=== PATIENT | male | born 1955 | race African-American/Black ===

== ENCOUNTER 2020-05-23 10:32 | Inpatient (IN) | payer BC, SELFPAY ==
[2020-05-23] MEDS ORDERED: Dexamethasone 4 mg/ml Vial ONE (10:52)
[2020-05-23 10:58] LABS: Hemoglobin 12.7 g/dL (14.0-18.0); Mean Corpuscular HGB CONC 32.8 g/dL (32.0-36.0); Mean Corpuscular Hemoglobin 30.7 pg (27.0-31.0); Mean Corpuscular Volume 93.9 fL (78.0-98.0); Mean Platelet Volume 8.1 fL (7.4-10.4); Platelet Count 428 thou/uL (130-400); RBC Distribution Width 12.8 % (11.5-14.5); Red Blood Cell (RBC) Count 4.14 mill/uL (4.70-6.10); White Blood Cell (WBC) Count 13.2 thou/uL (4.8-10.8)
[2020-05-23 11:23] LABS: ALT (SGPT) 20 U/L (8-55); AST (SGOT) 33 U/L (5-34); Alkaline Phosphatase 93 U/L (40-110); Anion Gap 20 mmol/L (10-20); BUN (Urea Nitrogen) 11 mg/dL (8.4-25.7); Bilirubin, Total 0.5 mg/dL (0.2-1.2); Calc. Creatinine Clearance 0 mL/min (70-130); Calcium 9.8 mg/dL (7.8-10.44); Carbon Dioxide 23 mmol/L (23-31); Chloride 95 mmol/L (98-107); Globulin 4.2 g/dL (2.4-3.5); Glucose 289 mg/dL (80-115); Potassium 3.2 mmol/L (3.5-5.1); Protein, Total 8.2 g/dL (5.8-8.1); Sodium 135 mmol/L (136-145)
[2020-05-23 11:38] LABS: Band 2 % (5-11); Lymphocytes 3 % (21-51); MDiff Complete? YES; Monocytes 6 % (0-10); Neutrophil 89 % (42-75); Platelet Morphology Comment Appears Increased; RBC Morphology Normal
[2020-05-23] MEDS ORDERED: Acetaminophen 650 MG Suppository PR PRN (13:27)
[2020-05-23] MEDS ORDERED: Loperamide HCl 2 MG CAP PO PRN ×2 (13:27)
[2020-05-23] MEDS ORDERED: Dextrose 5% in Water 1,000 ML IV PRN (13:29)
[2020-05-23] MEDS ORDERED: Electrolyte Replacement Protocol 1 EACH FS ONE (13:32)
[2020-05-23] MEDS ORDERED: Albuterol 200 PUFF (6.7GM INHALER) INH PRN (13:40)
[2020-05-23] MEDS ORDERED: Potassium Chloride 20 MEQ TAB PO SCH (13:45)
[2020-05-23] MEDS ORDERED: REMDESIVIR (EUA) 200 MG in Sodium Chloride 0.9% 250 ML 210 ML IV SCH (13:45)
[2020-05-23] MEDS ORDERED: Electrolyte Replacement Protocol 1 EACH FS SCH (13:45)
[2020-05-23] MEDS ORDERED: Azithromycin 500 MG in Sodium Chloride 0.9% 250 ML 250 ML IVPB SCH (14:00)
[2020-05-23] MEDS: cefTRIAXone\\ROCEPHIN 1 GM in Sodium Chloride 0.9% 100 ML IVPB SCH (14:54)
[2020-05-23 15:03] LABS: Lactic Acid 2.9 mmol/L (0.5-2.2)
[2020-05-23] MEDS: Azithromycin 500 MG in Sodium Chloride 0.9% 250 ML 250 ML IVPB SCH (17:53)
[2020-05-23] MEDS: HumaLOG 300 UNITS/3 ML VIAL SC PRN ×2 (17:54→21:15)
[2020-05-23] MEDS: Enoxaparin Sodium 40 MG/0.4 ML SYRINGE SC SCH (21:14)
[2020-05-24 06:14] LABS: #Lymphocytes 0.4 thou/uL (1.20-3.40); %Basophils 0.1 % (0.0-1.0); %Eosinophils 0.1 % (0.0-10.0); %Lymphocytes 4.1 % (21.0-51.0); %Monocytes 9.3 % (0.0-10.0); %Neutrophils 86.4 % (42.0-75.0); Hemoglobin 11.8 g/dL (14.0-18.0); Mean Corpuscular HGB CONC 32.7 g/dL (32.0-36.0); Mean Corpuscular Hemoglobin 30.7 pg (27.0-31.0); Mean Corpuscular Volume 93.9 fL (78.0-98.0); Mean Platelet Volume 8.1 fL (7.4-10.4); Platelet Count 443 thou/uL (130-400); RBC Distribution Width 12.7 % (11.5-14.5); Red Blood Cell (RBC) Count 3.85 mill/uL (4.70-6.10); White Blood Cell (WBC) Count 10.4 thou/uL (4.8-10.8)
[2020-05-24 06:36] LABS: Anion Gap 18 mmol/L (10-20); BUN (Urea Nitrogen) 10 mg/dL (8.4-25.7); Calc. Creatinine Clearance 112 mL/min (70-130); Calcium 9.4 mg/dL (7.8-10.44); Carbon Dioxide 23 mmol/L (23-31); Chloride 100 mmol/L (98-107); Glucose 165 mg/dL (80-115); Potassium 3.8 mmol/L (3.5-5.1); Sodium 137 mmol/L (136-145)
[2020-05-24] MEDS ORDERED: Amlodipine 5 MG TAB PO SCH (09:00)
[2020-05-24] MEDS: metFORMIN 500 MG TAB PO SCH ×2 (09:15→17:17)
[2020-05-24] MEDS: Dexamethasone 4 MG TAB PO SCH (09:15)
[2020-05-24] MEDS: Aspirin 81 mg Enteric Coated Tablet PO SCH (09:16)
[2020-05-24] MEDS: Enoxaparin Sodium 40 MG/0.4 ML SYRINGE SC SCH ×2 (09:16→21:19)
[2020-05-24] MEDS: Aspirin Chewable 81 MG TAB PO SCH (09:36)
[2020-05-24] MEDS: cefTRIAXone\\ROCEPHIN 1 GM in Sodium Chloride 0.9% 100 ML IVPB SCH (12:58)
[2020-05-24] MEDS: HumaLOG 300 UNITS/3 ML VIAL SC PRN ×2 (15:42→21:21)
[2020-05-24] MEDS: Azithromycin 500 MG in Sodium Chloride 0.9% 250 ML 250 ML IVPB SCH (17:51)
[2020-05-24] MEDS: REMDESIVIR (EUA) 100 MG in Sodium Chloride 0.9% 250 ML 230 ML IV SCH (17:51)
[2020-05-25 07:27] LABS: Anion Gap 20 mmol/L (10-20); BUN (Urea Nitrogen) 15 mg/dL (8.4-25.7); Calc. Creatinine Clearance 119 mL/min (70-130); Calcium 9.6 mg/dL (7.8-10.44); Carbon Dioxide 23 mmol/L (23-31); Chloride 100 mmol/L (98-107); Glucose 138 mg/dL (80-115); Potassium 4.3 mmol/L (3.5-5.1); Sodium 139 mmol/L (136-145)
[2020-05-25 07:46] LABS: Band 9 % (5-11); Hemoglobin 12.6 g/dL (14.0-18.0); Lymphocytes 6 % (21-51); MDiff Complete? YES; Mean Corpuscular HGB CONC 33.6 g/dL (32.0-36.0); Mean Corpuscular Hemoglobin 31.8 pg (27.0-31.0); Mean Corpuscular Volume 94.6 fL (78.0-98.0); Mean Platelet Volume 8.1 fL (7.4-10.4); Monocytes 4 % (0-10); Neutrophil 81 % (42-75); Platelet Count 498 thou/uL (130-400); Platelet Morphology Comment Appears Increased; RBC Distribution Width 12.8 % (11.5-14.5); Red Blood Cell (RBC) Count 3.96 mill/uL (4.70-6.10); White Blood Cell (WBC) Count 9.1 thou/uL (4.8-10.8)
[2020-05-25] MEDS: Dexamethasone 4 MG TAB PO SCH (08:38)
[2020-05-25] MEDS: metFORMIN 500 MG TAB PO SCH ×2 (08:38→17:14)
[2020-05-25] MEDS: Enoxaparin Sodium 40 MG/0.4 ML SYRINGE SC SCH ×2 (08:39→20:32)
[2020-05-25] MEDS: Aspirin Chewable 81 MG TAB PO SCH (10:35)
[2020-05-25] MEDS: Aspirin 81 mg Enteric Coated Tablet PO SCH (10:42)
[2020-05-25] MEDS ORDERED: Cholecalciferol (Vitamin D3) 400 UNITS TAB PO SCH (11:45)
[2020-05-25] MEDS ORDERED: Ascorbic Acid 500 mg Chewable Tablet PO SCH (11:45)
[2020-05-25] MEDS ORDERED: Zinc Sulfate 220 MG CAP PO SCH (11:45)
[2020-05-25] MEDS: cefTRIAXone\\ROCEPHIN 1 GM in Sodium Chloride 0.9% 100 ML IVPB SCH (13:05)
[2020-05-25] MEDS: HumaLOG 300 UNITS/3 ML VIAL SC PRN ×2 (14:05→17:14)
[2020-05-25] MEDS: REMDESIVIR (EUA) 100 MG in Sodium Chloride 0.9% 250 ML 230 ML IV SCH (14:15)
[2020-05-25] MEDS: Azithromycin 500 MG in Sodium Chloride 0.9% 250 ML 250 ML IVPB SCH (17:14)
[2020-05-26] MEDS: Acetaminophen 325 MG TAB PO PRN (05:08)
[2020-05-26 06:26] LABS: #Lymphocytes 0.7 thou/uL (1.20-3.40); #Monocytes 0.4 thou/uL (0.11-0.59); #Neutrophils 7.8 thou/uL (1.40-6.50); %Basophils 0.2 % (0.0-1.0); %Eosinophils 0.2 % (0.0-10.0); %Lymphocytes 7.8 % (21.0-51.0); %Monocytes 4.9 % (0.0-10.0); %Neutrophils 86.9 % (42.0-75.0); Hemoglobin 12.5 g/dL (14.0-18.0); Mean Corpuscular HGB CONC 32.5 g/dL (32.0-36.0); Mean Corpuscular Hemoglobin 30.6 pg (27.0-31.0); Mean Corpuscular Volume 93.9 fL (78.0-98.0); Mean Platelet Volume 7.7 fL (7.4-10.4); Platelet Count 534 thou/uL (130-400); RBC Distribution Width 12.8 % (11.5-14.5); Red Blood Cell (RBC) Count 4.09 mill/uL (4.70-6.10); White Blood Cell (WBC) Count 8.9 thou/uL (4.8-10.8)
[2020-05-26 06:48] LABS: Anion Gap 16 mmol/L (10-20); BUN (Urea Nitrogen) 13 mg/dL (8.4-25.7); Calc. Creatinine Clearance 124 mL/min (70-130); Calcium 9.2 mg/dL (7.8-10.44); Carbon Dioxide 25 mmol/L (23-31); Chloride 99 mmol/L (98-107); Glucose 95 mg/dL (80-115); Potassium 3.8 mmol/L (3.5-5.1); Sodium 136 mmol/L (136-145)
[2020-05-26 06:50] LABS: ALT (SGPT) 16 U/L (8-55); AST (SGOT) 31 U/L (5-34); Albumin 3.4 g/dL (3.4-4.8); Alkaline Phosphatase 105 U/L (40-110); Bilirubin, Direct 0.2 mg/dL (0.1-0.3); Bilirubin, Total 0.3 mg/dL (0.2-1.2); CRP (Inflammatory) 9.67 mg/dL (= or < 0.5); Protein, Total 7.3 g/dL (5.8-8.1)
[2020-05-26] MEDS: Cholecalciferol (Vitamin D3) 400 UNITS TAB PO SCH (08:32)
[2020-05-26] MEDS: Ascorbic Acid 500 mg Chewable Tablet PO SCH (08:32)
[2020-05-26] MEDS: metFORMIN 500 MG TAB PO SCH ×2 (08:33→16:45)
[2020-05-26] MEDS: Aspirin 81 mg Enteric Coated Tablet PO SCH (08:33)
[2020-05-26] MEDS: Dexamethasone 4 MG TAB PO SCH (08:33)
[2020-05-26] MEDS: Enoxaparin Sodium 40 MG/0.4 ML SYRINGE SC SCH ×2 (08:36→21:17)
[2020-05-26] MEDS: Zinc Sulfate 220 MG CAP PO SCH (08:37)
[2020-05-26] MEDS: HumaLOG 300 UNITS/3 ML VIAL SC PRN ×3 (13:25→21:17)
[2020-05-26] MEDS: REMDESIVIR (EUA) 100 MG in Sodium Chloride 0.9% 250 ML 230 ML IV SCH (15:14)
[2020-05-27] MEDS: Acetaminophen 325 MG TAB PO PRN (04:50)
[2020-05-27 06:21] LABS: #Lymphocytes 0.7 thou/uL (1.20-3.40); #Monocytes 0.4 thou/uL (0.11-0.59); #Neutrophils 8.2 thou/uL (1.40-6.50); %Basophils 0.1 % (0.0-1.0); %Eosinophils 0.5 % (0.0-10.0); %Monocytes 3.8 % (0.0-10.0); %Neutrophils 88.6 % (42.0-75.0); Hemoglobin 12.5 g/dL (14.0-18.0); Mean Corpuscular HGB CONC 32.8 g/dL (32.0-36.0); Mean Corpuscular Hemoglobin 31.6 pg (27.0-31.0); Mean Corpuscular Volume 96.3 fL (78.0-98.0); Platelet Count 504 thou/uL (130-400); RBC Distribution Width 12.9 % (11.5-14.5); Red Blood Cell (RBC) Count 3.96 mill/uL (4.70-6.10); White Blood Cell (WBC) Count 9.2 thou/uL (4.8-10.8)
[2020-05-27 06:44] LABS: Anion Gap 17 mmol/L (10-20); BUN (Urea Nitrogen) 14 mg/dL (8.4-25.7); Calc. Creatinine Clearance 120 mL/min (70-130); Calcium 9.2 mg/dL (7.8-10.44); Carbon Dioxide 25 mmol/L (23-31); Chloride 100 mmol/L (98-107); Glucose 103 mg/dL (80-115); Potassium 3.9 mmol/L (3.5-5.1); Sodium 138 mmol/L (136-145)
[2020-05-27] MEDS: Cholecalciferol (Vitamin D3) 400 UNITS TAB PO SCH (07:40)
[2020-05-27] MEDS: Aspirin 81 mg Enteric Coated Tablet PO SCH (07:41)
[2020-05-27] MEDS: metFORMIN 500 MG TAB PO SCH ×2 (07:41→16:29)
[2020-05-27] MEDS: Dexamethasone 4 MG TAB PO SCH (07:41)
[2020-05-27] MEDS: Ascorbic Acid 500 mg Chewable Tablet PO SCH (07:41)
[2020-05-27] MEDS: Zinc Sulfate 220 MG CAP PO SCH (07:42)
[2020-05-27] MEDS: Enoxaparin Sodium 40 MG/0.4 ML SYRINGE SC SCH ×2 (07:42→21:22)
[2020-05-27] MEDS: HumaLOG 300 UNITS/3 ML VIAL SC PRN ×2 (12:08→16:29)
[2020-05-27] MEDS: REMDESIVIR (EUA) 100 MG in Sodium Chloride 0.9% 250 ML 230 ML IV SCH (15:28)
[2020-05-28] MEDS: Acetaminophen 325 MG TAB PO PRN (05:45)
[2020-05-28 07:10] LABS: #Lymphocytes 0.5 thou/uL (1.20-3.40); #Monocytes 0.4 thou/uL (0.11-0.59); #Neutrophils 8.7 thou/uL (1.40-6.50); %Basophils 0.1 % (0.0-1.0); %Eosinophils 0.4 % (0.0-10.0); %Lymphocytes 5.5 % (21.0-51.0); %Monocytes 4.3 % (0.0-10.0); %Neutrophils 89.7 % (42.0-75.0); Hemoglobin 11.9 g/dL (14.0-18.0); Mean Corpuscular HGB CONC 32.4 g/dL (32.0-36.0); Mean Corpuscular Hemoglobin 31.1 pg (27.0-31.0); Mean Platelet Volume 7.7 fL (7.4-10.4); Platelet Count 469 thou/uL (130-400); RBC Distribution Width 12.8 % (11.5-14.5); Red Blood Cell (RBC) Count 3.82 mill/uL (4.70-6.10); White Blood Cell (WBC) Count 9.6 thou/uL (4.8-10.8)
[2020-05-28 07:24] LABS: Anion Gap 14 mmol/L (10-20); BUN (Urea Nitrogen) 14 mg/dL (8.4-25.7); Calc. Creatinine Clearance 122 mL/min (70-130); Carbon Dioxide 25 mmol/L (23-31); Chloride 100 mmol/L (98-107); Glucose 133 mg/dL (80-115); Potassium 4.2 mmol/L (3.5-5.1); Sodium 135 mmol/L (136-145)
[2020-05-28] MEDS: Zinc Sulfate 220 MG CAP PO SCH (07:42)
[2020-05-28] MEDS: Cholecalciferol (Vitamin D3) 400 UNITS TAB PO SCH (07:42)
[2020-05-28] MEDS: Aspirin 81 mg Enteric Coated Tablet PO SCH (07:43)
[2020-05-28] MEDS: Ascorbic Acid 500 mg Chewable Tablet PO SCH (07:43)
[2020-05-28] MEDS: metFORMIN 500 MG TAB PO SCH ×2 (07:43→16:32)
[2020-05-28] MEDS: Dexamethasone 4 MG TAB PO SCH (07:43)
[2020-05-28] MEDS: Enoxaparin Sodium 40 MG/0.4 ML SYRINGE SC SCH ×2 (07:43→21:15)
[2020-05-28] MEDS: HumaLOG 300 UNITS/3 ML VIAL SC PRN ×2 (11:46→16:32)
[2020-05-29 06:17] LABS: #Lymphocytes 0.8 thou/uL (1.20-3.40); #Monocytes 0.5 thou/uL (0.11-0.59); #Neutrophils 8.6 thou/uL (1.40-6.50); %Basophils 0.1 % (0.0-1.0); %Eosinophils 0.1 % (0.0-10.0); %Lymphocytes 7.7 % (21.0-51.0); %Monocytes 4.9 % (0.0-10.0); %Neutrophils 87.2 % (42.0-75.0); Hemoglobin 12.4 g/dL (14.0-18.0); Mean Corpuscular HGB CONC 32.7 g/dL (32.0-36.0); Mean Corpuscular Hemoglobin 30.9 pg (27.0-31.0); Mean Corpuscular Volume 94.6 fL (78.0-98.0); Mean Platelet Volume 7.6 fL (7.4-10.4); Platelet Count 450 thou/uL (130-400); RBC Distribution Width 12.7 % (11.5-14.5); White Blood Cell (WBC) Count 9.8 thou/uL (4.8-10.8)
[2020-05-29 06:41] LABS: Anion Gap 15 mmol/L (10-20); BUN (Urea Nitrogen) 13 mg/dL (8.4-25.7); Calc. Creatinine Clearance 120 mL/min (70-130); Calcium 9.3 mg/dL (7.8-10.44); Carbon Dioxide 25 mmol/L (23-31); Chloride 101 mmol/L (98-107); Glucose 141 mg/dL (80-115); Potassium 4.1 mmol/L (3.5-5.1); Sodium 137 mmol/L (136-145)
[2020-05-29] MEDS: Enoxaparin Sodium 40 MG/0.4 ML SYRINGE SC SCH ×2 (09:15→21:40)
[2020-05-29] MEDS: Dexamethasone 4 MG TAB PO SCH (09:15)
[2020-05-29] MEDS: Zinc Sulfate 220 MG CAP PO SCH (09:17)
[2020-05-29] MEDS: Cholecalciferol (Vitamin D3) 400 UNITS TAB PO SCH (09:18)
[2020-05-29] MEDS: metFORMIN 500 MG TAB PO SCH (09:18)
[2020-05-29] MEDS: Ascorbic Acid 500 mg Chewable Tablet PO SCH (09:19)
[2020-05-29] MEDS: Aspirin 81 mg Enteric Coated Tablet PO SCH (09:19)
[2020-05-29] MEDS: HumaLOG 300 UNITS/3 ML VIAL SC PRN ×3 (11:56→21:41)
[2020-05-29] MEDS ORDERED: Iopamidol-370 76% 500 ML 1 ML ONE (14:15)
[2020-05-30] MEDS: Acetaminophen 325 MG TAB PO PRN (04:50)
[2020-05-30 05:54] LABS: #Lymphocytes 0.7 thou/uL (1.20-3.40); #Monocytes 0.3 thou/uL (0.11-0.59); #Neutrophils 9.1 thou/uL (1.40-6.50); %Basophils 0.1 % (0.0-1.0); %Eosinophils 0.4 % (0.0-10.0); %Lymphocytes 6.7 % (21.0-51.0); %Monocytes 3.2 % (0.0-10.0); %Neutrophils 89.6 % (42.0-75.0); Hemoglobin 12.5 g/dL (14.0-18.0); Mean Corpuscular HGB CONC 32.2 g/dL (32.0-36.0); Mean Corpuscular Hemoglobin 30.4 pg (27.0-31.0); Mean Corpuscular Volume 94.4 fL (78.0-98.0); Mean Platelet Volume 7.7 fL (7.4-10.4); Platelet Count 463 thou/uL (130-400); RBC Distribution Width 12.9 % (11.5-14.5); Red Blood Cell (RBC) Count 4.12 mill/uL (4.70-6.10); White Blood Cell (WBC) Count 10.2 thou/uL (4.8-10.8)
[2020-05-30 06:15] LABS: Anion Gap 14 mmol/L (10-20); BUN (Urea Nitrogen) 11 mg/dL (8.4-25.7); Calc. Creatinine Clearance 128 mL/min (70-130); Calcium 9.3 mg/dL (7.8-10.44); Carbon Dioxide 26 mmol/L (23-31); Chloride 99 mmol/L (98-107); Glucose 115 mg/dL (80-115); Sodium 135 mmol/L (136-145)
[2020-05-30] MEDS: Enoxaparin Sodium 40 MG/0.4 ML SYRINGE SC SCH ×2 (08:52→21:38)
[2020-05-30] MEDS: Cholecalciferol (Vitamin D3) 400 UNITS TAB PO SCH (08:52)
[2020-05-30] MEDS: Zinc Sulfate 220 MG CAP PO SCH (08:52)
[2020-05-30] MEDS: Dexamethasone 4 MG TAB PO SCH (08:52)
[2020-05-30] MEDS: Ascorbic Acid 500 mg Chewable Tablet PO SCH (08:52)
[2020-05-30] MEDS: Aspirin 81 mg Enteric Coated Tablet PO SCH (08:52)
[2020-05-30] MEDS: HumaLOG 300 UNITS/3 ML VIAL SC PRN ×3 (12:32→22:27)
[2020-05-30] MEDS: Albuterol 200 PUFF (6.7GM INHALER) INH SCH ×2 (16:16→21:39)
[2020-05-30] MEDS: guaiFENesin ER 600 MG TAB PO SCH (21:38)
[2020-05-31] MEDS: Albuterol 200 PUFF (6.7GM INHALER) INH SCH ×4 (01:25→17:01)
[2020-05-31] MEDS: Cholecalciferol (Vitamin D3) 400 UNITS TAB PO SCH (08:28)
[2020-05-31] MEDS: guaiFENesin ER 600 MG TAB PO SCH ×2 (08:29→19:37)
[2020-05-31] MEDS: Ascorbic Acid 500 mg Chewable Tablet PO SCH (08:29)
[2020-05-31] MEDS: Acetaminophen 325 MG TAB PO PRN (08:29)
[2020-05-31] MEDS: Dexamethasone 4 MG TAB PO SCH (08:30)
[2020-05-31] MEDS: Aspirin 81 mg Enteric Coated Tablet PO SCH (08:30)
[2020-05-31] MEDS: Zinc Sulfate 220 MG CAP PO SCH (08:30)
[2020-05-31] MEDS: Enoxaparin Sodium 40 MG/0.4 ML SYRINGE SC SCH ×2 (08:31→19:37)
[2020-05-31] MEDS: HumaLOG 300 UNITS/3 ML VIAL SC PRN ×3 (12:05→20:21)
[2020-05-31] MEDS ORDERED: Insulin Glargine 8 UNITS in Pre-Filled Syringe 1 EACH SC SCH (23:59)
[2020-06-01] MEDS: Albuterol 200 PUFF (6.7GM INHALER) INH SCH ×4 (02:00→18:19)
[2020-06-01 07:48] LABS: #Lymphocytes 0.8 thou/uL (1.20-3.40); #Monocytes 0.5 thou/uL (0.11-0.59); %Basophils 0.1 % (0.0-1.0); %Eosinophils 0.2 % (0.0-10.0); %Lymphocytes 6.5 % (21.0-51.0); %Monocytes 4.3 % (0.0-10.0); %Neutrophils 88.8 % (42.0-75.0); Mean Corpuscular HGB CONC 31.4 g/dL (32.0-36.0); Mean Corpuscular Hemoglobin 29.6 pg (27.0-31.0); Mean Corpuscular Volume 94.4 fL (78.0-98.0); Mean Platelet Volume 7.8 fL (7.4-10.4); Platelet Count 416 thou/uL (130-400); RBC Distribution Width 12.9 % (11.5-14.5); Red Blood Cell (RBC) Count 4.05 mill/uL (4.70-6.10); White Blood Cell (WBC) Count 12.4 thou/uL (4.8-10.8)
[2020-06-01 07:54] LABS: Anion Gap 13 mmol/L (10-20); BUN (Urea Nitrogen) 9 mg/dL (8.4-25.7); Calc. Creatinine Clearance 124 mL/min (70-130); Calcium 9.3 mg/dL (7.8-10.44); Carbon Dioxide 28 mmol/L (23-31); Chloride 99 mmol/L (98-107); Glucose 180 mg/dL (80-115); Sodium 136 mmol/L (136-145)
[2020-06-01] MEDS: Cholecalciferol (Vitamin D3) 400 UNITS TAB PO SCH (07:56)
[2020-06-01] MEDS: Zinc Sulfate 220 MG CAP PO SCH (07:56)
[2020-06-01] MEDS: Aspirin 81 mg Enteric Coated Tablet PO SCH (07:56)
[2020-06-01] MEDS: Dexamethasone 4 MG TAB PO SCH (07:57)
[2020-06-01] MEDS: Ascorbic Acid 500 mg Chewable Tablet PO SCH (07:57)
[2020-06-01] MEDS: guaiFENesin ER 600 MG TAB PO SCH ×2 (07:57→21:00)
[2020-06-01] MEDS: Enoxaparin Sodium 40 MG/0.4 ML SYRINGE SC SCH ×2 (07:58→21:00)
[2020-06-01] MEDS: HumaLOG 300 UNITS/3 ML VIAL SC PRN ×3 (12:31→21:05)
[2020-06-01] MEDS ORDERED: Insulin Glargine 8 UNITS in Pre-Filled Syringe 1 EACH SC SCH (21:00)
[2020-06-01] MEDS: Insulin Glargine 12 UNITS in Pre-Filled Syringe 1 EACH SC SCH (21:01)
[2020-06-02] MEDS: Albuterol 200 PUFF (6.7GM INHALER) INH SCH ×4 (01:20→18:18)
[2020-06-02] MEDS: HumaLOG 300 UNITS/3 ML VIAL SC PRN ×4 (05:28→20:12)
[2020-06-02 07:08] LABS: Anion Gap 14 mmol/L (10-20); BUN (Urea Nitrogen) 13 mg/dL (8.4-25.7); CRP (Inflammatory) 12.99 mg/dL (= or < 0.5); Calc. Creatinine Clearance 117 mL/min (70-130); Calcium 9.6 mg/dL (7.8-10.44); Carbon Dioxide 25 mmol/L (23-31); Chloride 101 mmol/L (98-107); Glucose 176 mg/dL (80-115); Sodium 136 mmol/L (136-145)
[2020-06-02 07:10] LABS: Band 3 % (5-11); Hemoglobin 12.2 g/dL (14.0-18.0); Hypochromia SLIGHT = 6-15 cells (100X) (0-5/hpf); Lymphocytes 5 % (21-51); MDiff Complete? YES; Mean Corpuscular HGB CONC 31.7 g/dL (32.0-36.0); Mean Corpuscular Volume 94.5 fL (78.0-98.0); Mean Platelet Volume 7.8 fL (7.4-10.4); Monocytes 4 % (0-10); Neutrophil 88 % (42-75); Platelet Count 372 thou/uL (130-400); Platelet Morphology Comment Appears Adequate; RBC Distribution Width 13.1 % (11.5-14.5); Red Blood Cell (RBC) Count 4.07 mill/uL (4.70-6.10); White Blood Cell (WBC) Count 10.5 thou/uL (4.8-10.8)
[2020-06-02] MEDS: Ascorbic Acid 500 mg Chewable Tablet PO SCH (09:05)
[2020-06-02] MEDS: guaiFENesin ER 600 MG TAB PO SCH ×2 (09:05→20:09)
[2020-06-02] MEDS: Dexamethasone 4 MG TAB PO SCH (09:05)
[2020-06-02] MEDS: Enoxaparin Sodium 40 MG/0.4 ML SYRINGE SC SCH ×2 (09:05→20:09)
[2020-06-02] MEDS: Cholecalciferol (Vitamin D3) 400 UNITS TAB PO SCH (09:05)
[2020-06-02] MEDS: Aspirin 81 mg Enteric Coated Tablet PO SCH (09:05)
[2020-06-02] MEDS: Zinc Sulfate 220 MG CAP PO SCH (09:06)
[2020-06-02] MEDS: Acetaminophen 325 MG TAB PO PRN (20:10)
[2020-06-02] MEDS: Insulin Glargine 12 UNITS in Pre-Filled Syringe 1 EACH SC SCH (20:11)
[2020-06-03] MEDS: Albuterol 200 PUFF (6.7GM INHALER) INH SCH ×4 (00:31→19:00)
[2020-06-03] MEDS: Guaifenesin DM 100-10/5 ML UDCUP PO PRN (01:51)
[2020-06-03] MEDS: HumaLOG 300 UNITS/3 ML VIAL SC PRN ×4 (05:24→21:04)
[2020-06-03 07:16] LABS: #Lymphocytes 0.8 thou/uL (1.20-3.40); #Monocytes 0.8 thou/uL (0.11-0.59); #Neutrophils 11.4 thou/uL (1.40-6.50); %Basophils 0.1 % (0.0-1.0); %Eosinophils 0.3 % (0.0-10.0); %Lymphocytes 6.3 % (21.0-51.0); %Monocytes 6.2 % (0.0-10.0); %Neutrophils 87.2 % (42.0-75.0); Hemoglobin 12.8 g/dL (14.0-18.0); Mean Corpuscular HGB CONC 32.3 g/dL (32.0-36.0); Mean Platelet Volume 8.1 fL (7.4-10.4); Platelet Count 350 thou/uL (130-400); RBC Distribution Width 13.1 % (11.5-14.5); Red Blood Cell (RBC) Count 4.12 mill/uL (4.70-6.10); White Blood Cell (WBC) Count 13.1 thou/uL (4.8-10.8)
[2020-06-03 07:26] LABS: Anion Gap 17 mmol/L (10-20); BUN (Urea Nitrogen) 11 mg/dL (8.4-25.7); Calc. Creatinine Clearance 122 mL/min (70-130); Calcium 9.3 mg/dL (7.8-10.44); Carbon Dioxide 24 mmol/L (23-31); Chloride 101 mmol/L (98-107); Glucose 130 mg/dL (80-115); Potassium 3.8 mmol/L (3.5-5.1); Sodium 138 mmol/L (136-145)
[2020-06-03] MEDS: Zinc Sulfate 220 MG CAP PO SCH (08:03)
[2020-06-03] MEDS: Cholecalciferol (Vitamin D3) 400 UNITS TAB PO SCH (08:03)
[2020-06-03] MEDS: guaiFENesin ER 600 MG TAB PO SCH ×2 (08:03→21:02)
[2020-06-03] MEDS: Ascorbic Acid 500 mg Chewable Tablet PO SCH (08:03)
[2020-06-03] MEDS: Aspirin 81 mg Enteric Coated Tablet PO SCH (08:04)
[2020-06-03] MEDS: Enoxaparin Sodium 40 MG/0.4 ML SYRINGE SC SCH ×2 (08:04→21:03)
[2020-06-03] MEDS: Dexamethasone 4 MG TAB PO SCH (08:04)
[2020-06-03] MEDS: Acetaminophen 325 MG TAB PO PRN (21:02)
[2020-06-03] MEDS: Insulin Glargine 12 UNITS in Pre-Filled Syringe 1 EACH SC SCH (21:03)
[2020-06-04] MEDS: Albuterol 200 PUFF (6.7GM INHALER) INH SCH ×4 (01:23→20:06)
[2020-06-04] MEDS: Guaifenesin DM 100-10/5 ML UDCUP PO PRN (02:49)
[2020-06-04] MEDS: Acetaminophen 325 MG TAB PO PRN (02:49)
[2020-06-04 06:36] LABS: Anion Gap 16 mmol/L (10-20); BUN (Urea Nitrogen) 11 mg/dL (8.4-25.7); CRP (Inflammatory) 19.58 mg/dL (= or < 0.5); Calc. Creatinine Clearance 134 mL/min (70-130); Calcium 9.4 mg/dL (7.8-10.44); Carbon Dioxide 23 mmol/L (23-31); Chloride 101 mmol/L (98-107); Glucose 123 mg/dL (80-115); Potassium 3.6 mmol/L (3.5-5.1); Sodium 136 mmol/L (136-145)
[2020-06-04 06:37] LABS: Band 2 % (5-11); Hemoglobin 12.5 g/dL (14.0-18.0); Hypochromia SLIGHT = 6-15 cells (100X) (0-5/hpf); Lymphocytes 7 % (21-51); MDiff Complete? YES; Mean Corpuscular HGB CONC 32.5 g/dL (32.0-36.0); Mean Corpuscular Hemoglobin 30.5 pg (27.0-31.0); Mean Platelet Volume 7.9 fL (7.4-10.4); Monocytes 9 % (0-10); Neutrophil 82 % (42-75); Platelet Count 344 thou/uL (130-400); Platelet Morphology Comment Appears Adequate; RBC Distribution Width 13.3 % (11.5-14.5); Red Blood Cell (RBC) Count 4.11 mill/uL (4.70-6.10); White Blood Cell (WBC) Count 18.1 thou/uL (4.8-10.8)
[2020-06-04] MEDS ORDERED: Propofol 1,000 MG/100 ML VIAL IV ONE (08:21)
[2020-06-04] MEDS ORDERED: Ventilator Sedation Protocol 1 EACH FS SCH (08:30)
[2020-06-04] MEDS ORDERED: DISCONTINUE PREVIOUS NARCOTIC PAIN MEDICATIONS AND BENZODIAZEPINES FS SCH (08:30)
[2020-06-04] MEDS ORDERED: Fentanyl BOLUS 250 ML IVPB PRN (08:30)
[2020-06-04] MEDS ORDERED: Propofol BOLUS 1,000 MG/100 ML VIAL IV PRN (08:30)
[2020-06-04] MEDS ORDERED: Morphine 2 MG/ML VIAL SLOW IVP PRN (08:30)
[2020-06-04] MEDS: Dexamethasone 4 MG TAB PO SCH (08:45)
[2020-06-04] MEDS: guaiFENesin ER 600 MG TAB PO SCH (08:45)
[2020-06-04] MEDS: Aspirin 81 mg Enteric Coated Tablet PO SCH (08:45)
[2020-06-04] MEDS ORDERED: Lorazepam 2 MG/ML VIAL ONE (08:45)
[2020-06-04] MEDS ORDERED: Fentanyl CADD 100 ML ONE (08:45)
[2020-06-04] MEDS ORDERED: Metoprolol Tartrate 5 MG/5 ML VIAL ONE (10:13)
[2020-06-04] MEDS: Dexamethasone 4 mg/ml Vial SLOW IVP SCH ×2 (10:15→21:55)
[2020-06-04 10:31] LABS: Actual Bicarbonate (HCO3a) 30.1 mEq/L (22-28); Base Excess (BEa) -0.7 mEq/L (-2.0 to +3.0); Calcium, Ionized (arterial) 1.23 mmol/L (1.12-1.30); Carboxyhemoglobin (COHb) 0.3 gm% (0.0-3.0); Hemoglobin (Hb) 13.5 g/dL (14.0-18.0); Potassium - ABG Lab 3.95 mmol/L (3.70-5.30)
[2020-06-04 10:32] LABS: O2 Tension (PaO2), arterial 56.4 mmHg (> 80.0); Puncture Site LRA; pH, Arterial 7.17 (7.35-7.45)
[2020-06-04] MEDS: Vecuronium 10 MG VIAL IV PRN ×2 (11:53→15:27)
[2020-06-04] MEDS: Lorazepam 2 MG/ML VIAL SLOW IVP PRN ×2 (11:53→15:28)
[2020-06-04] MEDS: GUAIFENESIN SF SOLN 200 MG/10 ML UDCUP PO SCH ×3 (11:54→23:06)
[2020-06-04] MEDS ORDERED: Cefepime 1 GM in Sodium Chloride 0.9% 100 ML IVPB SCH (12:00)
[2020-06-04] MEDS ORDERED: HumaLOG 300 UNITS/3 ML VIAL SC SCH (13:15)
[2020-06-04] MEDS: Sodium Chloride 0.9% 1,000 ML IV SCH (14:25)
[2020-06-04] MEDS: Enoxaparin Sodium 40 MG/0.4 ML SYRINGE SC SCH (14:49)
[2020-06-04] MEDS: Propofol 1,000 MG/100 ML VIAL IV PRN (14:49)
[2020-06-04] MEDS: HumaLOG 300 UNITS/3 ML VIAL SC PRN ×2 (18:06→21:52)
[2020-06-04] MEDS: Mometasone 200 MCG/Formoterol 5 MCG 120 PUFF INHALER INH SCH (19:59)
[2020-06-04] MEDS: Insulin Glargine 17 UNITS in Pre-Filled Syringe 1 EACH SC SCH (21:52)
[2020-06-04] MEDS: Cefepime 1 GM in Sodium Chloride 0.9% 100 ML IVPB SCH (21:54)
[2020-06-04] MEDS: Metoprolol Tartrate 25 MG TAB PO SCH (21:55)
[2020-06-04] MEDS: Enoxaparin Sodium 60 MG/0.6 ML SYRINGE SC SCH (21:55)
[2020-06-04] MEDS: Famotidine/PF 20 mg/2ml Vial SLOW IVP SCH (21:55)
[2020-06-04] MEDS: Colchicine 0.6 MG TAB PO SCH (21:56)
[2020-06-05] MEDS: Albuterol 200 PUFF (6.7GM INHALER) INH SCH ×4 (01:00→19:32)
[2020-06-05] MEDS: Propofol 1,000 MG/100 ML VIAL IV PRN ×3 (01:19→19:20)
[2020-06-05] MEDS: Sodium Chloride 0.9% 1,000 ML IV SCH ×4 (01:20→18:18)
[2020-06-05 03:39] LABS: #Lymphocytes 0.4 thou/uL (1.20-3.40); #Monocytes 0.3 thou/uL (0.11-0.59); #Neutrophils 13.2 thou/uL (1.40-6.50); %Basophils 0.1 % (0.0-1.0); %Eosinophils 0.1 % (0.0-10.0); %Lymphocytes 2.9 % (21.0-51.0); %Monocytes 2.2 % (0.0-10.0); %Neutrophils 94.8 % (42.0-75.0); Hemoglobin 11.1 g/dL (14.0-18.0); Mean Corpuscular HGB CONC 30.6 g/dL (32.0-36.0); Mean Corpuscular Hemoglobin 29.6 pg (27.0-31.0); Mean Corpuscular Volume 96.7 fL (78.0-98.0); Mean Platelet Volume 7.9 fL (7.4-10.4); Platelet Count 257 thou/uL (130-400); RBC Distribution Width 13.6 % (11.5-14.5); Red Blood Cell (RBC) Count 3.76 mill/uL (4.70-6.10); White Blood Cell (WBC) Count 13.9 thou/uL (4.8-10.8)
[2020-06-05] MEDS ORDERED: Fentanyl CADD 100 ML ONE ×2 (03:56→23:35)
[2020-06-05] MEDS: GUAIFENESIN SF SOLN 200 MG/10 ML UDCUP PO SCH ×3 (05:26→18:30)
[2020-06-05] MEDS: HumaLOG 300 UNITS/3 ML VIAL SC PRN ×3 (05:41→22:05)
[2020-06-05 06:54] LABS: Anion Gap 20 mmol/L (10-20); BUN (Urea Nitrogen) 33 mg/dL (8.4-25.7); Calc. Creatinine Clearance 63 mL/min (70-130); Calcium 8.5 mg/dL (7.8-10.44); Carbon Dioxide 16 mmol/L (23-31); Chloride 106 mmol/L (98-107); Glucose 231 mg/dL (80-115); Potassium 6.4 mmol/L (3.5-5.1); Sodium 136 mmol/L (136-145)
[2020-06-05] MEDS: Mometasone 200 MCG/Formoterol 5 MCG 120 PUFF INHALER INH SCH ×2 (07:25→18:30)
[2020-06-05] MEDS ORDERED: Dextrose 50% Abboject 50 ML SYRINGE SLOW IVP SCH (08:45)
[2020-06-05] MEDS ORDERED: Insulin Regular 300 UNITS/3 ML VIAL IVP SCH (08:45)
[2020-06-05] MEDS ORDERED: Sodium Bicarbonate 150 MEQ in Dextrose 5% in Water 1,000 ML IV SCH ×2 (09:00→18:15)
[2020-06-05] MEDS: Enoxaparin Sodium 60 MG/0.6 ML SYRINGE SC SCH ×2 (09:25→20:41)
[2020-06-05] MEDS: Dexamethasone 4 mg/ml Vial SLOW IVP SCH ×2 (09:26→20:42)
[2020-06-05] MEDS: Famotidine/PF 20 mg/2ml Vial SLOW IVP SCH (09:26)
[2020-06-05] MEDS: Cefepime 1 GM in Sodium Chloride 0.9% 100 ML IVPB SCH ×2 (09:26→20:41)
[2020-06-05] MEDS: Colchicine 0.6 MG TAB PO SCH ×2 (09:27→20:43)
[2020-06-05] MEDS: Aspirin Chewable 81 MG TAB PO SCH (09:27)
[2020-06-05] MEDS: Metoprolol Tartrate 25 MG TAB PO SCH ×2 (09:27→20:42)
[2020-06-05 09:51] LABS: Potassium 5.7 mmol/L (3.5-5.1)
[2020-06-05] MEDS: Sodium Bicarbonate 150 MEQ in Dextrose 5% in Water 1,000 ML IV SCH ×2 (12:53→21:51)
[2020-06-05 15:28] LABS: Bacteria/HPF None Seen HPF (None Seen); Bilirubin Negative (Negative); Clarity Turbid (Clear); Glucose, Urine (Dipstick) Normal (Negative); Ketone, Urine Negative (Negative); Leukocyte Negative Leu/uL (Negative); Nitrite Negative (Negative); Protein, Urine (Dipstick) 50 mg/dL (Neg-Trace); RBC/HPF 21-50 HPF (0-3); Specific Gravity, Urine 1.026 (1.002-1.036); Squamous Epithelial 0-3 HPF (0-3); Urobilinogen Normal mg/dL (Less than 2); WBC/HPF None Seen HPF (0-3); pH, Urine 5.5 (5.0-9.0)
[2020-06-05 15:31] LABS: Blood, Urine 1+ (Negative)
[2020-06-05 15:32] LABS: Urine Culture Reflex No No
[2020-06-05 15:37] LABS: Anion Gap 18 mmol/L (10-20); Carbon Dioxide 18 mmol/L (23-31); Chloride 106 mmol/L (98-107); Potassium 6.2 mmol/L (3.5-5.1); Sodium 136 mmol/L (136-145)
[2020-06-05 15:38] LABS: BUN (Urea Nitrogen) 37 mg/dL (8.4-25.7); Calc. Creatinine Clearance 62 mL/min (70-130); Calcium 8.6 mg/dL (7.8-10.44); Glucose 352 mg/dL (80-115)
[2020-06-05 15:50] LABS: Creatinine, Urine 91.22 mg/dL (63-166)
[2020-06-05] MEDS: Famotidine 20 MG TAB PO SCH (20:42)
[2020-06-05] MEDS: Insulin Glargine 17 UNITS in Pre-Filled Syringe 1 EACH SC SCH (20:43)
[2020-06-06] MEDS: Albuterol 200 PUFF (6.7GM INHALER) INH SCH ×4 (01:14→19:55)
[2020-06-06] MEDS: GUAIFENESIN SF SOLN 200 MG/10 ML UDCUP PO SCH ×5 (01:37→23:23)
[2020-06-06] MEDS: Propofol 1,000 MG/100 ML VIAL IV PRN ×5 (01:51→22:57)
[2020-06-06 04:09] LABS: #Lymphocytes 0.4 thou/uL (1.20-3.40); #Monocytes 0.5 thou/uL (0.11-0.59); #Neutrophils 9.7 thou/uL (1.40-6.50); %Basophils 0.1 % (0.0-1.0); %Lymphocytes 3.5 % (21.0-51.0); %Monocytes 4.4 % (0.0-10.0); Hemoglobin 9.7 g/dL (14.0-18.0); Mean Corpuscular HGB CONC 32.5 g/dL (32.0-36.0); Mean Corpuscular Hemoglobin 30.8 pg (27.0-31.0); Mean Corpuscular Volume 94.7 fL (78.0-98.0); Mean Platelet Volume 8.3 fL (7.4-10.4); Platelet Count 223 thou/uL (130-400); RBC Distribution Width 13.4 % (11.5-14.5); Red Blood Cell (RBC) Count 3.16 mill/uL (4.70-6.10); White Blood Cell (WBC) Count 10.6 thou/uL (4.8-10.8)
[2020-06-06 04:31] LABS: Anion Gap 13 mmol/L (10-20); BUN (Urea Nitrogen) 41 mg/dL (8.4-25.7); CRP (Inflammatory) 16.98 mg/dL (= or < 0.5); Calc. Creatinine Clearance 57 mL/min (70-130); Calcium 8.4 mg/dL (7.8-10.44); Carbon Dioxide 28 mmol/L (23-31); Chloride 99 mmol/L (98-107); Glucose 312 mg/dL (80-115); Potassium 4.1 mmol/L (3.5-5.1); Sodium 136 mmol/L (136-145)
[2020-06-06] MEDS ORDERED: Sodium Bicarbonate 150 MEQ in Dextrose 5% in Water 1,000 ML IV SCH (05:22)
[2020-06-06] MEDS: Mometasone 200 MCG/Formoterol 5 MCG 120 PUFF INHALER INH SCH ×2 (07:40→19:55)
[2020-06-06] MEDS: Famotidine 20 MG TAB PO SCH ×2 (09:06→21:04)
[2020-06-06] MEDS: Colchicine 0.6 MG TAB PO SCH ×2 (09:06→21:03)
[2020-06-06] MEDS: Enoxaparin Sodium 60 MG/0.6 ML SYRINGE SC SCH ×2 (09:06→21:04)
[2020-06-06] MEDS: Metoprolol Tartrate 25 MG TAB PO SCH ×2 (09:06→21:03)
[2020-06-06] MEDS: Aspirin Chewable 81 MG TAB PO SCH (09:06)
[2020-06-06] MEDS: Dexamethasone 4 mg/ml Vial SLOW IVP SCH ×2 (09:07→21:04)
[2020-06-06] MEDS: Cefepime 1 GM in Sodium Chloride 0.9% 100 ML IVPB SCH ×2 (09:07→21:03)
[2020-06-06] MEDS: HumaLOG 300 UNITS/3 ML VIAL SC PRN ×3 (12:49→23:51)
[2020-06-06] MEDS ORDERED: Fentanyl CADD 100 ML ONE (14:45)
[2020-06-06] MEDS: Insulin Glargine 20 UNITS in Pre-Filled Syringe 1 EACH SC SCH (21:04)
[2020-06-07] MEDS: Albuterol 200 PUFF (6.7GM INHALER) INH SCH ×4 (00:57→18:34)
[2020-06-07] MEDS: Propofol 1,000 MG/100 ML VIAL IV PRN ×4 (04:07→18:00)
[2020-06-07 04:21] LABS: #Lymphocytes 0.4 thou/uL (1.20-3.40); #Monocytes 0.4 thou/uL (0.11-0.59); #Neutrophils 10.8 thou/uL (1.40-6.50); %Eosinophils 0.1 % (0.0-10.0); %Lymphocytes 3.4 % (21.0-51.0); %Monocytes 3.1 % (0.0-10.0); %Neutrophils 93.4 % (42.0-75.0); Hemoglobin 9.9 g/dL (14.0-18.0); Mean Corpuscular HGB CONC 32.8 g/dL (32.0-36.0); Mean Corpuscular Hemoglobin 31.1 pg (27.0-31.0); Mean Platelet Volume 8.8 fL (7.4-10.4); Platelet Count 229 thou/uL (130-400); RBC Distribution Width 13.1 % (11.5-14.5); Red Blood Cell (RBC) Count 3.19 mill/uL (4.70-6.10); White Blood Cell (WBC) Count 11.6 thou/uL (4.8-10.8)
[2020-06-07 04:33] LABS: Anion Gap 14 mmol/L (10-20); BUN (Urea Nitrogen) 45 mg/dL (8.4-25.7); Calc. Creatinine Clearance 59 mL/min (70-130); Calcium 8.5 mg/dL (7.8-10.44); Carbon Dioxide 29 mmol/L (23-31); Chloride 101 mmol/L (98-107); Glucose 217 mg/dL (80-115); Potassium 3.4 mmol/L (3.5-5.1); Sodium 141 mmol/L (136-145)
[2020-06-07] MEDS: GUAIFENESIN SF SOLN 200 MG/10 ML UDCUP PO SCH ×3 (05:04→17:22)
[2020-06-07] MEDS: Mometasone 200 MCG/Formoterol 5 MCG 120 PUFF INHALER INH SCH ×2 (07:00→18:35)
[2020-06-07] MEDS ORDERED: Fentanyl CADD 100 ML ONE ×2 (07:59→23:32)
[2020-06-07] MEDS: Colchicine 0.6 MG TAB PO SCH ×2 (09:07→21:43)
[2020-06-07] MEDS: Dexamethasone 4 mg/ml Vial SLOW IVP SCH ×2 (09:07→21:43)
[2020-06-07] MEDS: Cefepime 1 GM in Sodium Chloride 0.9% 100 ML IVPB SCH ×2 (09:08→21:43)
[2020-06-07] MEDS: Famotidine 20 MG TAB PO SCH ×2 (09:08→21:57)
[2020-06-07] MEDS: Metoprolol Tartrate 25 MG TAB PO SCH ×2 (09:08→21:43)
[2020-06-07] MEDS: Aspirin Chewable 81 MG TAB PO SCH (09:09)
[2020-06-07] MEDS: Enoxaparin Sodium 60 MG/0.6 ML SYRINGE SC SCH ×2 (09:09→21:43)
[2020-06-07] MEDS: HumaLOG 300 UNITS/3 ML VIAL SC PRN ×3 (09:59→22:32)
[2020-06-07] MEDS: Vecuronium 10 MG VIAL IV PRN (10:32)
[2020-06-07] MEDS: Lorazepam 2 MG/ML VIAL SLOW IVP PRN (10:32)
[2020-06-07] MEDS: Insulin Glargine 20 UNITS in Pre-Filled Syringe 1 EACH SC SCH (21:46)
[2020-06-07] MEDS ORDERED: Vecuronium 10 MG VIAL ONE (23:33)
[2020-06-07] MEDS ORDERED: Bacteriostatic Normal Saline 30 ML VIAL ONE (23:33)
[2020-06-08] MEDS: hydrALAZINE 20 MG/ML VIAL SLOW IVP PRN (00:24)
[2020-06-08] MEDS: Albuterol 200 PUFF (6.7GM INHALER) INH SCH ×4 (01:27→18:19)
[2020-06-08] MEDS ORDERED: Furosemide 40 MG/4 ML VIAL SLOW IVP SCH (01:30)
[2020-06-08] MEDS: Lorazepam 2 MG/ML VIAL SLOW IVP PRN ×2 (02:05→22:34)
[2020-06-08] MEDS: GUAIFENESIN SF SOLN 200 MG/10 ML UDCUP PO SCH ×4 (02:52→17:39)
[2020-06-08] MEDS: Propofol 1,000 MG/100 ML VIAL IV PRN ×6 (03:34→23:43)
[2020-06-08 04:59] LABS: #Lymphocytes 0.4 thou/uL (1.20-3.40); #Monocytes 0.4 thou/uL (0.11-0.59); #Neutrophils 13.1 thou/uL (1.40-6.50); %Basophils 0.2 % (0.0-1.0); %Eosinophils 0.1 % (0.0-10.0); %Lymphocytes 3.1 % (21.0-51.0); %Neutrophils 93.6 % (42.0-75.0); Hemoglobin 10.7 g/dL (14.0-18.0); Mean Corpuscular HGB CONC 31.8 g/dL (32.0-36.0); Mean Corpuscular Hemoglobin 29.8 pg (27.0-31.0); Mean Corpuscular Volume 93.7 fL (78.0-98.0); Mean Platelet Volume 9.1 fL (7.4-10.4); Platelet Count 254 thou/uL (130-400); RBC Distribution Width 13.3 % (11.5-14.5)
[2020-06-08 05:08] LABS: Magnesium 2.1 mg/dL (1.6-2.6); Phosphorus 4.2 mg/dL (2.3-4.7)
[2020-06-08 05:09] LABS: Anion Gap 17 mmol/L (10-20); BUN (Urea Nitrogen) 47 mg/dL (8.4-25.7); Calc. Creatinine Clearance 57 mL/min (70-130); Calcium 8.7 mg/dL (7.8-10.44); Carbon Dioxide 26 mmol/L (23-31); Chloride 100 mmol/L (98-107); Glucose 289 mg/dL (80-115); Potassium 3.3 mmol/L (3.5-5.1); Sodium 140 mmol/L (136-145)
[2020-06-08] MEDS ORDERED: Potassium Chloride 20 MEQ TAB PER TUBE SCH (05:30)
[2020-06-08] MEDS ORDERED: Albumin 25% 25 GM/100 ML BOT IVPB SCH (07:01)
[2020-06-08] MEDS: Mometasone 200 MCG/Formoterol 5 MCG 120 PUFF INHALER INH SCH ×2 (07:24→18:23)
[2020-06-08] MEDS: Dexamethasone 4 mg/ml Vial SLOW IVP SCH ×2 (09:09→20:15)
[2020-06-08] MEDS: Enoxaparin Sodium 60 MG/0.6 ML SYRINGE SC SCH ×2 (09:09→20:16)
[2020-06-08] MEDS: Colchicine 0.6 MG TAB PO SCH ×2 (09:10→20:15)
[2020-06-08] MEDS: Famotidine 20 MG TAB PO SCH ×2 (09:10→20:15)
[2020-06-08] MEDS: Cefepime 1 GM in Sodium Chloride 0.9% 100 ML IVPB SCH ×2 (09:10→20:14)
[2020-06-08] MEDS: Aspirin Chewable 81 MG TAB PO SCH (09:10)
[2020-06-08] MEDS: Amlodipine 5 MG TAB PO SCH (09:12)
[2020-06-08] MEDS: Metoprolol Tartrate 25 MG TAB PO SCH ×2 (09:12→20:15)
[2020-06-08] MEDS: NPH, Human Insulin Isophane 300 UNIT/3 ML VIAL SC SCH ×2 (10:05→22:17)
[2020-06-08] MEDS ORDERED: Fentanyl CADD 100 ML ONE (12:38)
[2020-06-08] MEDS: HumaLOG 300 UNITS/3 ML VIAL SC PRN (16:39)
[2020-06-08] MEDS ORDERED: Vecuronium 10 MG VIAL ONE (21:30)
[2020-06-08] MEDS ORDERED: Bacteriostatic Normal Saline 30 ML VIAL ONE (21:30)
[2020-06-08] MEDS ORDERED: Amlodipine 5 MG TAB PO SCH (22:56)
[2020-06-09] MEDS: Albuterol 200 PUFF (6.7GM INHALER) INH SCH ×4 (00:13→18:33)
[2020-06-09] MEDS ORDERED: Fentanyl CADD 100 ML ONE ×2 (01:43→13:32)
[2020-06-09] MEDS: Propofol 1,000 MG/100 ML VIAL IV PRN ×5 (04:01→20:56)
[2020-06-09 05:08] LABS: #Lymphocytes 0.3 thou/uL (1.20-3.40); #Monocytes 0.3 thou/uL (0.11-0.59); #Neutrophils 7.6 thou/uL (1.40-6.50); %Basophils 0.1 % (0.0-1.0); %Eosinophils 0.1 % (0.0-10.0); %Lymphocytes 3.1 % (21.0-51.0); %Monocytes 3.4 % (0.0-10.0); %Neutrophils 93.3 % (42.0-75.0); Hemoglobin 9.2 g/dL (14.0-18.0); Mean Corpuscular HGB CONC 32.5 g/dL (32.0-36.0); Mean Corpuscular Hemoglobin 30.5 pg (27.0-31.0); Mean Corpuscular Volume 93.7 fL (78.0-98.0); Mean Platelet Volume 9.2 fL (7.4-10.4); Platelet Count 247 thou/uL (130-400); RBC Distribution Width 13.6 % (11.5-14.5); Red Blood Cell (RBC) Count 3.03 mill/uL (4.70-6.10); White Blood Cell (WBC) Count 8.1 thou/uL (4.8-10.8)
[2020-06-09 05:22] LABS: Anion Gap 14 mmol/L (10-20); BUN (Urea Nitrogen) 47 mg/dL (8.4-25.7); Calc. Creatinine Clearance 57 mL/min (70-130); Calcium 8.5 mg/dL (7.8-10.44); Carbon Dioxide 29 mmol/L (23-31); Chloride 104 mmol/L (98-107); Glucose 217 mg/dL (80-115); Potassium 3.6 mmol/L (3.5-5.1); Sodium 143 mmol/L (136-145)
[2020-06-09] MEDS: Mometasone 200 MCG/Formoterol 5 MCG 120 PUFF INHALER INH SCH ×2 (08:21→18:33)
[2020-06-09] MEDS: Enoxaparin Sodium 60 MG/0.6 ML SYRINGE SC SCH ×2 (08:55→20:57)
[2020-06-09] MEDS: Cefepime 1 GM in Sodium Chloride 0.9% 100 ML IVPB SCH ×2 (08:55→20:57)
[2020-06-09] MEDS: Aspirin Chewable 81 MG TAB PO SCH (08:55)
[2020-06-09] MEDS: Metoprolol Tartrate 25 MG TAB PO SCH ×2 (08:56→20:57)
[2020-06-09] MEDS: Colchicine 0.6 MG TAB PO SCH (08:56)
[2020-06-09] MEDS: Dexamethasone 4 mg/ml Vial SLOW IVP SCH ×2 (08:56→20:57)
[2020-06-09] MEDS: Amlodipine 5 MG TAB PO SCH (08:56)
[2020-06-09] MEDS: NPH, Human Insulin Isophane 300 UNIT/3 ML VIAL SC SCH ×2 (08:57→22:05)
[2020-06-09] MEDS: Famotidine 20 MG TAB PO SCH ×2 (08:57→20:57)
[2020-06-09] MEDS: Vecuronium 10 MG VIAL IV PRN (11:12)
[2020-06-09] MEDS: Lorazepam 2 MG/ML VIAL SLOW IVP PRN ×2 (11:12→19:25)
[2020-06-09] MEDS ORDERED: Amlodipine 5 MG TAB PO SCH (15:45)
[2020-06-09] MEDS: HumaLOG 300 UNITS/3 ML VIAL SC PRN (17:19)
[2020-06-10] MEDS: Albuterol 200 PUFF (6.7GM INHALER) INH SCH ×4 (00:20→18:40)
[2020-06-10] MEDS: Propofol 1,000 MG/100 ML VIAL IV PRN ×6 (00:59→21:22)
[2020-06-10] MEDS ORDERED: Fentanyl CADD 100 ML ONE ×2 (02:42→15:50)
[2020-06-10 04:00] LABS: #Lymphocytes 0.2 thou/uL (1.20-3.40); #Monocytes 0.1 thou/uL (0.11-0.59); #Neutrophils 7.8 thou/uL (1.40-6.50); %Eosinophils 0.2 % (0.0-10.0); %Lymphocytes 2.3 % (21.0-51.0); %Neutrophils 96.5 % (42.0-75.0); Hemoglobin 9.2 g/dL (14.0-18.0); Mean Corpuscular HGB CONC 33.4 g/dL (32.0-36.0); Mean Corpuscular Hemoglobin 31.9 pg (27.0-31.0); Mean Corpuscular Volume 95.3 fL (78.0-98.0); Platelet Count 251 thou/uL (130-400); RBC Distribution Width 13.4 % (11.5-14.5)
[2020-06-10 04:34] LABS: Albumin 2.4 g/dL (3.4-4.8); Anion Gap 14 mmol/L (10-20); BUN (Urea Nitrogen) 47 mg/dL (8.4-25.7); BUN/Creatinine Ratio 32.87; Calc. Creatinine Clearance 58 mL/min (70-130); Calcium 8.5 mg/dL (7.8-10.44); Carbon Dioxide 28 mmol/L (23-31); Chloride 103 mmol/L (98-107); Glucose 281 mg/dL (80-115); Phosphorus 3.6 mg/dL (2.3-4.7); Sodium 141 mmol/L (136-145)
[2020-06-10] MEDS: Mometasone 200 MCG/Formoterol 5 MCG 120 PUFF INHALER INH SCH ×2 (07:48→18:40)
[2020-06-10] MEDS: Amlodipine 10 MG TAB PO SCH (09:33)
[2020-06-10] MEDS: Metoprolol Tartrate 25 MG TAB PO SCH ×2 (09:33→20:47)
[2020-06-10] MEDS: Famotidine 20 MG TAB PO SCH ×2 (09:33→20:46)
[2020-06-10] MEDS: Dexamethasone 4 mg/ml Vial SLOW IVP SCH ×2 (09:33→20:46)
[2020-06-10] MEDS: Aspirin Chewable 81 MG TAB PO SCH (09:33)
[2020-06-10] MEDS: Cefepime 1 GM in Sodium Chloride 0.9% 100 ML IVPB SCH ×2 (09:34→20:46)
[2020-06-10] MEDS: Enoxaparin Sodium 60 MG/0.6 ML SYRINGE SC SCH ×2 (09:34→20:46)
[2020-06-10] MEDS: NPH, Human Insulin Isophane 300 UNIT/3 ML VIAL SC SCH ×2 (09:34→21:58)
[2020-06-10] MEDS: Lorazepam 2 MG/ML VIAL SLOW IVP PRN ×3 (10:59→20:45)
[2020-06-10] MEDS: HumaLOG 300 UNITS/3 ML VIAL SC PRN (16:31)
[2020-06-11] MEDS: Albuterol 200 PUFF (6.7GM INHALER) INH SCH ×4 (00:33→18:15)
[2020-06-11] MEDS: Propofol 1,000 MG/100 ML VIAL IV PRN ×6 (00:53→23:23)
[2020-06-11 03:50] LABS: #Lymphocytes 0.2 thou/uL (1.20-3.40); #Monocytes 0.3 thou/uL (0.11-0.59); #Neutrophils 9.2 thou/uL (1.40-6.50); %Eosinophils 0.2 % (0.0-10.0); %Lymphocytes 2.4 % (21.0-51.0); %Monocytes 3.3 % (0.0-10.0); %Neutrophils 94.1 % (42.0-75.0); Hemoglobin 10.1 g/dL (14.0-18.0); Mean Corpuscular HGB CONC 32.4 g/dL (32.0-36.0); Mean Corpuscular Hemoglobin 30.4 pg (27.0-31.0); Mean Corpuscular Volume 93.8 fL (78.0-98.0); Mean Platelet Volume 9.1 fL (7.4-10.4); Platelet Count 297 thou/uL (130-400); RBC Distribution Width 13.5 % (11.5-14.5); Red Blood Cell (RBC) Count 3.32 mill/uL (4.70-6.10); White Blood Cell (WBC) Count 9.8 thou/uL (4.8-10.8)
[2020-06-11] MEDS: Lorazepam 2 MG/ML VIAL SLOW IVP PRN ×3 (04:05→13:28)
[2020-06-11 04:12] LABS: Albumin 2.5 g/dL (3.4-4.8); Anion Gap 13 mmol/L (10-20); BUN (Urea Nitrogen) 44 mg/dL (8.4-25.7); BUN/Creatinine Ratio 36.07; Calc. Creatinine Clearance 65 mL/min (70-130); Carbon Dioxide 27 mmol/L (23-31); Chloride 106 mmol/L (98-107); Glucose 136 mg/dL (80-115); Phosphorus 3.7 mg/dL (2.3-4.7); Potassium 3.7 mmol/L (3.5-5.1); Sodium 142 mmol/L (136-145)
[2020-06-11] MEDS: hydrALAZINE 20 MG/ML VIAL SLOW IVP PRN (05:22)
[2020-06-11] MEDS ORDERED: hydrALAZINE 25 MG TAB PO SCH (06:00)
[2020-06-11] MEDS ORDERED: Bacteriostatic Normal Saline 30 ML VIAL ONE (06:04)
[2020-06-11] MEDS ORDERED: Vecuronium 10 MG VIAL ONE (06:04)
[2020-06-11] MEDS: Vecuronium 10 MG VIAL IV PRN ×2 (06:05→21:36)
[2020-06-11] MEDS ORDERED: Labetalol HCl 100 MG/20 ML VIAL SLOW IVP SCH (06:45)
[2020-06-11] MEDS: Mometasone 200 MCG/Formoterol 5 MCG 120 PUFF INHALER INH SCH ×2 (08:04→18:16)
[2020-06-11] MEDS: Enoxaparin Sodium 60 MG/0.6 ML SYRINGE SC SCH ×2 (08:09→21:37)
[2020-06-11] MEDS: Cefepime 1 GM in Sodium Chloride 0.9% 100 ML IVPB SCH ×2 (08:09→21:36)
[2020-06-11] MEDS: Famotidine 20 MG TAB PO SCH ×2 (08:10→21:37)
[2020-06-11] MEDS: Amlodipine 10 MG TAB PO SCH (08:10)
[2020-06-11] MEDS: Aspirin Chewable 81 MG TAB PO SCH (08:11)
[2020-06-11] MEDS: Metoprolol Tartrate 25 MG TAB PO SCH ×2 (08:11→21:37)
[2020-06-11] MEDS: Dexamethasone 4 mg/ml Vial SLOW IVP SCH ×3 (08:11→21:38)
[2020-06-11] MEDS: NPH, Human Insulin Isophane 300 UNIT/3 ML VIAL SC SCH ×3 (08:12→21:50)
[2020-06-11] MEDS ORDERED: Fentanyl CADD 100 ML ONE ×2 (09:25→23:56)
[2020-06-11] MEDS: Fentanyl CADD 100 ML IV SCH (09:26)
[2020-06-11] MEDS: Dextrose 50% Abboject 50 ML SYRINGE SLOW IVP PRN ×2 (12:06→15:06)
[2020-06-11] MEDS: hydrALAZINE 25 MG TAB PO SCH (21:37)
[2020-06-12] MEDS: Lorazepam 2 MG/ML VIAL SLOW IVP PRN ×5 (00:29→22:19)
[2020-06-12 07:24] LABS: Albumin 2.6 g/dL (3.4-4.8); Anion Gap 14 mmol/L (10-20); BUN (Urea Nitrogen) 46 mg/dL (8.4-25.7); BUN/Creatinine Ratio 32.86; Calc. Creatinine Clearance 57 mL/min (70-130); Calcium 9.1 mg/dL (7.8-10.44); Carbon Dioxide 26 mmol/L (23-31); Chloride 104 mmol/L (98-107); Glucose 206 mg/dL (80-115); Phosphorus 5.7 mg/dL (2.3-4.7); Potassium 4.2 mmol/L (3.5-5.1); Sodium 140 mmol/L (136-145)
[2020-06-12 08:38] LABS: Hemoglobin 11.1 g/dL (14.0-18.0); Mean Corpuscular HGB CONC 31.8 g/dL (32.0-36.0); Mean Corpuscular Hemoglobin 30.4 pg (27.0-31.0); Mean Corpuscular Volume 95.7 fL (78.0-98.0); Platelet Count 362 thou/uL (130-400); RBC Distribution Width 13.9 % (11.5-14.5); Red Blood Cell (RBC) Count 3.66 mill/uL (4.70-6.10); White Blood Cell (WBC) Count 12.2 thou/uL (4.8-10.8)
[2020-06-12] MEDS: Albuterol 200 PUFF (6.7GM INHALER) INH SCH ×5 (08:46→23:18)
[2020-06-12] MEDS: Mometasone 200 MCG/Formoterol 5 MCG 120 PUFF INHALER INH SCH ×2 (08:47→19:06)
[2020-06-12 09:17] LABS: Band 38 % (5-11); Lymphocytes 3 % (21-51); MDiff Complete? YES; Metamyelocyte 1 % (0-0); Monocytes 4 % (0-10); Neutrophil 54 % (42-75); Polychromasia SLIGHT = 2-3 cells (100X) (0-2/hpf)
[2020-06-12] MEDS: Cefepime 1 GM in Sodium Chloride 0.9% 100 ML IVPB SCH ×2 (09:48→20:05)
[2020-06-12] MEDS: Aspirin Chewable 81 MG TAB PO SCH (09:49)
[2020-06-12] MEDS: Enoxaparin Sodium 60 MG/0.6 ML SYRINGE SC SCH ×2 (09:49→20:22)
[2020-06-12] MEDS: hydrALAZINE 25 MG TAB PO SCH ×3 (09:50→20:22)
[2020-06-12] MEDS: Famotidine 20 MG TAB PO SCH ×2 (09:50→20:21)
[2020-06-12] MEDS: Dexamethasone 4 mg/ml Vial SLOW IVP SCH ×2 (09:51→20:14)
[2020-06-12] MEDS: Amlodipine 10 MG TAB PO SCH (09:53)
[2020-06-12] MEDS: Metoprolol Tartrate 25 MG TAB PO SCH (09:53)
[2020-06-12] MEDS ORDERED: Fentanyl CADD 100 ML ONE ×2 (11:43→19:18)
[2020-06-12] MEDS: Fentanyl CADD 100 ML IV SCH (11:54)
[2020-06-12] MEDS: Propofol 1,000 MG/100 ML VIAL IV PRN ×2 (11:54→15:49)
[2020-06-12] MEDS: NPH, Human Insulin Isophane 300 UNIT/3 ML VIAL SC SCH ×2 (12:47→21:28)
[2020-06-12] MEDS: Albumin 25% 25 GM/100 ML BOT IVPB SCH ×2 (16:55→21:35)
[2020-06-12] MEDS ORDERED: Furosemide 40 MG/4 ML VIAL SLOW IVP SCH (19:00)
[2020-06-12] MEDS: Metoprolol Tartrate 50 MG TAB PO SCH (20:21)
[2020-06-13 04:34] LABS: Hemoglobin 9.5 g/dL (14.0-18.0); Mean Corpuscular Hemoglobin 31.3 pg (27.0-31.0); Platelet Count 283 thou/uL (130-400); RBC Distribution Width 14.1 % (11.5-14.5); Red Blood Cell (RBC) Count 3.03 mill/uL (4.70-6.10)
[2020-06-13 04:36] LABS: Magnesium 2.2 mg/dL (1.6-2.6); Phosphorus 6.3 mg/dL (2.3-4.7)
[2020-06-13 05:35] LABS: Band 52 % (5-11); Lymphocytes 5 % (21-51); MDiff Complete? YES; Monocytes 1 % (0-10); Myelocyte 1 % (0-0); Neutrophil 41 % (42-75)
[2020-06-13] MEDS: Propofol 1,000 MG/100 ML VIAL IV PRN ×5 (07:12→21:25)
[2020-06-13] MEDS ORDERED: Fentanyl CADD 100 ML ONE ×2 (08:27→20:05)
[2020-06-13] MEDS: Albuterol 200 PUFF (6.7GM INHALER) INH SCH ×4 (08:32→23:52)
[2020-06-13] MEDS: Mometasone 200 MCG/Formoterol 5 MCG 120 PUFF INHALER INH SCH ×2 (08:32→19:05)
[2020-06-13] MEDS: Dexamethasone 4 mg/ml Vial SLOW IVP SCH ×2 (10:08→22:01)
[2020-06-13] MEDS: hydrALAZINE 25 MG TAB PO SCH ×3 (10:09→22:24)
[2020-06-13] MEDS: Famotidine 20 MG TAB PO SCH ×2 (10:09→22:00)
[2020-06-13] MEDS: Aspirin Chewable 81 MG TAB PO SCH (10:09)
[2020-06-13] MEDS: Metoprolol Tartrate 50 MG TAB PO SCH ×2 (10:09→22:04)
[2020-06-13] MEDS: Amlodipine 10 MG TAB PO SCH (10:09)
[2020-06-13] MEDS: Enoxaparin Sodium 60 MG/0.6 ML SYRINGE SC SCH ×2 (10:09→22:03)
[2020-06-13] MEDS: MEROPENEM 1 GM/50 ML 1 GM in Premix Bag 1 BAG IVPB SCH ×2 (10:11→17:54)
[2020-06-13 10:21] LABS: Anion Gap 18 mmol/L (10-20); BUN (Urea Nitrogen) 58 mg/dL (8.4-25.7); Calc. Creatinine Clearance 43 mL/min (70-130); Calcium 9.6 mg/dL (7.8-10.44); Carbon Dioxide 25 mmol/L (23-31); Chloride 106 mmol/L (98-107); Glucose 134 mg/dL (80-115); Potassium 4.8 mmol/L (3.5-5.1); Sodium 144 mmol/L (136-145)
[2020-06-13] MEDS: NPH, Human Insulin Isophane 300 UNIT/3 ML VIAL SC SCH ×2 (11:35→22:41)
[2020-06-13] MEDS: Dextrose 50% Abboject 50 ML SYRINGE SLOW IVP PRN (11:35)
[2020-06-13] MEDS ORDERED: Sodium Bicarbonate Tab 325 MG TAB PER TUBE PRN (12:00)
[2020-06-13] MEDS ORDERED: Pancrelipase DR 12,000 1 CAP FS PRN (12:00)
[2020-06-13] MEDS: Metoclopramide HCl 10 MG/2 ML VIAL IVP SCH ×2 (13:20→22:01)
[2020-06-13 13:57] LABS: Bacteria/HPF None Seen HPF (None Seen); Bilirubin Negative (Negative); Blood, Urine Trace (Negative); Clarity Turbid (Clear); Glucose, Urine (Dipstick) Normal (Negative); Ketone, Urine Negative (Negative); Leukocyte Negative Leu/uL (Negative); Nitrite Negative (Negative); Protein, Urine (Dipstick) 50 mg/dL (Neg-Trace); Specific Gravity, Urine 1.015 (1.002-1.036); Squamous Epithelial None Seen HPF (0-3); Urobilinogen Normal mg/dL (Less than 2); WBC/HPF 0-3 HPF (0-3); pH, Urine 5.5 (5.0-9.0)
[2020-06-13 14:00] LABS: Urine Culture Reflex No No
[2020-06-13 14:12] LABS: Creatinine, Urine 43.85 mg/dL (63-166)
[2020-06-13 14:35] LABS: Actual Bicarbonate (HCO3a) 27.5 mEq/L (22-28); Base Excess (BEa) 0.6 mEq/L (-2.0 to +3.0); CO2 Tension 55.2 mmHg (35.0-45.0); Calcium, Ionized (arterial) 1.26 mmol/L (1.12-1.30); Carboxyhemoglobin (COHb) 0.3 gm% (0.0-3.0); Hemoglobin (Hb) 11.3 g/dL (14.0-18.0); Potassium - ABG Lab 4.65 mmol/L (3.70-5.30); pH, Arterial 7.32 (7.35-7.45)
[2020-06-13 14:40] LABS: Puncture Site RRA
[2020-06-13] MEDS: Lorazepam 2 MG/ML VIAL SLOW IVP PRN (22:21)
[2020-06-14] MEDS: Propofol 1,000 MG/100 ML VIAL IV PRN ×6 (00:49→20:15)
[2020-06-14] MEDS: MEROPENEM 1 GM/50 ML 1 GM in Premix Bag 1 BAG IVPB SCH ×3 (03:23→20:16)
[2020-06-14] MEDS: Metoclopramide HCl 10 MG/2 ML VIAL IVP SCH ×3 (03:25→20:16)
[2020-06-14 04:06] LABS: #Lymphocytes 0.2 thou/uL (1.20-3.40); #Monocytes 0.2 thou/uL (0.11-0.59); #Neutrophils 5.7 thou/uL (1.40-6.50); %Lymphocytes 3.1 % (21.0-51.0); %Monocytes 3.2 % (0.0-10.0); %Neutrophils 93.7 % (42.0-75.0); Hemoglobin 9.2 g/dL (14.0-18.0); Mean Corpuscular HGB CONC 32.2 g/dL (32.0-36.0); Mean Corpuscular Hemoglobin 30.6 pg (27.0-31.0); Mean Corpuscular Volume 94.8 fL (78.0-98.0); Mean Platelet Volume 8.6 fL (7.4-10.4); Platelet Count 317 thou/uL (130-400); RBC Distribution Width 14.1 % (11.5-14.5); Red Blood Cell (RBC) Count 3.02 mill/uL (4.70-6.10); White Blood Cell (WBC) Count 6.1 thou/uL (4.8-10.8)
[2020-06-14 04:26] LABS: Anion Gap 15 mmol/L (10-20); BUN (Urea Nitrogen) 79 mg/dL (8.4-25.7); Calc. Creatinine Clearance 30 mL/min (70-130); Calcium 9.2 mg/dL (7.8-10.44); Carbon Dioxide 25 mmol/L (23-31); Chloride 108 mmol/L (98-107); Glucose 209 mg/dL (80-115); Potassium 4.3 mmol/L (3.5-5.1); Sodium 144 mmol/L (136-145)
[2020-06-14] MEDS: HumaLOG 300 UNITS/3 ML VIAL SC PRN (05:33)
[2020-06-14] MEDS: Albuterol 200 PUFF (6.7GM INHALER) INH SCH ×3 (06:41→18:29)
[2020-06-14] MEDS: Mometasone 200 MCG/Formoterol 5 MCG 120 PUFF INHALER INH SCH ×2 (06:42→18:29)
[2020-06-14] MEDS: Enoxaparin Sodium 60 MG/0.6 ML SYRINGE SC SCH ×2 (08:05→20:16)
[2020-06-14] MEDS: Dexamethasone 4 mg/ml Vial SLOW IVP SCH ×2 (08:07→20:17)
[2020-06-14] MEDS: hydrALAZINE 25 MG TAB PO SCH ×3 (08:07→21:08)
[2020-06-14] MEDS: Aspirin Chewable 81 MG TAB PO SCH (08:07)
[2020-06-14] MEDS: Metoprolol Tartrate 50 MG TAB PO SCH ×2 (08:07→21:09)
[2020-06-14] MEDS: Amlodipine 10 MG TAB PO SCH (08:08)
[2020-06-14] MEDS: Famotidine 20 MG TAB PO SCH ×2 (08:08→20:17)
[2020-06-14] MEDS ORDERED: Dextrose 5 %-0.45 % NaCl 1,000 ML IV SCH (08:15)
[2020-06-14] MEDS: NPH, Human Insulin Isophane 300 UNIT/3 ML VIAL SC SCH ×2 (09:17→20:36)
[2020-06-14] MEDS ORDERED: Vancomycin 1 GM in Premix Bag 1 BAG IVPB SCH (10:45)
[2020-06-14] MEDS: Sodium Chloride 0.9% 1,000 ML IV SCH ×2 (11:09→23:22)
[2020-06-14 11:46] LABS: ALT (SGPT) 14 U/L (8-55); AST (SGOT) 21 U/L (5-34); Albumin 2.6 g/dL (3.4-4.8); Alkaline Phosphatase 89 U/L (40-110); Bilirubin, Direct 0.3 mg/dL (0.1-0.3); Bilirubin, Total 0.4 mg/dL (0.2-1.2); Protein, Total 6.1 g/dL (5.8-8.1)
[2020-06-14] MEDS: Vancomycin HCl 750 MG in Sodium Chloride 0.9% 250 ML 250 ML IVPB SCH (12:01)
[2020-06-14] MEDS ORDERED: Fentanyl CADD 100 ML ONE (12:53)
[2020-06-14] MEDS ORDERED: Lorazepam 2 MG/ML VIAL ONE (23:10)
[2020-06-14] MEDS ORDERED: Lorazepam 2 MG/ML VIAL SLOW IVP PRN (23:17)
[2020-06-15] MEDS: Propofol 1,000 MG/100 ML VIAL IV PRN ×7 (00:16→23:50)
[2020-06-15] MEDS: Albuterol 200 PUFF (6.7GM INHALER) INH SCH ×4 (00:18→18:28)
[2020-06-15] MEDS ORDERED: Fentanyl CADD 100 ML ONE ×2 (00:52→13:34)
[2020-06-15] MEDS ORDERED: Fentanyl BOLUS 250 ML IVPB PRN (01:15)
[2020-06-15] MEDS ORDERED: DISCONTINUE PREVIOUS NARCOTIC PAIN MEDICATIONS AND BENZODIAZEPINES FS SCH (01:15)
[2020-06-15] MEDS ORDERED: Propofol BOLUS 1,000 MG/100 ML VIAL IV PRN (01:15)
[2020-06-15] MEDS ORDERED: Morphine 2 MG/ML VIAL SLOW IVP PRN (01:15)
[2020-06-15] MEDS: Metoclopramide HCl 10 MG/2 ML VIAL IVP SCH ×3 (03:53→20:26)
[2020-06-15 04:17] LABS: #Lymphocytes 0.4 thou/uL (1.20-3.40); #Monocytes 0.2 thou/uL (0.11-0.59); #Neutrophils 6.4 thou/uL (1.40-6.50); %Eosinophils 0.3 % (0.0-10.0); %Neutrophils 90.7 % (42.0-75.0); Hemoglobin 9.2 g/dL (14.0-18.0); Mean Corpuscular Hemoglobin 31.4 pg (27.0-31.0); Mean Corpuscular Volume 95.2 fL (78.0-98.0); Mean Platelet Volume 8.5 fL (7.4-10.4); Platelet Count 362 thou/uL (130-400); RBC Distribution Width 14.2 % (11.5-14.5); Red Blood Cell (RBC) Count 2.94 mill/uL (4.70-6.10)
[2020-06-15 04:31] LABS: Anion Gap 18 mmol/L (10-20); BUN (Urea Nitrogen) 103 mg/dL (8.4-25.7); Calc. Creatinine Clearance 25 mL/min (70-130); Calcium 9.4 mg/dL (7.8-10.44); Carbon Dioxide 22 mmol/L (23-31); Chloride 109 mmol/L (98-107); Glucose 101 mg/dL (80-115); Potassium 4.1 mmol/L (3.5-5.1); Sodium 145 mmol/L (136-145)
[2020-06-15] MEDS ORDERED: Sodium Bicarbonate 150 MEQ in Dextrose 5% in Water 1,000 ML IV SCH (07:00)
[2020-06-15] MEDS: Mometasone 200 MCG/Formoterol 5 MCG 120 PUFF INHALER INH SCH ×2 (07:03→18:28)
[2020-06-15] MEDS: MEROPENEM 1 GM/50 ML 1 GM in Premix Bag 1 BAG IVPB SCH ×2 (08:15→20:23)
[2020-06-15] MEDS: Enoxaparin Sodium 60 MG/0.6 ML SYRINGE SC SCH (08:18)
[2020-06-15] MEDS: Dexamethasone 4 mg/ml Vial SLOW IVP SCH ×2 (08:19→20:26)
[2020-06-15] MEDS: Aspirin Chewable 81 MG TAB PO SCH (08:19)
[2020-06-15] MEDS: Amlodipine 10 MG TAB PO SCH (08:20)
[2020-06-15] MEDS: Metoprolol Tartrate 50 MG TAB PO SCH ×2 (08:21→20:26)
[2020-06-15 08:36] LABS: Albumin 2.5 g/dL (3.4-4.8)
[2020-06-15 08:44] LABS: Complement-C4 41.1 mg/dL (15-53)
[2020-06-15] MEDS: Vecuronium 10 MG VIAL IV PRN ×2 (10:01→18:35)
[2020-06-15] MEDS: NPH, Human Insulin Isophane 300 UNIT/3 ML VIAL SC SCH ×2 (10:57→22:09)
[2020-06-15] MEDS: Vancomycin HCl 750 MG in Sodium Chloride 0.9% 250 ML 250 ML IVPB SCH (12:04)
[2020-06-15] MEDS: HumaLOG 300 UNITS/3 ML VIAL SC PRN (17:24)
[2020-06-15 19:18] LABS: Albumin 2.6 g/dL (3.4-4.8); Anion Gap 18 mmol/L (10-20); BUN (Urea Nitrogen) 109 mg/dL (8.4-25.7); BUN/Creatinine Ratio 30.45; Calc. Creatinine Clearance 22 mL/min (70-130); Calcium 9.6 mg/dL (7.8-10.44); Carbon Dioxide 26 mmol/L (23-31); Chloride 103 mmol/L (98-107); Glucose 211 mg/dL (80-115); Phosphorus 6.8 mg/dL (2.3-4.7); Potassium 4.5 mmol/L (3.5-5.1); Sodium 142 mmol/L (136-145)
[2020-06-15] MEDS: Famotidine 20 MG TAB PO SCH (20:25)
[2020-06-16] MEDS: Lorazepam 2 MG/ML VIAL SLOW IVP PRN (01:43)
[2020-06-16] MEDS: Vecuronium 10 MG VIAL IV PRN ×2 (01:44→11:56)
[2020-06-16] MEDS: Albuterol 200 PUFF (6.7GM INHALER) INH SCH ×5 (01:44→22:45)
[2020-06-16] MEDS ORDERED: Fentanyl CADD 100 ML ONE ×2 (02:00→15:04)
[2020-06-16] MEDS: Fentanyl CADD 100 ML IV SCH (02:09)
[2020-06-16] MEDS: Metoclopramide HCl 10 MG/2 ML VIAL IVP SCH ×2 (03:21→11:21)
[2020-06-16] MEDS: Propofol 1,000 MG/100 ML VIAL IV PRN ×5 (03:36→21:00)
[2020-06-16 04:14] LABS: #Lymphocytes 0.4 thou/uL (1.20-3.40); #Monocytes 0.4 thou/uL (0.11-0.59); #Neutrophils 7.3 thou/uL (1.40-6.50); %Basophils 0.2 % (0.0-1.0); %Eosinophils 0.2 % (0.0-10.0); %Lymphocytes 4.8 % (21.0-51.0); %Monocytes 5.3 % (0.0-10.0); %Neutrophils 89.5 % (42.0-75.0); Hemoglobin 9.5 g/dL (14.0-18.0); Mean Corpuscular HGB CONC 30.3 g/dL (32.0-36.0); Mean Corpuscular Hemoglobin 28.4 pg (27.0-31.0); Mean Corpuscular Volume 93.7 fL (78.0-98.0); Mean Platelet Volume 8.5 fL (7.4-10.4); Platelet Count 420 thou/uL (130-400); RBC Distribution Width 14.6 % (11.5-14.5); Red Blood Cell (RBC) Count 3.34 mill/uL (4.70-6.10); White Blood Cell (WBC) Count 8.1 thou/uL (4.8-10.8)
[2020-06-16 04:36] LABS: Anion Gap 20 mmol/L (10-20); BUN (Urea Nitrogen) 118 mg/dL (8.4-25.7); Calc. Creatinine Clearance 22 mL/min (70-130); Calcium 9.3 mg/dL (7.8-10.44); Carbon Dioxide 23 mmol/L (23-31); Chloride 104 mmol/L (98-107); Glucose 214 mg/dL (80-115); Potassium 4.8 mmol/L (3.5-5.1); Sodium 142 mmol/L (136-145)
[2020-06-16] MEDS: Albumin 25% 25 GM/100 ML BOT IVPB SCH ×3 (04:59→16:55)
[2020-06-16] MEDS: HumaLOG 300 UNITS/3 ML VIAL SC PRN ×2 (04:59→16:57)
[2020-06-16] MEDS: Mometasone 200 MCG/Formoterol 5 MCG 120 PUFF INHALER INH SCH ×2 (06:49→18:43)
[2020-06-16] MEDS: MEROPENEM 1 GM/50 ML 1 GM in Premix Bag 1 BAG IVPB SCH ×2 (09:10→21:34)
[2020-06-16] MEDS: Dexamethasone 4 mg/ml Vial SLOW IVP SCH ×2 (09:11→21:37)
[2020-06-16] MEDS: Enoxaparin Sodium 60 MG/0.6 ML SYRINGE SC SCH (09:11)
[2020-06-16] MEDS: Amlodipine 10 MG TAB PO SCH (09:12)
[2020-06-16] MEDS: Aspirin Chewable 81 MG TAB PO SCH (09:12)
[2020-06-16] MEDS: NPH, Human Insulin Isophane 300 UNIT/3 ML VIAL SC SCH ×2 (09:13→22:31)
[2020-06-16] MEDS: Metoprolol Tartrate 50 MG TAB PO SCH ×2 (09:14→22:10)
[2020-06-16 09:31] LABS: HBSAB Concentration Less than 8.00 mIU/mL; HBSAg Index 0.14 S/CO (0-0.99); Hep B Surf AB Non-Reactive (NonReactive); Hep B Surf Ag Non-Reactive S/CO (NonReactive); Hep C IgG Ab Non-Reactive (NonReactive); Hep C Index 0.14 S/CO (0-0.79)
[2020-06-16] MEDS ORDERED: Heparin 10,000 UNITS/ 10 ML VIAL ONE (09:49)
[2020-06-16 11:31] LABS: Hep B Core Total Index 4.58 S/CO (0-0.79)
[2020-06-16 11:32] LABS: Hep B Core Total Ab Reactive (NonReactive)
[2020-06-16 11:48] LABS: Vancomycin, Trough 11.5 ug/mL
[2020-06-16] MEDS ORDERED: Vancomycin HCl 750 MG in Sodium Chloride 0.9% 250 ML 250 ML IVPB SCH (12:00)
[2020-06-16] MEDS ORDERED: Vancomycin Sliding Scale 1 EACH FS ONE (12:00)
[2020-06-16] MEDS ORDERED: HOLD VANCOMYCIN FOR LEVEL >20 FS SCH (12:00)
[2020-06-16] MEDS ORDERED: Vancomycin 1 GM in Premix Bag 1 BAG IVPB SCH (12:00)
[2020-06-16] MEDS ORDERED: Vancomycin HCl 500 MG in Sodium Chloride 0.9% 100 ML IVPB SCH (12:00)
[2020-06-16] MEDS ORDERED: VANCOMYCIN 1.25 GM/250 ML BAG 1.25 GM in Premix Bag 1 BAG IVPB SCH (12:00)
[2020-06-16] MEDS: Pantoprazole 40 MG VIAL IVP SCH (21:37)
[2020-06-17] MEDS: Propofol 1,000 MG/100 ML VIAL IV PRN ×6 (01:12→21:55)
[2020-06-17] MEDS: Lorazepam 2 MG/ML VIAL SLOW IVP PRN (03:11)
[2020-06-17] MEDS: Vecuronium 10 MG VIAL IV PRN ×3 (03:11→17:08)
[2020-06-17] MEDS ORDERED: Fentanyl CADD 100 ML ONE ×2 (03:46→16:39)
[2020-06-17] MEDS: Fentanyl CADD 100 ML IV SCH (03:49)
[2020-06-17 04:35] LABS: #Lymphocytes 0.6 thou/uL (1.20-3.40); #Monocytes 0.4 thou/uL (0.11-0.59); #Neutrophils 7.9 thou/uL (1.40-6.50); %Basophils 0.1 % (0.0-1.0); %Eosinophils 0.5 % (0.0-10.0); %Lymphocytes 6.6 % (21.0-51.0); %Monocytes 4.9 % (0.0-10.0); %Neutrophils 87.8 % (42.0-75.0); Hemoglobin 8.8 g/dL (14.0-18.0); Mean Corpuscular Hemoglobin 30.1 pg (27.0-31.0); Mean Corpuscular Volume 94.1 fL (78.0-98.0); Mean Platelet Volume 7.9 fL (7.4-10.4); Platelet Count 370 thou/uL (130-400); RBC Distribution Width 14.9 % (11.5-14.5)
[2020-06-17 04:52] LABS: Anion Gap 20 mmol/L (10-20); BUN (Urea Nitrogen) 97 mg/dL (8.4-25.7); Calc. Creatinine Clearance 23 mL/min (70-130); Calcium 9.2 mg/dL (7.8-10.44); Carbon Dioxide 25 mmol/L (23-31); Chloride 103 mmol/L (98-107); Glucose 89 mg/dL (80-115); Potassium 5.6 mmol/L (3.5-5.1); Sodium 142 mmol/L (136-145)
[2020-06-17] MEDS: Mometasone 200 MCG/Formoterol 5 MCG 120 PUFF INHALER INH SCH ×2 (07:59→18:13)
[2020-06-17] MEDS: Albuterol 200 PUFF (6.7GM INHALER) INH SCH ×3 (07:59→18:13)
[2020-06-17] MEDS ORDERED: Albumin 5% 0 ML ONE (09:00)
[2020-06-17] MEDS: Dextrose 50% Abboject 50 ML SYRINGE SLOW IVP PRN ×2 (09:06→13:25)
[2020-06-17] MEDS ORDERED: Heparin 10,000 UNITS/ 10 ML VIAL ONE (09:42)
[2020-06-17] MEDS ORDERED: Albumin 25% 25 GM/100 ML BOT IVPB SCH (09:45)
[2020-06-17] MEDS ORDERED: Vancomycin 1 GM in Premix Bag 1 BAG IVPB SCH (12:00)
[2020-06-17] MEDS: Meropenem 500 MG in Sodium Chloride 0.9% 100 ML IVPB SCH ×2 (13:25→23:59)
[2020-06-17] MEDS: Pantoprazole 40 MG VIAL IVP SCH ×2 (13:26→21:50)
[2020-06-17] MEDS: Aspirin Chewable 81 MG TAB PO SCH (13:27)
[2020-06-17] MEDS: NPH, Human Insulin Isophane 300 UNIT/3 ML VIAL SC SCH (13:27)
[2020-06-17] MEDS: Dexamethasone 4 mg/ml Vial SLOW IVP SCH ×2 (13:27→21:50)
[2020-06-17] MEDS: Enoxaparin Sodium 60 MG/0.6 ML SYRINGE SC SCH (13:27)
[2020-06-17] MEDS: Metoprolol Tartrate 50 MG TAB PO SCH (13:27)
[2020-06-17] MEDS: Metoclopramide HCl 10 MG/2 ML VIAL IVP SCH ×2 (13:53→21:55)
[2020-06-17 15:59] LABS: Hemoglobin 8.1 g/dL (14.0-18.0)
[2020-06-17 16:07] LABS: Vancomycin, Random 14.4 ug/mL (See Comment)
[2020-06-17] MEDS ORDERED: Sterile Water 10 ML ONE (17:05)
[2020-06-17] MEDS ORDERED: Dextrose 5 % And 0.9 % NaCl 1,000 ML IV SCH (17:30)
[2020-06-17] MEDS ORDERED: Norepinephrine 8 MG/0.9% NS 250 ML IVPB SCH (17:30)
[2020-06-17 18:25] LABS: Hemoglobin 8.2 g/dL (14.0-18.0); Mean Corpuscular HGB CONC 32.4 g/dL (32.0-36.0); Mean Corpuscular Hemoglobin 30.2 pg (27.0-31.0); Mean Platelet Volume 7.6 fL (7.4-10.4); Platelet Count 323 thou/uL (130-400); RBC Distribution Width 14.9 % (11.5-14.5); Red Blood Cell (RBC) Count 2.71 mill/uL (4.70-6.10); White Blood Cell (WBC) Count 11.1 thou/uL (4.8-10.8)
[2020-06-17 18:45] LABS: Band 11 % (5-11); Elliptocytes SLIGHT = 2-5 cells (100X) (0-1/hpf); Hypochromia SLIGHT = 6-15 cells (100X) (0-5/hpf); Lymphocytes 6 % (21-51); MDiff Complete? YES; Metamyelocyte 2 % (0-0); Monocytes 5 % (0-10); Neutrophil 76 % (42-75); Platelet Morphology Comment Appears Adequate; Polychromasia SLIGHT = 2-3 cells (100X) (0-2/hpf); Stomatocytes SLIGHT = 2-5 cells (100X) (0-1/hpf)
[2020-06-17 18:58] LABS: ALT (SGPT) 13 U/L (8-55); AST (SGOT) 26 U/L (5-34); Albumin 3.9 g/dL (3.4-4.8); Alkaline Phosphatase 93 U/L (40-110); Anion Gap 21 mmol/L (10-20); BUN (Urea Nitrogen) 68 mg/dL (8.4-25.7); Bilirubin, Direct 0.2 mg/dL (0.1-0.3); Bilirubin, Total 0.4 mg/dL (0.2-1.2); Calc. Creatinine Clearance 26 mL/min (70-130); Calcium 8.8 mg/dL (7.8-10.44); Carbon Dioxide 23 mmol/L (23-31); Chloride 100 mmol/L (98-107); Glucose 104 mg/dL (80-115); Potassium 5.2 mmol/L (3.5-5.1); Protein, Total 7.1 g/dL (5.8-8.1); Sodium 139 mmol/L (136-145)
[2020-06-17] MEDS: Amlodipine 10 MG TAB PO SCH (19:26)
[2020-06-17] MEDS: MEROPENEM 1 GM/50 ML 1 GM in Premix Bag 1 BAG IVPB SCH (19:26)
[2020-06-17] MEDS: Metoprolol Tartrate 25 MG TAB PO SCH (21:51)
[2020-06-18] MEDS: Albuterol 200 PUFF (6.7GM INHALER) INH SCH ×4 (00:32→18:28)
[2020-06-18] MEDS: Propofol 1,000 MG/100 ML VIAL IV PRN ×4 (02:05→23:11)
[2020-06-18 04:40] LABS: #Lymphocytes 0.2 thou/uL (1.20-3.40); #Monocytes 0.1 thou/uL (0.11-0.59); %Basophils 0.3 % (0.0-1.0); %Eosinophils 0.9 % (0.0-10.0); %Monocytes 2.5 % (0.0-10.0); %Neutrophils 92.3 % (42.0-75.0); Hemoglobin 7.7 g/dL (14.0-18.0); Mean Corpuscular HGB CONC 35.6 g/dL (32.0-36.0); Mean Corpuscular Hemoglobin 33.5 pg (27.0-31.0); Mean Corpuscular Volume 94.1 fL (78.0-98.0); Platelet Count 260 thou/uL (130-400); White Blood Cell (WBC) Count 4.3 thou/uL (4.8-10.8)
[2020-06-18] MEDS ORDERED: Fentanyl CADD 100 ML ONE (04:48)
[2020-06-18] MEDS ORDERED: Sterile Water 10 ML ONE ×2 (04:49→23:47)
[2020-06-18 04:50] LABS: Anion Gap 20 mmol/L (10-20); BUN (Urea Nitrogen) 76 mg/dL (8.4-25.7); Calc. Creatinine Clearance 21 mL/min (70-130); Calcium 8.9 mg/dL (7.8-10.44); Carbon Dioxide 24 mmol/L (23-31); Chloride 100 mmol/L (98-107); Glucose 129 mg/dL (80-115); Potassium 5.3 mmol/L (3.5-5.1); Sodium 139 mmol/L (136-145)
[2020-06-18] MEDS: Vecuronium 10 MG VIAL IV PRN ×2 (04:55→23:52)
[2020-06-18] MEDS: Metoclopramide HCl 10 MG/2 ML VIAL IVP SCH ×3 (05:03→21:13)
[2020-06-18] MEDS: Mometasone 200 MCG/Formoterol 5 MCG 120 PUFF INHALER INH SCH ×2 (07:25→18:28)
[2020-06-18] MEDS: Dexamethasone 4 mg/ml Vial SLOW IVP SCH ×2 (08:34→20:47)
[2020-06-18] MEDS: Metoprolol Tartrate 25 MG TAB PO SCH (08:34)
[2020-06-18] MEDS: Pantoprazole 40 MG VIAL IVP SCH ×2 (08:35→20:47)
[2020-06-18 09:15] LABS: Hemoglobin 7.8 g/dL (14.0-18.0)
[2020-06-18 09:23] LABS: Vancomycin, Random 11.8 ug/mL (See Comment)
[2020-06-18] MEDS: Dextrose 50% Abboject 50 ML SYRINGE SLOW IVP PRN ×2 (11:10→17:33)
[2020-06-18] MEDS: Meropenem 500 MG in Sodium Chloride 0.9% 100 ML IVPB SCH ×2 (14:43→23:11)
[2020-06-18] MEDS: Fentanyl CADD 100 ML IV SCH (17:56)
[2020-06-18] MEDS: Scopolamine 1.5 mg/72 hour Patch TOP SCH (20:03)
[2020-06-19] MEDS: Albuterol 200 PUFF (6.7GM INHALER) INH SCH ×4 (00:50→18:33)
[2020-06-19] MEDS: Propofol 1,000 MG/100 ML VIAL IV PRN ×6 (03:00→23:40)
[2020-06-19 04:40] LABS: #Eosinphils 0.1 thou/uL (0.0-0.7); #Lymphocytes 0.6 thou/uL (1.20-3.40); #Monocytes 0.5 thou/uL (0.11-0.59); %Basophils 0.3 % (0.0-1.0); %Eosinophils 0.7 % (0.0-10.0); %Lymphocytes 4.2 % (21.0-51.0); %Monocytes 3.7 % (0.0-10.0); %Neutrophils 91.1 % (42.0-75.0); Hemoglobin 9.3 g/dL (14.0-18.0); Mean Corpuscular HGB CONC 32.4 g/dL (32.0-36.0); Mean Corpuscular Hemoglobin 29.7 pg (27.0-31.0); Mean Corpuscular Volume 91.8 fL (78.0-98.0); Platelet Count 258 thou/uL (130-400); Red Blood Cell (RBC) Count 3.13 mill/uL (4.70-6.10); White Blood Cell (WBC) Count 13.2 thou/uL (4.8-10.8)
[2020-06-19] MEDS: Metoclopramide HCl 10 MG/2 ML VIAL IVP SCH ×3 (05:01→21:01)
[2020-06-19 05:03] LABS: Anion Gap 17 mmol/L (10-20); BUN (Urea Nitrogen) 46 mg/dL (8.4-25.7); Calc. Creatinine Clearance 27 mL/min (70-130); Calcium 8.8 mg/dL (7.8-10.44); Carbon Dioxide 28 mmol/L (23-31); Chloride 95 mmol/L (98-107); Glucose 100 mg/dL (80-115); Potassium 4.3 mmol/L (3.5-5.1); Sodium 136 mmol/L (136-145)
[2020-06-19] MEDS: Mometasone 200 MCG/Formoterol 5 MCG 120 PUFF INHALER INH SCH ×2 (06:34→18:34)
[2020-06-19] MEDS ORDERED: Fentanyl CADD 100 ML ONE (06:35)
[2020-06-19] MEDS: Dexamethasone 4 mg/ml Vial SLOW IVP SCH ×2 (08:00→21:00)
[2020-06-19] MEDS: Pantoprazole 40 MG VIAL IVP SCH ×2 (08:00→21:01)
[2020-06-19 09:21] LABS: Vancomycin, Random 8.5 ug/mL (See Comment)
[2020-06-19] MEDS ORDERED: Heparin 10,000 UNITS/ 10 ML VIAL ONE (10:11)
[2020-06-19] MEDS: Meropenem 500 MG in Sodium Chloride 0.9% 100 ML IVPB SCH ×2 (12:31→23:40)
[2020-06-19] MEDS: Fentanyl CADD 100 ML IV SCH (18:41)
[2020-06-20] MEDS: Albuterol 200 PUFF (6.7GM INHALER) INH SCH ×4 (00:46→18:45)
[2020-06-20] MEDS: Propofol 1,000 MG/100 ML VIAL IV PRN ×3 (04:17→15:42)
[2020-06-20] MEDS ORDERED: Fentanyl CADD 100 ML ONE ×2 (05:03→23:51)
[2020-06-20] MEDS: Metoclopramide HCl 10 MG/2 ML VIAL IVP SCH ×3 (05:19→21:03)
[2020-06-20 05:35] LABS: Albumin 3.1 g/dL (3.4-4.8)
[2020-06-20 05:41] LABS: Phosphorus 10.1 mg/dL (2.3-4.7)
[2020-06-20 05:42] LABS: Mean Corpuscular HGB CONC 33.5 g/dL (32.0-36.0); Mean Corpuscular Hemoglobin 29.8 pg (27.0-31.0); Mean Corpuscular Volume 89.1 fL (78.0-98.0); Mean Platelet Volume 7.7 fL (7.4-10.4); Platelet Count 306 thou/uL (130-400); RBC Distribution Width 14.7 % (11.5-14.5); Red Blood Cell (RBC) Count 1.34 mill/uL (4.70-6.10); White Blood Cell (WBC) Count 17.3 thou/uL (4.8-10.8)
[2020-06-20 05:48] LABS: Anion Gap 22 mmol/L (10-20); BUN (Urea Nitrogen) 80 mg/dL (8.4-25.7); Band 29 % (5-11); Calc. Creatinine Clearance 17 mL/min (70-130); Calcium 8.7 mg/dL (7.8-10.44); Carbon Dioxide 22 mmol/L (23-31); Chloride 92 mmol/L (98-107); Glucose 124 mg/dL (80-115); Lymphocytes 5 % (21-51); MDiff Complete? YES; Metamyelocyte 1 % (0-0); Monocytes 6 % (0-10); Neutrophil 59 % (42-75); Platelet Morphology Comment Appears Adequate; Potassium 4.8 mmol/L (3.5-5.1); Sodium 131 mmol/L (136-145)
[2020-06-20] MEDS: Mometasone 200 MCG/Formoterol 5 MCG 120 PUFF INHALER INH SCH ×2 (06:27→18:45)
[2020-06-20 06:58] LABS: #Lymphocytes 0.6 thou/uL (1.20-3.40); #Monocytes 0.6 thou/uL (0.11-0.59); #Neutrophils 11.9 thou/uL (1.40-6.50); %Basophils 0.3 % (0.0-1.0); %Eosinophils 0.4 % (0.0-10.0); %Lymphocytes 4.7 % (21.0-51.0); %Monocytes 4.4 % (0.0-10.0); %Neutrophils 90.2 % (42.0-75.0); Hemoglobin 8.4 g/dL (14.0-18.0); Mean Corpuscular HGB CONC 33.1 g/dL (32.0-36.0); Mean Corpuscular Hemoglobin 29.5 pg (27.0-31.0); Mean Platelet Volume 7.8 fL (7.4-10.4); Platelet Count 234 thou/uL (130-400); RBC Distribution Width 15.1 % (11.5-14.5); Red Blood Cell (RBC) Count 2.84 mill/uL (4.70-6.10); White Blood Cell (WBC) Count 13.2 thou/uL (4.8-10.8)
[2020-06-20] MEDS: Dexamethasone 4 mg/ml Vial SLOW IVP SCH ×2 (08:15→21:03)
[2020-06-20] MEDS: Pantoprazole 40 MG VIAL IVP SCH ×2 (08:15→21:03)
[2020-06-20 10:07] LABS: Vancomycin, Random 8.1 ug/mL (See Comment)
[2020-06-20] MEDS ORDERED: Fentanyl 100 MCG/2 ML VIAL ONE (12:25)
[2020-06-20] MEDS ORDERED: Midazolam HCl 2 mg/2 ml Vial ONE (12:25)
[2020-06-20] MEDS ORDERED: Bupivacaine 0.25% HCL 30 ML VIAL ONE (12:34)
[2020-06-20] MEDS ORDERED: EPINEPHrine 1 MG/ML AMP ONE (12:34)
[2020-06-20] MEDS ORDERED: PHENYLEPHRINE-NS 100 MCG/ML 10 ML SYRINGE ONE (13:07)
[2020-06-20] MEDS ORDERED: ePHEDrine 50 MG/ML VIAL ONE (13:07)
[2020-06-20] MEDS ORDERED: Rocuronium Bromide 10 MG/ML (10ML VIAL) ONE (13:07)
[2020-06-20] MEDS ORDERED: Norepinephrine 4 MG/4 ML VIAL ONE (13:15)
[2020-06-20 13:41] LABS: Actual Bicarbonate (HCO3a) 21.5 mEq/L (22-28); Base Excess (BEa) -9.1 mEq/L (-2.0 to +3.0); Calcium, Ionized (arterial) 1.02 mmol/L (1.12-1.30); Carboxyhemoglobin (COHb) 1.2 gm% (0.0-3.0); Hemoglobin (Hb) 9.4 g/dL (14.0-18.0); Potassium - ABG Lab 4.65 mmol/L (3.70-5.30)
[2020-06-20 13:53] LABS: CO2 Tension 77.4 mmHg (35.0-45.0); O2 Tension (PaO2), arterial 41.1 mmHg (> 80.0); Puncture Site Arterial Line; pH, Arterial 7.06 (7.35-7.45)
[2020-06-20] MEDS ORDERED: Vancomycin 1.5 GRAM/300 ML BAG 1.5 GM in Premix Bag 1 BAG IVPB SCH (14:30)
[2020-06-20] MEDS ORDERED: Vancomycin HCl 750 MG in Sodium Chloride 0.9% 250 ML 250 ML IVPB SCH (14:30)
[2020-06-20] MEDS ORDERED: Vancomycin 1 GM in Premix Bag 1 BAG IVPB SCH (14:30)
[2020-06-20] MEDS: Meropenem 500 MG in Sodium Chloride 0.9% 100 ML IVPB SCH ×2 (14:44→23:27)
[2020-06-20] MEDS ORDERED: VANCOMYCIN 1.25 GM/250 ML BAG 1.25 GM in Premix Bag 1 BAG IVPB SCH ×2 (14:45→15:00)
[2020-06-20] MEDS ORDERED: Sodium Bicarb 50 MEQ/50 ML Abboject 8.4% SYRINGE IVP SCH (14:45)
[2020-06-20 14:52] LABS: CKMB 3.4 ng/mL (0-6.6)
[2020-06-20 14:57] LABS: Anion Gap 24 mmol/L (10-20); BUN (Urea Nitrogen) 98 mg/dL (8.4-25.7); Calc. Creatinine Clearance 15 mL/min (70-130); Calcium 8.5 mg/dL (7.8-10.44); Carbon Dioxide 20 mmol/L (23-31); Chloride 93 mmol/L (98-107); Glucose 164 mg/dL (80-115); Magnesium 2.4 mg/dL (1.6-2.6); Potassium 5.7 mmol/L (3.5-5.1); Sodium 131 mmol/L (136-145)
[2020-06-20] MEDS ORDERED: SODIUM BICARBONATE IV SCH (15:00)
[2020-06-20 15:20] LABS: Actual Bicarbonate (HCO3a) 21.1 mEq/L (22-28); Base Excess (BEa) -8.1 mEq/L (-2.0 to +3.0); CO2 Tension 64.2 mmHg (35.0-45.0); O2 Tension (PaO2), arterial 51.7 mmHg (> 80.0); pH, Arterial 7.13 (7.35-7.45)
[2020-06-20 15:21] LABS: Calcium, Ionized (arterial) 1.01 mmol/L (1.12-1.30); Carboxyhemoglobin (COHb) 0.7 gm% (0.0-3.0); Hemoglobin (Hb) 9.3 g/dL (14.0-18.0); Potassium - ABG Lab 4.77 mmol/L (3.70-5.30)
[2020-06-20 15:22] LABS: Puncture Site Arterial Line
[2020-06-20] MEDS ORDERED: Heparin 10,000 UNITS/ 10 ML VIAL ONE (16:48)
[2020-06-20] MEDS ORDERED: EPINEPHrine 1 MG/10 ML Abboject SYRINGE ONE (17:24)
[2020-06-20 18:21] LABS: CKMB 3.5 ng/mL (0-6.6)
[2020-06-20] MEDS: Fentanyl CADD 100 ML IV SCH (23:54)
[2020-06-21 04:11] LABS: Phosphorus 6.9 mg/dL (2.3-4.7)
[2020-06-21 04:12] LABS: Anion Gap 19 mmol/L (10-20); BUN (Urea Nitrogen) 58 mg/dL (8.4-25.7); Calc. Creatinine Clearance 23 mL/min (70-130); Calcium 8.2 mg/dL (7.8-10.44); Carbon Dioxide 29 mmol/L (23-31); Chloride 95 mmol/L (98-107); Glucose 74 mg/dL (80-115); Potassium 3.8 mmol/L (3.5-5.1); Sodium 139 mmol/L (136-145)
[2020-06-21 04:13] LABS: #Eosinphils 0.1 thou/uL (0.0-0.7); #Lymphocytes 0.4 thou/uL (1.20-3.40); #Monocytes 0.3 thou/uL (0.11-0.59); #Neutrophils 9.1 thou/uL (1.40-6.50); %Basophils 0.1 % (0.0-1.0); %Eosinophils 0.6 % (0.0-10.0); %Lymphocytes 4.2 % (21.0-51.0); %Monocytes 2.8 % (0.0-10.0); %Neutrophils 92.3 % (42.0-75.0); ALT (SGPT) 12 U/L (8-55); AST (SGOT) 22 U/L (5-34); Albumin 2.8 g/dL (3.4-4.8); Alkaline Phosphatase 104 U/L (40-110); Bilirubin, Direct 0.3 mg/dL (0.1-0.3); Bilirubin, Total 0.4 mg/dL (0.2-1.2); CK (CPK) 85 U/L (30-200); Hemoglobin 7.5 g/dL (14.0-18.0); Lipase 17 U/L (8-78); Mean Corpuscular HGB CONC 33.5 g/dL (32.0-36.0); Mean Corpuscular Hemoglobin 29.5 pg (27.0-31.0); Mean Corpuscular Volume 88.1 fL (78.0-98.0); Mean Platelet Volume 8.1 fL (7.4-10.4); Platelet Count 208 thou/uL (130-400); Protein, Total 5.8 g/dL (5.8-8.1); RBC Distribution Width 15.1 % (11.5-14.5); Red Blood Cell (RBC) Count 2.54 mill/uL (4.70-6.10); White Blood Cell (WBC) Count 9.8 thou/uL (4.8-10.8)
[2020-06-21] MEDS: Dextrose 50% Abboject 50 ML SYRINGE SLOW IVP PRN (04:54)
[2020-06-21] MEDS: Propofol 1,000 MG/100 ML VIAL IV PRN ×2 (05:37→20:43)
[2020-06-21] MEDS: Metoclopramide HCl 10 MG/2 ML VIAL IVP SCH ×3 (05:37→20:44)
[2020-06-21] MEDS: Albuterol 200 PUFF (6.7GM INHALER) INH SCH ×4 (06:22→18:08)
[2020-06-21] MEDS: Mometasone 200 MCG/Formoterol 5 MCG 120 PUFF INHALER INH SCH ×2 (06:23→18:08)
[2020-06-21] MEDS: Dexamethasone 4 mg/ml Vial SLOW IVP SCH ×2 (07:50→20:43)
[2020-06-21] MEDS: Pantoprazole 40 MG VIAL IVP SCH ×2 (07:50→20:43)
[2020-06-21 09:38] LABS: Actual Bicarbonate (HCO3a) 33.6 mEq/L (22-28); Base Excess (BEa) 8.4 mEq/L (-2.0 to +3.0); CO2 Tension 50.9 mmHg (35.0-45.0); Calcium, Ionized (arterial) 0.99 mmol/L (1.12-1.30); Carboxyhemoglobin (COHb) 0.5 gm% (0.0-3.0); pH, Arterial 7.44 (7.35-7.45)
[2020-06-21 09:40] LABS: O2 Tension (PaO2), arterial 47.1 mmHg (> 80.0)
[2020-06-21 09:41] LABS: Puncture Site Arterial Line
[2020-06-21 09:44] LABS: ALV-art Gradient 388.375 mmHg (0-20)
[2020-06-21 09:47] LABS: Vancomycin, Random 19.1 ug/mL (See Comment)
[2020-06-21] MEDS ORDERED: Albumin 25% 25 GM/100 ML BOT IVPB SCH (13:30)
[2020-06-21] MEDS ORDERED: Fentanyl CADD 100 ML ONE (16:38)
[2020-06-21] MEDS ORDERED: Heparin 10,000 UNITS/ 10 ML VIAL ONE (16:50)
[2020-06-21 17:09] LABS: CK1-BB 0 % (0); CK2-MB 0 % (0-3); CK3-MM 100 % (97-100); Creatine Kinase Total 79 U/L (41-331); Macro I 0 % (Not Observed); Macro II 0 % (Not Observed)
[2020-06-21] MEDS: Scopolamine 1.5 mg/72 hour Patch TOP SCH (20:00)
[2020-06-22] MEDS: Albuterol 200 PUFF (6.7GM INHALER) INH SCH ×4 (01:15→18:30)
[2020-06-22] MEDS: Propofol 1,000 MG/100 ML VIAL IV PRN ×5 (01:21→21:19)
[2020-06-22 04:25] LABS: #Lymphocytes 0.5 thou/uL (1.20-3.40); #Monocytes 0.4 thou/uL (0.11-0.59); #Neutrophils 8.1 thou/uL (1.40-6.50); %Basophils 0.2 % (0.0-1.0); %Eosinophils 0.4 % (0.0-10.0); %Monocytes 4.3 % (0.0-10.0); %Neutrophils 90.1 % (42.0-75.0); Hemoglobin 7.1 g/dL (14.0-18.0); Mean Corpuscular HGB CONC 33.4 g/dL (32.0-36.0); Mean Corpuscular Hemoglobin 29.3 pg (27.0-31.0); Mean Corpuscular Volume 87.6 fL (78.0-98.0); Mean Platelet Volume 8.8 fL (7.4-10.4); Platelet Count 198 thou/uL (130-400); RBC Distribution Width 14.9 % (11.5-14.5); Red Blood Cell (RBC) Count 2.41 mill/uL (4.70-6.10)
[2020-06-22 05:00] LABS: Anion Gap 22 mmol/L (10-20); BUN (Urea Nitrogen) 74 mg/dL (8.4-25.7); Calc. Creatinine Clearance 17 mL/min (70-130); Calcium 8.7 mg/dL (7.8-10.44); Carbon Dioxide 31 mmol/L (23-31); Chloride 93 mmol/L (98-107); Glucose 91 mg/dL (80-115); Potassium 3.2 mmol/L (3.5-5.1); Sodium 143 mmol/L (136-145)
[2020-06-22] MEDS: Metoclopramide HCl 10 MG/2 ML VIAL IVP SCH ×3 (05:29→21:19)
[2020-06-22] MEDS ORDERED: Fentanyl CADD 100 ML ONE ×2 (05:32→18:36)
[2020-06-22] MEDS: Fentanyl CADD 100 ML IV SCH (05:33)
[2020-06-22] MEDS: Mometasone 200 MCG/Formoterol 5 MCG 120 PUFF INHALER INH SCH ×2 (07:53→18:30)
[2020-06-22] MEDS: Pantoprazole 40 MG VIAL IVP SCH ×2 (08:17→21:20)
[2020-06-22] MEDS: Dexamethasone 4 mg/ml Vial SLOW IVP SCH ×2 (08:17→21:19)
[2020-06-22 09:17] LABS: Vancomycin, Random 16.1 ug/mL (See Comment)
[2020-06-22] MEDS: Lorazepam 2 MG/ML VIAL SLOW IVP PRN ×2 (11:37→13:24)
[2020-06-22] MEDS ORDERED: Heparin 10,000 UNITS/ 10 ML VIAL ONE (16:52)
[2020-06-23] MEDS: Albuterol 200 PUFF (6.7GM INHALER) INH SCH ×5 (00:31→22:37)
[2020-06-23] MEDS: Propofol 1,000 MG/100 ML VIAL IV PRN ×5 (01:26→21:41)
[2020-06-23] MEDS: Metoclopramide HCl 10 MG/2 ML VIAL IVP SCH ×3 (05:00→21:42)
[2020-06-23 05:18] LABS: #Lymphocytes 0.5 thou/uL (1.20-3.40); #Monocytes 0.5 thou/uL (0.11-0.59); #Neutrophils 10.7 thou/uL (1.40-6.50); %Basophils 0.2 % (0.0-1.0); %Eosinophils 0.4 % (0.0-10.0); %Lymphocytes 4.6 % (21.0-51.0); %Monocytes 4.2 % (0.0-10.0); %Neutrophils 90.7 % (42.0-75.0); Hemoglobin 9.2 g/dL (14.0-18.0); Mean Corpuscular HGB CONC 33.1 g/dL (32.0-36.0); Mean Corpuscular Hemoglobin 29.5 pg (27.0-31.0); Mean Corpuscular Volume 89.2 fL (78.0-98.0); Mean Platelet Volume 8.7 fL (7.4-10.4); Platelet Count 199 thou/uL (130-400); RBC Distribution Width 15.5 % (11.5-14.5); White Blood Cell (WBC) Count 11.8 thou/uL (4.8-10.8)
[2020-06-23 05:35] LABS: Anion Gap 16 mmol/L (10-20); BUN (Urea Nitrogen) 55 mg/dL (8.4-25.7); Calc. Creatinine Clearance 24 mL/min (70-130); Calcium 8.7 mg/dL (7.8-10.44); Carbon Dioxide 29 mmol/L (23-31); Chloride 96 mmol/L (98-107); Glucose 154 mg/dL (80-115); Iron 20 ug/dL (65-175); Iron Binding Capacity, Total 119 mcg/dL (261-462); Sodium 137 mmol/L (136-145)
[2020-06-23] MEDS ORDERED: Fentanyl CADD 100 ML ONE ×2 (06:59→21:25)
[2020-06-23] MEDS: Fentanyl CADD 100 ML IV SCH ×2 (07:05→21:31)
[2020-06-23] MEDS: Mometasone 200 MCG/Formoterol 5 MCG 120 PUFF INHALER INH SCH ×2 (07:54→18:44)
[2020-06-23] MEDS: Dexamethasone 4 mg/ml Vial SLOW IVP SCH ×2 (08:11→20:21)
[2020-06-23] MEDS: Pantoprazole 40 MG VIAL IVP SCH ×2 (08:12→20:22)
[2020-06-23] MEDS ORDERED: EPOETIN ALFA-EPBX (ESRD) 10,000 UNIT/ML VIAL SC SCH (09:15)
[2020-06-23] MEDS ORDERED: Iron, Sodium Ferric Gluconate 250 MG in Sodium Chloride 0.9% 100 ML IVPB SCH (09:15)
[2020-06-23 09:56] LABS: Vancomycin, Random 15.8 ug/mL (See Comment)
[2020-06-24] MEDS ORDERED: Propofol 1,000 MG/100 ML VIAL IV ONE (02:05)
[2020-06-24] MEDS: Mometasone 200 MCG/Formoterol 5 MCG 120 PUFF INHALER INH SCH ×2 (05:00→18:59)
[2020-06-24] MEDS: Albuterol 200 PUFF (6.7GM INHALER) INH SCH ×4 (05:15→22:51)
[2020-06-24] MEDS: Propofol 1,000 MG/100 ML VIAL IV PRN ×3 (08:00→20:03)
[2020-06-24] MEDS: Pantoprazole 40 MG VIAL IVP SCH ×2 (14:17→21:31)
[2020-06-24] MEDS: Dexamethasone 4 mg/ml Vial SLOW IVP SCH ×2 (14:17→21:31)
[2020-06-24] MEDS: Metoclopramide HCl 10 MG/2 ML VIAL IVP SCH ×3 (14:17→21:31)
[2020-06-24] MEDS: Aspirin 81 mg Enteric Coated Tablet PER TUBE SCH (14:17)
[2020-06-24 17:23] LABS: pH, Arterial 7.27 (7.35-7.45)
[2020-06-24 17:24] LABS: Actual Bicarbonate (HCO3a) 27.1 mEq/L (22-28); Base Excess (BEa) -0.3 mEq/L (-2.0 to +3.0)
[2020-06-24 17:25] LABS: Calcium, Ionized (arterial) 1.12 mmol/L (1.12-1.30); Carboxyhemoglobin (COHb) 1.1 gm% (0.0-3.0); Hemoglobin (Hb) 9.2 g/dL (14.0-18.0); Potassium - ABG Lab 3.95 mmol/L (3.70-5.30); Puncture Site RRA
[2020-06-24 17:35] LABS: Anion Gap 19 mmol/L (10-20); BUN (Urea Nitrogen) 86 mg/dL (8.4-25.7); Calc. Creatinine Clearance 18 mL/min (70-130); Calcium 9.1 mg/dL (7.8-10.44); Carbon Dioxide 27 mmol/L (23-31); Chloride 92 mmol/L (98-107); Glucose 117 mg/dL (80-115); Sodium 134 mmol/L (136-145)
[2020-06-24] MEDS: Scopolamine 1.5 mg/72 hour Patch TOP SCH (18:10)
[2020-06-24 18:19] LABS: #Eosinphils 0.1 thou/uL (0.0-0.7); #Lymphocytes 0.4 thou/uL (1.20-3.40); #Monocytes 0.6 thou/uL (0.11-0.59); #Neutrophils 10.3 thou/uL (1.40-6.50); %Basophils 0.2 % (0.0-1.0); %Eosinophils 0.5 % (0.0-10.0); %Lymphocytes 3.9 % (21.0-51.0); %Monocytes 5.1 % (0.0-10.0); %Neutrophils 90.3 % (42.0-75.0); Hemoglobin 8.8 g/dL (14.0-18.0); Mean Corpuscular HGB CONC 32.8 g/dL (32.0-36.0); Mean Corpuscular Hemoglobin 29.5 pg (27.0-31.0); Mean Platelet Volume 8.7 fL (7.4-10.4); Platelet Count 196 thou/uL (130-400); RBC Distribution Width 15.6 % (11.5-14.5); Red Blood Cell (RBC) Count 2.97 mill/uL (4.70-6.10); White Blood Cell (WBC) Count 11.4 thou/uL (4.8-10.8)
[2020-06-24 19:08] LABS: Vancomycin, Random 15.2 ug/mL (See Comment)
[2020-06-24] MEDS ORDERED: Fentanyl CADD 100 ML ONE (23:07)
[2020-06-24] MEDS: Fentanyl CADD 100 ML IV SCH (23:25)
[2020-06-25] MEDS: Propofol 1,000 MG/100 ML VIAL IV PRN ×2 (01:01→06:13)
[2020-06-25] MEDS ORDERED: Fentanyl BOLUS 250 ML IVPB PRN (01:41)
[2020-06-25 04:31] LABS: #Lymphocytes 0.4 thou/uL (1.20-3.40); #Monocytes 0.6 thou/uL (0.11-0.59); #Neutrophils 10.6 thou/uL (1.40-6.50); %Basophils 0.3 % (0.0-1.0); %Eosinophils 0.4 % (0.0-10.0); %Lymphocytes 3.1 % (21.0-51.0); %Monocytes 4.9 % (0.0-10.0); %Neutrophils 91.3 % (42.0-75.0); Hemoglobin 8.8 g/dL (14.0-18.0); Mean Corpuscular HGB CONC 33.1 g/dL (32.0-36.0); Mean Corpuscular Hemoglobin 29.4 pg (27.0-31.0); Mean Corpuscular Volume 88.9 fL (78.0-98.0); Mean Platelet Volume 8.5 fL (7.4-10.4); Platelet Count 234 thou/uL (130-400); RBC Distribution Width 15.8 % (11.5-14.5); White Blood Cell (WBC) Count 11.7 thou/uL (4.8-10.8)
[2020-06-25 05:00] LABS: Anion Gap 20 mmol/L (10-20); BUN (Urea Nitrogen) 103 mg/dL (8.4-25.7); Calc. Creatinine Clearance 14 mL/min (70-130); Calcium 9.2 mg/dL (7.8-10.44); Carbon Dioxide 26 mmol/L (23-31); Chloride 91 mmol/L (98-107); Glucose 149 mg/dL (80-115); Potassium 4.9 mmol/L (3.5-5.1); Sodium 132 mmol/L (136-145)
[2020-06-25] MEDS: Metoclopramide HCl 10 MG/2 ML VIAL IVP SCH ×3 (06:13→21:11)
[2020-06-25 06:30] LABS: Albumin 3.1 g/dL (3.4-4.8)
[2020-06-25 06:33] LABS: Phosphorus 9.3 mg/dL (2.3-4.7)
[2020-06-25] MEDS: Albuterol 200 PUFF (6.7GM INHALER) INH SCH ×4 (07:30→22:28)
[2020-06-25] MEDS: Mometasone 200 MCG/Formoterol 5 MCG 120 PUFF INHALER INH SCH ×2 (07:30→19:18)
[2020-06-25] MEDS: Aspirin 81 mg Enteric Coated Tablet PER TUBE SCH (08:31)
[2020-06-25] MEDS: Dexamethasone 4 mg/ml Vial SLOW IVP SCH ×2 (08:31→20:46)
[2020-06-25] MEDS: Pantoprazole 40 MG VIAL IVP SCH ×2 (08:32→20:47)
[2020-06-25] MEDS: HumaLOG 300 UNITS/3 ML VIAL SC PRN (09:47)
[2020-06-25] MEDS ORDERED: Heparin 10,000 UNITS/ 10 ML VIAL SLOW IVP PRN ×3 (15:43→16:30)
[2020-06-25] MEDS ORDERED: Heparin 5,000 UNITS/ML VIAL SLOW IVP PRN ×2 (15:45)
[2020-06-25] MEDS ORDERED: Heparin 10,000 UNITS/ 10 ML VIAL CATH PRN (16:31)
[2020-06-25] MEDS ORDERED: Heparin 10,000 UNITS/ 10 ML VIAL ONE (16:57)
[2020-06-25 19:37] LABS: Actual Bicarbonate (HCO3a) 27.5 mEq/L (22-28); Base Excess (BEa) 0.2 mEq/L (-2.0 to +3.0); CO2 Tension 59.2 mmHg (35.0-45.0); Calcium, Ionized (arterial) 1.12 mmol/L (1.12-1.30); Carboxyhemoglobin (COHb) 0.5 gm% (0.0-3.0); Hemoglobin (Hb) 9.4 g/dL (14.0-18.0); O2 Tension (PaO2), arterial 61.2 mmHg (> 80.0); Potassium - ABG Lab 3.67 mmol/L (3.70-5.30); pH, Arterial 7.29 (7.35-7.45)
[2020-06-25 19:38] LABS: Puncture Site RRA
[2020-06-25] MEDS: Acetaminophen 325 MG TAB PO PRN (21:26)
[2020-06-25] MEDS: Morphine 2 MG/ML VIAL SLOW IVP PRN (22:04)
[2020-06-26] MEDS: Morphine 2 MG/ML VIAL SLOW IVP PRN (00:23)
[2020-06-26] MEDS: Propofol 1,000 MG/100 ML VIAL IV PRN ×2 (01:42→06:19)
[2020-06-26 05:03] LABS: #Lymphocytes 0.5 thou/uL (1.20-3.40); #Monocytes 1.2 thou/uL (0.11-0.59); #Neutrophils 6.9 thou/uL (1.40-6.50); %Basophils 0.4 % (0.0-1.0); %Eosinophils 0.5 % (0.0-10.0); %Lymphocytes 5.9 % (21.0-51.0); %Monocytes 13.4 % (0.0-10.0); %Neutrophils 79.8 % (42.0-75.0); Hemoglobin 8.4 g/dL (14.0-18.0); Mean Corpuscular Hemoglobin 30.4 pg (27.0-31.0); Mean Corpuscular Volume 89.6 fL (78.0-98.0); Platelet Count 263 thou/uL (130-400); RBC Distribution Width 15.8 % (11.5-14.5); Red Blood Cell (RBC) Count 2.76 mill/uL (4.70-6.10); White Blood Cell (WBC) Count 8.6 thou/uL (4.8-10.8)
[2020-06-26] MEDS: Metoclopramide HCl 10 MG/2 ML VIAL IVP SCH ×3 (05:03→21:20)
[2020-06-26] MEDS: Acetaminophen 325 MG TAB PO PRN (05:03)
[2020-06-26 05:35] LABS: Anion Gap 19 mmol/L (10-20); BUN (Urea Nitrogen) 66 mg/dL (8.4-25.7); Calc. Creatinine Clearance 19 mL/min (70-130); Calcium 8.8 mg/dL (7.8-10.44); Carbon Dioxide 27 mmol/L (23-31); Chloride 94 mmol/L (98-107); Glucose 111 mg/dL (80-115); Potassium 3.7 mmol/L (3.5-5.1); Sodium 136 mmol/L (136-145)
[2020-06-26] MEDS: Albuterol 200 PUFF (6.7GM INHALER) INH SCH ×3 (07:00→18:35)
[2020-06-26] MEDS: Mometasone 200 MCG/Formoterol 5 MCG 120 PUFF INHALER INH SCH ×2 (07:25→18:35)
[2020-06-26] MEDS: Pantoprazole 40 MG VIAL IVP SCH ×2 (09:04→21:20)
[2020-06-26] MEDS: Dexamethasone 4 mg/ml Vial SLOW IVP SCH ×2 (09:04→21:19)
[2020-06-26] MEDS: Aspirin 81 mg Enteric Coated Tablet PER TUBE SCH (09:04)
[2020-06-26] MEDS ORDERED: Fentanyl CADD 100 ML ONE (20:53)
[2020-06-26] MEDS: Fentanyl CADD 100 ML IV SCH (21:41)
[2020-06-27] MEDS: Albuterol 200 PUFF (6.7GM INHALER) INH SCH ×4 (00:04→18:48)
[2020-06-27] MEDS: Lorazepam 2 MG/ML VIAL SLOW IVP PRN (02:40)
[2020-06-27 05:48] LABS: Anion Gap 18 mmol/L (10-20); BUN (Urea Nitrogen) 93 mg/dL (8.4-25.7); Calc. Creatinine Clearance 15 mL/min (70-130); Calcium 9.2 mg/dL (7.8-10.44); Carbon Dioxide 27 mmol/L (23-31); Chloride 93 mmol/L (98-107); Glucose 136 mg/dL (80-115); Potassium 3.7 mmol/L (3.5-5.1); Sodium 134 mmol/L (136-145)
[2020-06-27 05:51] LABS: #Eosinphils 0.1 thou/uL (0.0-0.7); #Lymphocytes 0.4 thou/uL (1.20-3.40); #Monocytes 1.1 thou/uL (0.11-0.59); #Neutrophils 7.7 thou/uL (1.40-6.50); %Basophils 0.4 % (0.0-1.0); %Eosinophils 0.5 % (0.0-10.0); %Lymphocytes 4.7 % (21.0-51.0); %Neutrophils 82.4 % (42.0-75.0); Hemoglobin 8.3 g/dL (14.0-18.0); Mean Corpuscular HGB CONC 33.3 g/dL (32.0-36.0); Mean Corpuscular Hemoglobin 29.3 pg (27.0-31.0); Mean Corpuscular Volume 87.8 fL (78.0-98.0); Mean Platelet Volume 8.4 fL (7.4-10.4); Platelet Count 281 thou/uL (130-400); RBC Distribution Width 15.8 % (11.5-14.5); Red Blood Cell (RBC) Count 2.83 mill/uL (4.70-6.10); White Blood Cell (WBC) Count 9.3 thou/uL (4.8-10.8)
[2020-06-27] MEDS: Metoclopramide HCl 10 MG/2 ML VIAL IVP SCH ×3 (06:00→22:22)
[2020-06-27] MEDS: Mometasone 200 MCG/Formoterol 5 MCG 120 PUFF INHALER INH SCH ×2 (06:30→18:48)
[2020-06-27] MEDS ORDERED: Midazolam HCl 2 mg/2 ml Vial ONE (07:19)
[2020-06-27] MEDS ORDERED: Lidocaine 1% w/Epinephrine 1:100K 20 ML VIAL ONE (07:20)
[2020-06-27] MEDS ORDERED: Sterile Water 10 ML ONE ×2 (07:23→10:15)
[2020-06-27] MEDS ORDERED: Sterile Water 10 ML VIAL IVP PRN (07:26)
[2020-06-27] MEDS: Pantoprazole 40 MG VIAL IVP SCH ×2 (08:47→20:08)
[2020-06-27] MEDS: Iron, Sodium Ferric Gluconate 250 MG in Sodium Chloride 0.9% 100 ML IVPB SCH (08:47)
[2020-06-27] MEDS: Dexamethasone 4 mg/ml Vial SLOW IVP SCH ×2 (08:47→20:08)
[2020-06-27] MEDS: Aspirin Chewable 81 MG TAB PER TUBE SCH (08:47)
[2020-06-27] MEDS ORDERED: Water For Injection,Sterile 20 ML ONE (10:16)
[2020-06-27] MEDS: EPOETIN ALFA-EPBX (ESRD) 4,000 UNIT/ML VIAL SC SCH (11:55)
[2020-06-27] MEDS: Vecuronium 10 MG VIAL IV PRN (11:55)
[2020-06-27] MEDS ORDERED: Fentanyl CADD 100 ML ONE (13:07)
[2020-06-27] MEDS: Propofol 1,000 MG/100 ML VIAL IV PRN (16:58)
[2020-06-27] MEDS ORDERED: Heparin 10,000 UNITS/ 10 ML VIAL ONE (16:59)
[2020-06-27] MEDS: Scopolamine 1.5 mg/72 hour Patch TOP SCH (19:50)
[2020-06-27] MEDS: Heparin 5,000 UNITS/ML VIAL SC SCH (20:19)
[2020-06-28] MEDS: Albuterol 200 PUFF (6.7GM INHALER) INH SCH ×4 (00:21→19:30)
[2020-06-28 04:12] LABS: #Basophils 0.1 thou/uL (0.0-0.2); #Eosinphils 0.1 thou/uL (0.0-0.7); #Lymphocytes 0.5 thou/uL (1.20-3.40); #Neutrophils 6.9 thou/uL (1.40-6.50); %Basophils 0.6 % (0.0-1.0); %Eosinophils 0.6 % (0.0-10.0); %Lymphocytes 5.9 % (21.0-51.0); %Neutrophils 80.9 % (42.0-75.0); Hemoglobin 8.4 g/dL (14.0-18.0); Mean Corpuscular HGB CONC 32.1 g/dL (32.0-36.0); Mean Corpuscular Hemoglobin 28.6 pg (27.0-31.0); Mean Corpuscular Volume 89.1 fL (78.0-98.0); Platelet Count 328 thou/uL (130-400); Red Blood Cell (RBC) Count 2.95 mill/uL (4.70-6.10); White Blood Cell (WBC) Count 8.5 thou/uL (4.8-10.8)
[2020-06-28 04:30] LABS: Anion Gap 22 mmol/L (10-20); BUN (Urea Nitrogen) 80 mg/dL (8.4-25.7); Calc. Creatinine Clearance 15 mL/min (70-130); Carbon Dioxide 24 mmol/L (23-31); Chloride 92 mmol/L (98-107); Glucose 93 mg/dL (80-115); Potassium 4.6 mmol/L (3.5-5.1); Sodium 133 mmol/L (136-145)
[2020-06-28] MEDS ORDERED: Fentanyl CADD 100 ML ONE (04:41)
[2020-06-28] MEDS: Fentanyl CADD 100 ML IV SCH ×2 (04:57→19:04)
[2020-06-28] MEDS: Metoclopramide HCl 10 MG/2 ML VIAL IVP SCH ×3 (05:41→22:20)
[2020-06-28] MEDS ORDERED: Activase 2 MG VIAL CATH PRN (06:00)
[2020-06-28] MEDS: Mometasone 200 MCG/Formoterol 5 MCG 120 PUFF INHALER INH SCH ×2 (06:36→19:29)
[2020-06-28] MEDS: Dexamethasone 4 mg/ml Vial SLOW IVP SCH (07:58)
[2020-06-28] MEDS: Aspirin Chewable 81 MG TAB PER TUBE SCH (07:58)
[2020-06-28] MEDS: Pantoprazole 40 MG VIAL IVP SCH ×2 (07:59→20:43)
[2020-06-28] MEDS: Heparin 5,000 UNITS/ML VIAL SC SCH ×2 (07:59→20:49)
[2020-06-28] MEDS ORDERED: Heparin 10,000 UNITS/ 10 ML VIAL ONE (10:41)
[2020-06-28] MEDS: Iron, Sodium Ferric Gluconate 250 MG in Sodium Chloride 0.9% 100 ML IVPB SCH (12:14)
[2020-06-28] MEDS: Propofol 1,000 MG/100 ML VIAL IV PRN (20:43)
[2020-06-29] MEDS: Albuterol 200 PUFF (6.7GM INHALER) INH SCH ×4 (00:15→18:41)
[2020-06-29] MEDS: Acetaminophen 325 MG TAB PO PRN (01:24)
[2020-06-29 04:54] LABS: #Eosinphils 0.1 thou/uL (0.0-0.7); #Lymphocytes 0.6 thou/uL (1.20-3.40); #Monocytes 0.9 thou/uL (0.11-0.59); #Neutrophils 5.7 thou/uL (1.40-6.50); %Basophils 0.5 % (0.0-1.0); %Eosinophils 0.8 % (0.0-10.0); %Lymphocytes 7.7 % (21.0-51.0); %Monocytes 12.9 % (0.0-10.0); Hemoglobin 8.5 g/dL (14.0-18.0); Mean Corpuscular Hemoglobin 30.1 pg (27.0-31.0); Mean Corpuscular Volume 88.4 fL (78.0-98.0); Mean Platelet Volume 8.1 fL (7.4-10.4); Platelet Count 311 thou/uL (130-400); RBC Distribution Width 15.8 % (11.5-14.5); Red Blood Cell (RBC) Count 2.83 mill/uL (4.70-6.10); White Blood Cell (WBC) Count 7.3 thou/uL (4.8-10.8)
[2020-06-29 05:15] LABS: Anion Gap 14 mmol/L (10-20); BUN (Urea Nitrogen) 47 mg/dL (8.4-25.7); Calc. Creatinine Clearance 21 mL/min (70-130); Calcium 8.5 mg/dL (7.8-10.44); Carbon Dioxide 29 mmol/L (23-31); Chloride 95 mmol/L (98-107); Glucose 158 mg/dL (80-115); Sodium 135 mmol/L (136-145)
[2020-06-29] MEDS: Propofol 1,000 MG/100 ML VIAL IV PRN ×2 (05:22→15:10)
[2020-06-29] MEDS: Metoclopramide HCl 10 MG/2 ML VIAL IVP SCH ×3 (05:23→21:40)
[2020-06-29] MEDS ORDERED: Fentanyl CADD 100 ML ONE ×2 (06:39→19:58)
[2020-06-29] MEDS: Fentanyl CADD 100 ML IV SCH ×2 (06:48→20:05)
[2020-06-29] MEDS: Mometasone 200 MCG/Formoterol 5 MCG 120 PUFF INHALER INH SCH ×2 (07:15→18:41)
[2020-06-29] MEDS ORDERED: Potassium Chloride 20 MEQ TAB PER TUBE SCH (07:15)
[2020-06-29] MEDS: Aspirin Chewable 81 MG TAB PER TUBE SCH (08:04)
[2020-06-29] MEDS: Heparin 5,000 UNITS/ML VIAL SC SCH ×2 (08:04→21:40)
[2020-06-29] MEDS: Dexamethasone 4 mg/ml Vial SLOW IVP SCH (08:04)
[2020-06-29] MEDS: Pantoprazole 40 MG VIAL IVP SCH ×2 (08:05→21:40)
[2020-06-29] MEDS ORDERED: Heparin 10,000 UNITS/ 10 ML VIAL ONE (10:48)
[2020-06-29] MEDS: EPOETIN ALFA-EPBX (ESRD) 4,000 UNIT/ML VIAL SC SCH (15:58)
[2020-06-29 21:52] LABS: Anion Gap 15 mmol/L (10-20); BUN (Urea Nitrogen) 58 mg/dL (8.4-25.7); Calc. Creatinine Clearance 18 mL/min (70-130); Calcium 8.9 mg/dL (7.8-10.44); Carbon Dioxide 29 mmol/L (23-31); Chloride 94 mmol/L (98-107); Glucose 144 mg/dL (80-115); Magnesium 2.3 mg/dL (1.6-2.6); Phosphorus 3.1 mg/dL (2.3-4.7); Potassium 3.5 mmol/L (3.5-5.1); Sodium 134 mmol/L (136-145)
[2020-06-29] MEDS ORDERED: Potassium Phosphate 20 MMOL in Sodium Chloride 0.9% 250 ML 250 ML IVPB SCH (23:30)
[2020-06-30] MEDS: Albuterol 200 PUFF (6.7GM INHALER) INH SCH ×4 (00:41→18:32)
[2020-06-30] MEDS: Propofol 1,000 MG/100 ML VIAL IV PRN ×4 (01:00→22:41)
[2020-06-30] MEDS: Lorazepam 2 MG/ML VIAL SLOW IVP PRN (03:00)
[2020-06-30 04:41] LABS: #Lymphocytes 0.4 thou/uL (1.20-3.40); #Monocytes 0.8 thou/uL (0.11-0.59); #Neutrophils 5.9 thou/uL (1.40-6.50); %Basophils 0.7 % (0.0-1.0); %Eosinophils 0.5 % (0.0-10.0); %Lymphocytes 5.5 % (21.0-51.0); %Monocytes 10.8 % (0.0-10.0); %Neutrophils 82.5 % (42.0-75.0); Mean Corpuscular HGB CONC 33.8 g/dL (32.0-36.0); Mean Corpuscular Hemoglobin 30.1 pg (27.0-31.0); Mean Platelet Volume 8.2 fL (7.4-10.4); Platelet Count 322 thou/uL (130-400); Red Blood Cell (RBC) Count 2.67 mill/uL (4.70-6.10); White Blood Cell (WBC) Count 7.2 thou/uL (4.8-10.8)
[2020-06-30] MEDS: Metoclopramide HCl 10 MG/2 ML VIAL IVP SCH ×3 (05:14→21:22)
[2020-06-30] MEDS: HumaLOG 300 UNITS/3 ML VIAL SC PRN ×4 (05:15→22:26)
[2020-06-30 05:19] LABS: Anion Gap 17 mmol/L (10-20); BUN (Urea Nitrogen) 66 mg/dL (8.4-25.7); Calc. Creatinine Clearance 16 mL/min (70-130); Calcium 8.9 mg/dL (7.8-10.44); Carbon Dioxide 25 mmol/L (23-31); Chloride 94 mmol/L (98-107); Glucose 184 mg/dL (80-115); Potassium 3.6 mmol/L (3.5-5.1); Sodium 132 mmol/L (136-145)
[2020-06-30] MEDS: Mometasone 200 MCG/Formoterol 5 MCG 120 PUFF INHALER INH SCH ×2 (06:34→18:32)
[2020-06-30] MEDS ORDERED: Potassium Bicarbonate/Cit Ac 20 MEQ TAB PER TUBE SCH (07:30)
[2020-06-30 07:56] LABS: ALT (SGPT) 8 U/L (8-55); AST (SGOT) 16 U/L (5-34); Albumin 2.9 g/dL (3.4-4.8); Alkaline Phosphatase 100 U/L (40-110); Bilirubin, Direct 0.3 mg/dL (0.1-0.3); Bilirubin, Total 0.5 mg/dL (0.2-1.2); Protein, Total 6.7 g/dL (5.8-8.1)
[2020-06-30] MEDS: Aspirin Chewable 81 MG TAB PER TUBE SCH (08:50)
[2020-06-30] MEDS: Pantoprazole 40 MG VIAL IVP SCH ×2 (08:50→21:22)
[2020-06-30] MEDS: Heparin 5,000 UNITS/ML VIAL SC SCH ×2 (08:50→21:22)
[2020-06-30] MEDS: Dexamethasone 4 mg/ml Vial SLOW IVP SCH (09:15)
[2020-06-30] MEDS ORDERED: Fentanyl CADD 100 ML ONE (10:30)
[2020-06-30] MEDS: Fentanyl CADD 100 ML IV SCH (10:56)
[2020-06-30] MEDS ORDERED: Metoprolol Tartrate 25 MG TAB PO SCH (13:15)
[2020-06-30] MEDS: Metoprolol Tartrate 25 MG TAB PO SCH ×2 (14:12→21:21)
[2020-06-30] MEDS: Albumin 25% 25 GM/100 ML BOT IVPB SCH (17:06)
[2020-07-01] MEDS: Albuterol 200 PUFF (6.7GM INHALER) INH SCH ×4 (00:11→18:45)
[2020-07-01] MEDS: Albumin 25% 25 GM/100 ML BOT IVPB SCH (01:29)
[2020-07-01] MEDS: Propofol 1,000 MG/100 ML VIAL IV PRN ×2 (03:43→11:43)
[2020-07-01 04:25] LABS: #Eosinphils 0.1 thou/uL (0.0-0.7); #Lymphocytes 0.5 thou/uL (1.20-3.40); #Monocytes 0.8 thou/uL (0.11-0.59); #Neutrophils 6.6 thou/uL (1.40-6.50); %Basophils 0.6 % (0.0-1.0); %Eosinophils 1.2 % (0.0-10.0); %Monocytes 9.6 % (0.0-10.0); %Neutrophils 82.7 % (42.0-75.0); Hemoglobin 7.4 g/dL (14.0-18.0); Mean Corpuscular HGB CONC 34.1 g/dL (32.0-36.0); Mean Corpuscular Hemoglobin 30.3 pg (27.0-31.0); Mean Corpuscular Volume 88.6 fL (78.0-98.0); Mean Platelet Volume 8.2 fL (7.4-10.4); Platelet Count 311 thou/uL (130-400); Red Blood Cell (RBC) Count 2.43 mill/uL (4.70-6.10)
[2020-07-01 04:42] LABS: Anion Gap 18 mmol/L (10-20); BUN (Urea Nitrogen) 95 mg/dL (8.4-25.7); Calc. Creatinine Clearance 13 mL/min (70-130); Calcium 9.2 mg/dL (7.8-10.44); Carbon Dioxide 26 mmol/L (23-31); Chloride 92 mmol/L (98-107); Glucose 182 mg/dL (80-115); Sodium 132 mmol/L (136-145)
[2020-07-01] MEDS: Mometasone 200 MCG/Formoterol 5 MCG 120 PUFF INHALER INH SCH ×2 (05:01→18:45)
[2020-07-01] MEDS: Metoclopramide HCl 10 MG/2 ML VIAL IVP SCH ×3 (06:39→21:01)
[2020-07-01] MEDS: HumaLOG 300 UNITS/3 ML VIAL SC PRN ×3 (06:39→16:36)
[2020-07-01] MEDS: Dexamethasone 4 mg/ml Vial SLOW IVP SCH (08:19)
[2020-07-01] MEDS: Aspirin Chewable 81 MG TAB PER TUBE SCH (08:19)
[2020-07-01] MEDS: Pantoprazole 40 MG VIAL IVP SCH ×2 (08:19→20:56)
[2020-07-01] MEDS: Heparin 5,000 UNITS/ML VIAL SC SCH ×2 (08:19→20:55)
[2020-07-01] MEDS: Lorazepam 2 MG/ML VIAL SLOW IVP PRN (09:27)
[2020-07-01] MEDS: Metoprolol Tartrate 25 MG TAB PO SCH (09:36)
[2020-07-01] MEDS ORDERED: Heparin 10,000 UNITS/ 10 ML VIAL ONE ×2 (09:45→16:00)
[2020-07-01] MEDS ORDERED: Activase 2 MG VIAL CATH SCH (11:30)
[2020-07-01] MEDS: Fentanyl CADD 100 ML IV SCH (13:52)
[2020-07-02] MEDS: Albuterol 200 PUFF (6.7GM INHALER) INH SCH ×5 (00:30→23:19)
[2020-07-02] MEDS: Metoprolol Tartrate 25 MG TAB PO SCH ×3 (00:38→20:14)
[2020-07-02] MEDS: Propofol 1,000 MG/100 ML VIAL IV PRN ×2 (00:39→21:33)
[2020-07-02 05:01] LABS: #Basophils 0.1 thou/uL (0.0-0.2); #Eosinphils 0.1 thou/uL (0.0-0.7); #Lymphocytes 1.1 thou/uL (1.20-3.40); #Monocytes 1.1 thou/uL (0.11-0.59); #Neutrophils 9.6 thou/uL (1.40-6.50); %Basophils 0.6 % (0.0-1.0); %Eosinophils 0.7 % (0.0-10.0); %Neutrophils 80.8 % (42.0-75.0); Hemoglobin 8.1 g/dL (14.0-18.0); Mean Corpuscular HGB CONC 33.2 g/dL (32.0-36.0); Mean Corpuscular Hemoglobin 29.2 pg (27.0-31.0); Mean Corpuscular Volume 87.9 fL (78.0-98.0); Mean Platelet Volume 8.2 fL (7.4-10.4); Platelet Count 347 thou/uL (130-400); RBC Distribution Width 17.1 % (11.5-14.5); Red Blood Cell (RBC) Count 2.78 mill/uL (4.70-6.10); White Blood Cell (WBC) Count 11.9 thou/uL (4.8-10.8)
[2020-07-02 05:21] LABS: Anion Gap 19 mmol/L (10-20); BUN (Urea Nitrogen) 50 mg/dL (8.4-25.7); Calc. Creatinine Clearance 23 mL/min (70-130); Calcium 8.7 mg/dL (7.8-10.44); Carbon Dioxide 25 mmol/L (23-31); Chloride 97 mmol/L (98-107); Glucose 172 mg/dL (80-115); Potassium 3.6 mmol/L (3.5-5.1); Sodium 137 mmol/L (136-145)
[2020-07-02] MEDS: Metoclopramide HCl 10 MG/2 ML VIAL IVP SCH ×3 (06:10→21:32)
[2020-07-02] MEDS: HumaLOG 300 UNITS/3 ML VIAL SC PRN ×3 (06:11→16:45)
[2020-07-02] MEDS: Mometasone 200 MCG/Formoterol 5 MCG 120 PUFF INHALER INH SCH ×2 (08:33→18:21)
[2020-07-02] MEDS: Pantoprazole 40 MG VIAL IVP SCH (08:41)
[2020-07-02] MEDS: Heparin 5,000 UNITS/ML VIAL SC SCH ×2 (08:41→20:14)
[2020-07-02] MEDS: Dexamethasone 4 mg/ml Vial SLOW IVP SCH (08:45)
[2020-07-02] MEDS: Aspirin Chewable 81 MG TAB PER TUBE SCH (08:46)
[2020-07-02 09:29] LABS: Actual Bicarbonate (HCO3a) 27.1 mEq/L (22-28); CO2 Tension 44.6 mmHg (35.0-45.0); Calcium, Ionized (arterial) 1.11 mmol/L (1.12-1.30); Carboxyhemoglobin (COHb) 1.2 gm% (0.0-3.0); Hemoglobin (Hb) 8.5 g/dL (14.0-18.0); Potassium - ABG Lab 3.56 mmol/L (3.70-5.30)
[2020-07-02 09:35] LABS: O2 Tension (PaO2), arterial 54.3 mmHg (> 80.0); Puncture Site LRA
[2020-07-02] MEDS: EPOETIN ALFA-EPBX (ESRD) 4,000 UNIT/ML VIAL SC SCH (09:55)
[2020-07-02] MEDS ORDERED: Fentanyl CADD 100 ML ONE (19:20)
[2020-07-02] MEDS: Acetaminophen 325 MG TAB PO PRN (19:56)
[2020-07-02] MEDS: Pantoprazole 40 MG GRANULES PACKET PER TUBE SCH (20:14)
[2020-07-03] MEDS: HumaLOG 300 UNITS/3 ML VIAL SC PRN ×2 (04:02→16:48)
[2020-07-03] MEDS: Propofol 1,000 MG/100 ML VIAL IV PRN ×3 (04:22→21:25)
[2020-07-03 04:42] LABS: #Basophils 0.1 thou/uL (0.0-0.2); #Eosinphils 0.1 thou/uL (0.0-0.7); #Lymphocytes 0.9 thou/uL (1.20-3.40); #Monocytes 1.4 thou/uL (0.11-0.59); #Neutrophils 15.4 thou/uL (1.40-6.50); %Basophils 0.5 % (0.0-1.0); %Eosinophils 0.3 % (0.0-10.0); %Monocytes 7.8 % (0.0-10.0); %Neutrophils 86.3 % (42.0-75.0); Hemoglobin 8.3 g/dL (14.0-18.0); Mean Corpuscular HGB CONC 32.9 g/dL (32.0-36.0); Mean Corpuscular Hemoglobin 29.2 pg (27.0-31.0); Mean Corpuscular Volume 88.6 fL (78.0-98.0); Mean Platelet Volume 8.1 fL (7.4-10.4); Platelet Count 392 thou/uL (130-400); RBC Distribution Width 17.6 % (11.5-14.5); Red Blood Cell (RBC) Count 2.86 mill/uL (4.70-6.10); White Blood Cell (WBC) Count 17.8 thou/uL (4.8-10.8)
[2020-07-03 04:50] LABS: Albumin 3.2 g/dL (3.4-4.8); Phosphorus 3.5 mg/dL (2.3-4.7)
[2020-07-03 04:57] LABS: Anion Gap 16 mmol/L (10-20); BUN (Urea Nitrogen) 70 mg/dL (8.4-25.7); Calc. Creatinine Clearance 17 mL/min (70-130); Calcium 9.1 mg/dL (7.8-10.44); Carbon Dioxide 27 mmol/L (23-31); Chloride 95 mmol/L (98-107); Glucose 185 mg/dL (80-115); Potassium 3.8 mmol/L (3.5-5.1); Sodium 134 mmol/L (136-145)
[2020-07-03] MEDS: Metoclopramide HCl 10 MG/2 ML VIAL IVP SCH ×3 (05:53→22:49)
[2020-07-03] MEDS: Pantoprazole 40 MG GRANULES PACKET PER TUBE SCH ×2 (07:54→21:26)
[2020-07-03] MEDS: Aspirin Chewable 81 MG TAB PER TUBE SCH (07:54)
[2020-07-03] MEDS: predniSONE 20 MG TAB PO SCH (07:55)
[2020-07-03] MEDS: Albuterol 200 PUFF (6.7GM INHALER) INH SCH ×4 (07:55→23:46)
[2020-07-03] MEDS: Heparin 5,000 UNITS/ML VIAL SC SCH ×2 (07:55→21:25)
[2020-07-03] MEDS: Metoprolol Tartrate 25 MG TAB PO SCH ×2 (07:55→21:25)
[2020-07-03] MEDS: Mometasone 200 MCG/Formoterol 5 MCG 120 PUFF INHALER INH SCH ×2 (07:55→18:25)
[2020-07-03] MEDS ORDERED: Albumin 25% 25 GM/100 ML BOT IVPB SCH (08:26)
[2020-07-03] MEDS ORDERED: EPOETIN ALFA-EPBX (ESRD) 4,000 UNIT/ML VIAL SC SCH (08:34)
[2020-07-03] MEDS ORDERED: Iron Sucrose Complex 100 MG in Sodium Chloride 0.9% 100 ML IVPB SCH (09:00)
[2020-07-03] MEDS ORDERED: Iron, Sodium Ferric Gluconate 125 MG in Sodium Chloride 0.9% 100 ML IVPB SCH (10:00)
[2020-07-03] MEDS ORDERED: Heparin 10,000 UNITS/ 10 ML VIAL ONE ×2 (10:15→16:00)
[2020-07-03] MEDS ORDERED: Activase 2 MG VIAL CATH SCH (11:00)
[2020-07-03] MEDS ORDERED: Sterile Water 10 ML VIAL IVP SCH (11:00)
[2020-07-04] MEDS: Acetaminophen 325 MG TAB PO PRN (04:14)
[2020-07-04] MEDS: Metoclopramide HCl 10 MG/2 ML VIAL IVP SCH ×4 (05:45→21:11)
[2020-07-04] MEDS: Mometasone 200 MCG/Formoterol 5 MCG 120 PUFF INHALER INH SCH ×2 (07:22→18:58)
[2020-07-04] MEDS: Albuterol 200 PUFF (6.7GM INHALER) INH SCH ×4 (07:22→23:34)
[2020-07-04] MEDS ORDERED: Fentanyl CADD 100 ML ONE (08:01)
[2020-07-04] MEDS: Pantoprazole 40 MG GRANULES PACKET PER TUBE SCH ×2 (08:16→21:11)
[2020-07-04] MEDS: Metoprolol Tartrate 25 MG TAB PO SCH ×2 (08:16→21:11)
[2020-07-04] MEDS: Aspirin Chewable 81 MG TAB PER TUBE SCH (08:16)
[2020-07-04] MEDS: predniSONE 20 MG TAB PO SCH (08:17)
[2020-07-04] MEDS: Propofol 1,000 MG/100 ML VIAL IV PRN (08:17)
[2020-07-04] MEDS: Heparin 5,000 UNITS/ML VIAL SC SCH ×2 (08:18→09:18)
[2020-07-04] MEDS: EPOETIN ALFA-EPBX (ESRD) 3,000 UNIT/ML VIAL SC SCH (09:23)
[2020-07-04] MEDS: EPOETIN ALFA-EPBX (ESRD) 2,000 UNIT/ML VIAL SC SCH (09:23)
[2020-07-04] MEDS ORDERED: Enoxaparin Sodium 80 MG/0.8 ML SYRINGE SC SCH (10:30)
[2020-07-04] MEDS: HumaLOG 300 UNITS/3 ML VIAL SC PRN ×2 (11:01→17:01)
[2020-07-04 12:34] LABS: #Basophils 0.1 thou/uL (0.0-0.2); #Lymphocytes 0.5 thou/uL (1.20-3.40); #Monocytes 0.9 thou/uL (0.11-0.59); #Neutrophils 8.8 thou/uL (1.40-6.50); %Basophils 0.8 % (0.0-1.0); %Eosinophils 0.1 % (0.0-10.0); %Monocytes 8.3 % (0.0-10.0); %Neutrophils 85.8 % (42.0-75.0); Hemoglobin 7.6 g/dL (14.0-18.0); Mean Corpuscular HGB CONC 32.3 g/dL (32.0-36.0); Mean Platelet Volume 7.7 fL (7.4-10.4); Platelet Count 328 thou/uL (130-400); RBC Distribution Width 17.6 % (11.5-14.5); Red Blood Cell (RBC) Count 2.62 mill/uL (4.70-6.10); White Blood Cell (WBC) Count 10.3 thou/uL (4.8-10.8)
[2020-07-04 12:56] LABS: Anion Gap 17 mmol/L (10-20); BUN (Urea Nitrogen) 45 mg/dL (8.4-25.7); Calc. Creatinine Clearance 26 mL/min (70-130); Calcium 8.8 mg/dL (7.8-10.44); Carbon Dioxide 24 mmol/L (23-31); Chloride 98 mmol/L (98-107); Glucose 234 mg/dL (80-115); Potassium 3.7 mmol/L (3.5-5.1); Sodium 135 mmol/L (136-145)
[2020-07-04] MEDS: Lorazepam 2 MG/ML VIAL SLOW IVP PRN (13:49)
[2020-07-05] MEDS: Propofol 1,000 MG/100 ML VIAL IV PRN (02:58)
[2020-07-05] MEDS: Metoclopramide HCl 10 MG/2 ML VIAL IVP SCH ×3 (05:05→21:07)
[2020-07-05 05:19] LABS: #Lymphocytes 0.8 thou/uL (1.20-3.40); #Neutrophils 6.1 thou/uL (1.40-6.50); %Basophils 0.5 % (0.0-1.0); %Eosinophils 0.4 % (0.0-10.0); %Lymphocytes 9.5 % (21.0-51.0); %Monocytes 12.4 % (0.0-10.0); %Neutrophils 77.1 % (42.0-75.0); Hemoglobin 7.8 g/dL (14.0-18.0); Mean Corpuscular HGB CONC 32.1 g/dL (32.0-36.0); Mean Corpuscular Hemoglobin 29.1 pg (27.0-31.0); Mean Corpuscular Volume 90.6 fL (78.0-98.0); Mean Platelet Volume 8.1 fL (7.4-10.4); Platelet Count 357 thou/uL (130-400); RBC Distribution Width 17.6 % (11.5-14.5); Red Blood Cell (RBC) Count 2.68 mill/uL (4.70-6.10); White Blood Cell (WBC) Count 7.9 thou/uL (4.8-10.8)
[2020-07-05 05:44] LABS: Anion Gap 16 mmol/L (10-20); BUN (Urea Nitrogen) 59 mg/dL (8.4-25.7); Calc. Creatinine Clearance 19 mL/min (70-130); Calcium 9.1 mg/dL (7.8-10.44); Carbon Dioxide 26 mmol/L (23-31); Chloride 97 mmol/L (98-107); Glucose 215 mg/dL (80-115); Potassium 4.1 mmol/L (3.5-5.1); Sodium 135 mmol/L (136-145)
[2020-07-05] MEDS: Aspirin Chewable 81 MG TAB PER TUBE SCH (07:36)
[2020-07-05] MEDS: Pantoprazole 40 MG GRANULES PACKET PER TUBE SCH ×2 (07:37→20:15)
[2020-07-05] MEDS: predniSONE 20 MG TAB PO SCH (07:37)
[2020-07-05] MEDS: Metoprolol Tartrate 25 MG TAB PO SCH ×2 (07:37→20:15)
[2020-07-05] MEDS: Albuterol 200 PUFF (6.7GM INHALER) INH SCH ×3 (08:19→18:45)
[2020-07-05] MEDS: Mometasone 200 MCG/Formoterol 5 MCG 120 PUFF INHALER INH SCH ×2 (08:20→18:46)
[2020-07-05] MEDS ORDERED: Enoxaparin Sodium 80 MG/0.8 ML SYRINGE SC SCH (09:00)
[2020-07-05] MEDS: HumaLOG 300 UNITS/3 ML VIAL SC PRN ×2 (11:00→21:24)
[2020-07-05] MEDS ORDERED: Heparin 10,000 UNITS/ 10 ML VIAL ONE (11:10)
[2020-07-05] MEDS ORDERED: Albumin 25% 25 GM/100 ML BOT IVPB ONE (11:28)
[2020-07-05] MEDS ORDERED: Fentanyl CADD 100 ML ONE (14:14)
[2020-07-05] MEDS: Apixaban 2.5 MG TAB PO SCH (20:15)
[2020-07-06] MEDS: Albuterol 200 PUFF (6.7GM INHALER) INH SCH ×5 (00:08→23:36)
[2020-07-06] MEDS: Propofol 1,000 MG/100 ML VIAL IV PRN (00:29)
[2020-07-06 04:44] LABS: Anion Gap 17 mmol/L (10-20); BUN (Urea Nitrogen) 37 mg/dL (8.4-25.7); Calc. Creatinine Clearance 27 mL/min (70-130); Calcium 8.7 mg/dL (7.8-10.44); Carbon Dioxide 23 mmol/L (23-31); Chloride 98 mmol/L (98-107); Glucose 193 mg/dL (80-115); Potassium 4.4 mmol/L (3.5-5.1); Sodium 134 mmol/L (136-145)
[2020-07-06] MEDS: HumaLOG 300 UNITS/3 ML VIAL SC PRN ×4 (04:47→20:57)
[2020-07-06 05:07] LABS: Anisocytosis SLIGHT = 6-15 cells (100X) (0-5/hpf); Band 14 % (5-11); Eosinophils 1 % (0-10); Lymphocytes 19 % (21-51); MDiff Complete? YES; Mean Corpuscular HGB CONC 32.3 g/dL (32.0-36.0); Mean Corpuscular Volume 92.8 fL (78.0-98.0); Mean Platelet Volume 7.8 fL (7.4-10.4); Metamyelocyte 2 % (0-0); Monocytes 21 % (0-10); Myelocyte 2 % (0-0); Neutrophil 41 % (42-75); Nucleated RBC 7 % (0); Platelet Count 299 thou/uL (130-400); RBC Distribution Width 17.6 % (11.5-14.5); Red Blood Cell (RBC) Count 2.65 mill/uL (4.70-6.10); White Blood Cell (WBC) Count 8.6 thou/uL (4.8-10.8)
[2020-07-06] MEDS: Metoclopramide HCl 10 MG/2 ML VIAL IVP SCH (05:46)
[2020-07-06] MEDS: Mometasone 200 MCG/Formoterol 5 MCG 120 PUFF INHALER INH SCH (06:31)
[2020-07-06] MEDS: Aspirin Chewable 81 MG TAB PER TUBE SCH (08:06)
[2020-07-06] MEDS: Metoprolol Tartrate 25 MG TAB PO SCH ×2 (08:06→20:51)
[2020-07-06] MEDS: Apixaban 2.5 MG TAB PO SCH ×2 (08:06→20:51)
[2020-07-06] MEDS: EPOETIN ALFA-EPBX (ESRD) 2,000 UNIT/ML VIAL SC SCH (08:06)
[2020-07-06] MEDS: EPOETIN ALFA-EPBX (ESRD) 3,000 UNIT/ML VIAL SC SCH (08:06)
[2020-07-06] MEDS: predniSONE 20 MG TAB PO SCH (08:06)
[2020-07-06] MEDS: Pantoprazole 40 MG GRANULES PACKET PER TUBE SCH ×2 (08:06→20:51)
[2020-07-06] MEDS ORDERED: Fluconazole In NaCl,Iso-Osm 200 MG in Premix Bag 1 BAG IVPB SCH (08:45)
[2020-07-06] MEDS ORDERED: Ivermectin 3 MG TAB PO SCH (09:00)
[2020-07-06] MEDS ORDERED: Refresh Lacri-lube Opth Oint 7 GM TUBE EA EYE PRN (10:57)
[2020-07-06] MEDS: clonazePAM 0.5 MG TAB PO SCH ×2 (11:09→20:51)
[2020-07-06] MEDS: Budesonide 0.5 MG/2 ML NEB NEB SCH (18:54)
[2020-07-07] MEDS: Acetaminophen 325 MG TAB PO PRN ×2 (01:34→04:57)
[2020-07-07] MEDS: HumaLOG 300 UNITS/3 ML VIAL SC PRN ×4 (04:31→23:58)
[2020-07-07] MEDS: Albuterol 200 PUFF (6.7GM INHALER) INH SCH ×4 (06:21→23:08)
[2020-07-07] MEDS: Budesonide 0.5 MG/2 ML NEB NEB SCH ×2 (06:22→18:36)
[2020-07-07 07:18] LABS: Anion Gap 16 mmol/L (10-20); BUN (Urea Nitrogen) 67 mg/dL (8.4-25.7); Calc. Creatinine Clearance 18 mL/min (70-130); Calcium 9.1 mg/dL (7.8-10.44); Carbon Dioxide 26 mmol/L (23-31); Chloride 98 mmol/L (98-107); Glucose 267 mg/dL (80-115); Potassium 4.1 mmol/L (3.5-5.1); Sodium 136 mmol/L (136-145)
[2020-07-07 08:06] LABS: Band 32 % (5-11); Eosinophils 1 % (0-10); Hemoglobin 7.7 g/dL (14.0-18.0); Lymphocytes 9 % (21-51); MDiff Complete? YES; Mean Corpuscular HGB CONC 32.2 g/dL (32.0-36.0); Mean Corpuscular Hemoglobin 29.3 pg (27.0-31.0); Mean Corpuscular Volume 91.1 fL (78.0-98.0); Mean Platelet Volume 8.2 fL (7.4-10.4); Metamyelocyte 6 % (0-0); Monocytes 8 % (0-10); Myelocyte 4 % (0-0); Neutrophil 39 % (42-75); Platelet Count 351 thou/uL (130-400); RBC Distribution Width 17.9 % (11.5-14.5); Red Blood Cell (RBC) Count 2.64 mill/uL (4.70-6.10); White Blood Cell (WBC) Count 7.1 thou/uL (4.8-10.8)
[2020-07-07 08:15] LABS: Albumin 3.5 g/dL (3.4-4.8); Magnesium 2.4 mg/dL (1.6-2.6); Phosphorus 3.3 mg/dL (2.3-4.7)
[2020-07-07] MEDS: Metoprolol Tartrate 25 MG TAB PO SCH ×2 (08:47→21:08)
[2020-07-07] MEDS: Pantoprazole 40 MG GRANULES PACKET PER TUBE SCH ×2 (08:47→21:08)
[2020-07-07] MEDS: clonazePAM 0.5 MG TAB PO SCH ×2 (08:47→21:08)
[2020-07-07] MEDS: predniSONE 20 MG TAB PO SCH (08:47)
[2020-07-07] MEDS: Saccharomyces boulardii 250 MG CAP PO SCH (08:47)
[2020-07-07] MEDS: Apixaban 2.5 MG TAB PO SCH ×2 (08:47→21:25)
[2020-07-07] MEDS: Aspirin Chewable 81 MG TAB PER TUBE SCH (08:47)
[2020-07-07] MEDS: Refresh Lacri-lube Opth Oint 7 GM TUBE FS SCH (08:48)
[2020-07-07] MEDS: Fluconazole In NaCl,Iso-Osm 100 MG in Admixture Fee 1 EACH IVPB SCH (09:20)
[2020-07-07] MEDS ORDERED: Heparin 10,000 UNITS/ 10 ML VIAL ONE (11:13)
[2020-07-07] MEDS: Insulin Glargine 10 UNITS in Pre-Filled Syringe 1 EACH SC SCH (21:12)
[2020-07-08 04:38] LABS: Anion Gap 14 mmol/L (10-20); BUN (Urea Nitrogen) 46 mg/dL (8.4-25.7); Calc. Creatinine Clearance 26 mL/min (70-130); Calcium 8.4 mg/dL (7.8-10.44); Carbon Dioxide 30 mmol/L (23-31); Chloride 98 mmol/L (98-107); Glucose 205 mg/dL (80-115); Potassium 4.2 mmol/L (3.5-5.1); Sodium 138 mmol/L (136-145)
[2020-07-08] MEDS: Acetaminophen 325 MG TAB PO PRN (05:20)
[2020-07-08] MEDS: HumaLOG 300 UNITS/3 ML VIAL SC PRN ×3 (05:20→16:24)
[2020-07-08 06:14] LABS: Anisocytosis SLIGHT = 6-15 cells (100X) (0-5/hpf); Band 33 % (5-11); Eosinophils 2 % (0-10); Hemoglobin 7.7 g/dL (14.0-18.0); Lymphocytes 8 % (21-51); MDiff Complete? YES; Mean Corpuscular HGB CONC 32.3 g/dL (32.0-36.0); Mean Corpuscular Hemoglobin 30.1 pg (27.0-31.0); Mean Corpuscular Volume 93.2 fL (78.0-98.0); Mean Platelet Volume 8.1 fL (7.4-10.4); Metamyelocyte 1 % (0-0); Monocytes 13 % (0-10); Myelocyte 6 % (0-0); Neutrophil 36 % (42-75); Nucleated RBC 6 % (0); Platelet Count 274 thou/uL (130-400); Polychromasia SLIGHT = 2-3 cells (100X) (0-2/hpf); RBC Distribution Width 18.4 % (11.5-14.5); Red Blood Cell (RBC) Count 2.55 mill/uL (4.70-6.10); White Blood Cell (WBC) Count 8.1 thou/uL (4.8-10.8)
[2020-07-08] MEDS: Albuterol 200 PUFF (6.7GM INHALER) INH SCH ×3 (07:23→18:17)
[2020-07-08] MEDS: Budesonide 0.5 MG/2 ML NEB NEB SCH ×2 (07:35→18:17)
[2020-07-08] MEDS: Pantoprazole 40 MG GRANULES PACKET PER TUBE SCH ×2 (08:22→21:07)
[2020-07-08] MEDS: clonazePAM 0.5 MG TAB PO SCH ×2 (08:22→21:07)
[2020-07-08] MEDS: Aspirin Chewable 81 MG TAB PER TUBE SCH (08:22)
[2020-07-08] MEDS: Metoprolol Tartrate 25 MG TAB PO SCH (08:22)
[2020-07-08] MEDS: Apixaban 2.5 MG TAB PO SCH ×2 (08:22→21:07)
[2020-07-08] MEDS: Insulin Glargine 10 UNITS in Pre-Filled Syringe 1 EACH SC SCH ×2 (08:22→21:11)
[2020-07-08] MEDS: predniSONE 20 MG TAB PO SCH (08:22)
[2020-07-08] MEDS: Fluconazole In NaCl,Iso-Osm 100 MG in Admixture Fee 1 EACH IVPB SCH (08:22)
[2020-07-08] MEDS: Saccharomyces boulardii 250 MG CAP PO SCH (08:22)
[2020-07-08] MEDS: Refresh Lacri-lube Opth Oint 7 GM TUBE FS SCH (08:24)
[2020-07-08] MEDS ORDERED: Albumin 5% 0 ML ONE (11:14)
[2020-07-08] MEDS ORDERED: Albumin 25% 25 GM/100 ML BOT IVPB ONE (11:30)
[2020-07-08] MEDS: Fluconazole 100 MG TAB PO SCH (11:38)
[2020-07-08] MEDS ORDERED: Sodium Chloride 0.9% 500 ML IV SCH (11:45)
[2020-07-08 12:11] LABS: Actual Bicarbonate (HCO3a) 27.7 mEq/L (22-28); Base Excess (BEa) -0.9 mEq/L (-2.0 to +3.0); Calcium, Ionized (arterial) 1.15 mmol/L (1.12-1.30); Carboxyhemoglobin (COHb) 1.7 gm% (0.0-3.0); Hemoglobin (Hb) 7.9 g/dL (14.0-18.0); Potassium - ABG Lab 4.64 mmol/L (3.70-5.30)
[2020-07-08 12:15] LABS: CO2 Tension 73.4 mmHg (35.0-45.0); pH, Arterial 7.19 (7.35-7.45)
[2020-07-08 12:16] LABS: O2 Tension (PaO2), arterial 43.9 mmHg (> 80.0); Puncture Site RBA
[2020-07-08] MEDS ORDERED: Norepinephrine 8 MG/0.9% NS 250 ML IVPB SCH (15:15)
[2020-07-08 15:51] LABS: Lactic Acid 0.9 mmol/L (0.5-2.2)
[2020-07-08] MEDS ORDERED: Albumin 5% 250 ML ONE (16:33)
[2020-07-08 20:16] LABS: Actual Bicarbonate (HCO3a) 26.4 mEq/L (22-28); Base Excess (BEa) -2.2 mEq/L (-2.0 to +3.0); CO2 Tension 71.8 mmHg (35.0-45.0); O2 Tension (PaO2), arterial 152.9 mmHg (> 80.0); pH, Arterial 7.18 (7.35-7.45)
[2020-07-08 20:17] LABS: Analyzer IN Cardio OR; Calcium, Ionized (arterial) 1.17 mmol/L (1.12-1.30); Carboxyhemoglobin (COHb) 2.1 gm% (0.0-3.0); Hemoglobin (Hb) 7.8 g/dL (14.0-18.0); Potassium - ABG Lab 4.58 mmol/L (3.70-5.30); Puncture Site LRA
[2020-07-09] MEDS: Albuterol 200 PUFF (6.7GM INHALER) INH SCH ×4 (00:01→18:30)
[2020-07-09 05:20] LABS: Anion Gap 17 mmol/L (10-20); BUN (Urea Nitrogen) 80 mg/dL (8.4-25.7); Calc. Creatinine Clearance 18 mL/min (70-130); Calcium 8.6 mg/dL (7.8-10.44); Carbon Dioxide 26 mmol/L (23-31); Chloride 98 mmol/L (98-107); Glucose 234 mg/dL (80-115); Potassium 4.6 mmol/L (3.5-5.1); Sodium 136 mmol/L (136-145)
[2020-07-09] MEDS: HumaLOG 300 UNITS/3 ML VIAL SC PRN ×4 (05:30→21:56)
[2020-07-09 05:45] LABS: Mean Corpuscular HGB CONC 31.4 g/dL (32.0-36.0); Mean Corpuscular Volume 92.5 fL (78.0-98.0); Mean Platelet Volume 8.8 fL (7.4-10.4); Platelet Count 309 thou/uL (130-400); RBC Distribution Width 18.4 % (11.5-14.5); Red Blood Cell (RBC) Count 2.43 mill/uL (4.70-6.10); White Blood Cell (WBC) Count 7.7 thou/uL (4.8-10.8)
[2020-07-09 05:46] LABS: Anisocytosis SLIGHT = 6-15 cells (100X) (0-5/hpf); Band 34 % (5-11); Lymphocytes 12 % (21-51); MDiff Complete? YES; Metamyelocyte 6 % (0-0); Monocytes 6 % (0-10); Myelocyte 10 % (0-0); Neutrophil 32 % (42-75); Nucleated RBC 8 % (0); Platelet Morphology Comment Appears Adequate; Polychromasia SLIGHT = 2-3 cells (100X) (0-2/hpf)
[2020-07-09] MEDS: Budesonide 0.5 MG/2 ML NEB NEB SCH ×2 (06:33→18:30)
[2020-07-09] MEDS: Aspirin Chewable 81 MG TAB PER TUBE SCH (08:49)
[2020-07-09] MEDS: EPOETIN ALFA-EPBX (ESRD) 2,000 UNIT/ML VIAL SC SCH (08:49)
[2020-07-09] MEDS: Apixaban 2.5 MG TAB PO SCH ×2 (08:49→21:50)
[2020-07-09] MEDS: predniSONE 20 MG TAB PO SCH (08:49)
[2020-07-09] MEDS: clonazePAM 0.5 MG TAB PO SCH ×2 (08:49→21:50)
[2020-07-09] MEDS: Fluconazole 100 MG TAB PO SCH (08:50)
[2020-07-09] MEDS: Insulin Glargine 10 UNITS in Pre-Filled Syringe 1 EACH SC SCH ×2 (08:50→21:50)
[2020-07-09] MEDS: EPOETIN ALFA-EPBX (ESRD) 3,000 UNIT/ML VIAL SC SCH (08:50)
[2020-07-09] MEDS: Pantoprazole 40 MG GRANULES PACKET PER TUBE SCH (08:50)
[2020-07-09] MEDS: Refresh Lacri-lube Opth Oint 7 GM TUBE FS SCH (08:51)
[2020-07-09] MEDS: Saccharomyces boulardii 250 MG CAP PO SCH (08:51)
[2020-07-09] MEDS ORDERED: Heparin 10,000 UNITS/ 10 ML VIAL ONE (09:04)
[2020-07-09 10:08] LABS: Actual Bicarbonate (HCO3a) 26.6 mEq/L (22-28); Base Excess (BEa) -1.3 mEq/L (-2.0 to +3.0); Calcium, Ionized (arterial) 1.19 mmol/L (1.12-1.30); Carboxyhemoglobin (COHb) 1.4 gm% (0.0-3.0); Hemoglobin (Hb) 7.6 g/dL (14.0-18.0); O2 Tension (PaO2), arterial 106.5 mmHg (> 80.0); Potassium - ABG Lab 4.22 mmol/L (3.70-5.30)
[2020-07-09 10:10] LABS: pH, Arterial 7.23 (7.35-7.45)
[2020-07-09 10:11] LABS: CO2 Tension 65.7 mmHg (35.0-45.0); Puncture Site LRA
[2020-07-09 10:12] LABS: ALV-art Gradient 203.525 mmHg (0-20)
[2020-07-09] MEDS: Acetaminophen 325 MG TAB PO PRN (14:37)
[2020-07-09] MEDS: Morphine 4 MG/ML VIAL SLOW IVP PRN (15:31)
[2020-07-09 15:56] LABS: Hep B Surf Ag Non-Reactive S/CO (NonReactive)
[2020-07-09 15:57] LABS: HBSAg Index 0.26 S/CO (0-0.99)
[2020-07-10] MEDS: Albuterol 200 PUFF (6.7GM INHALER) INH SCH ×4 (00:45→16:47)
[2020-07-10 04:56] LABS: Anion Gap 14 mmol/L (10-20); BUN (Urea Nitrogen) 50 mg/dL (8.4-25.7); Calc. Creatinine Clearance 30 mL/min (70-130); Calcium 8.2 mg/dL (7.8-10.44); Carbon Dioxide 28 mmol/L (23-31); Chloride 99 mmol/L (98-107); Glucose 234 mg/dL (80-115); Potassium 4.3 mmol/L (3.5-5.1); Sodium 137 mmol/L (136-145)
[2020-07-10 04:57] LABS: Hemoglobin 8.2 g/dL (14.0-18.0); Mean Corpuscular HGB CONC 31.5 g/dL (32.0-36.0); Mean Platelet Volume 8.4 fL (7.4-10.4); Platelet Count 280 thou/uL (130-400); Red Blood Cell (RBC) Count 2.74 mill/uL (4.70-6.10)
[2020-07-10] MEDS: HumaLOG 300 UNITS/3 ML VIAL SC PRN ×4 (05:25→21:17)
[2020-07-10 06:09] LABS: Band 32 % (5-11); Lymphocytes 11 % (21-51); MDiff Complete? YES; Monocytes 8 % (0-10); Neutrophil 49 % (42-75)
[2020-07-10] MEDS: Budesonide 0.5 MG/2 ML NEB NEB SCH ×2 (06:28→16:51)
[2020-07-10] MEDS: Acetaminophen 325 MG TAB PO PRN (07:35)
[2020-07-10] MEDS: predniSONE 20 MG TAB PO SCH (07:36)
[2020-07-10 08:55] LABS: Actual Bicarbonate (HCO3a) 28.3 mEq/L (22-28); Base Excess (BEa) 0.6 mEq/L (-2.0 to +3.0); Calcium, Ionized (arterial) 1.17 mmol/L (1.12-1.30); Carboxyhemoglobin (COHb) 1.5 gm% (0.0-3.0); O2 Tension (PaO2), arterial 70.5 mmHg (> 80.0); Potassium - ABG Lab 4.01 mmol/L (3.70-5.30); pH, Arterial 7.26 (7.35-7.45)
[2020-07-10 08:56] LABS: Puncture Site LRA
[2020-07-10] MEDS: Insulin Glargine 10 UNITS in Pre-Filled Syringe 1 EACH SC SCH (09:27)
[2020-07-10] MEDS: Fluconazole 100 MG TAB PO SCH (09:35)
[2020-07-10] MEDS: Apixaban 2.5 MG TAB PO SCH ×2 (09:36→21:13)
[2020-07-10] MEDS: Saccharomyces boulardii 250 MG CAP PO SCH (09:36)
[2020-07-10] MEDS: Aspirin Chewable 81 MG TAB PER TUBE SCH (09:36)
[2020-07-10] MEDS: Refresh Lacri-lube Opth Oint 7 GM TUBE FS SCH (09:36)
[2020-07-10] MEDS: clonazePAM 0.5 MG TAB PO SCH ×2 (09:36→21:13)
[2020-07-10] MEDS ORDERED: Polyethylene Glycol 3350 17 GM Packet PO PRN (19:52)
[2020-07-10] MEDS: Insulin Glargine 14 UNITS in Pre-Filled Syringe 1 EACH SC SCH (21:13)
[2020-07-11] MEDS: Acetaminophen 325 MG TAB PO PRN (00:04)
[2020-07-11] MEDS: Budesonide 0.5 MG/2 ML NEB NEB SCH ×2 (00:06→18:34)
[2020-07-11] MEDS: Albuterol 200 PUFF (6.7GM INHALER) INH SCH ×4 (00:10→18:34)
[2020-07-11 04:44] LABS: Anion Gap 16 mmol/L (10-20); BUN (Urea Nitrogen) 90 mg/dL (8.4-25.7); Calc. Creatinine Clearance 20 mL/min (70-130); Calcium 8.4 mg/dL (7.8-10.44); Carbon Dioxide 26 mmol/L (23-31); Chloride 99 mmol/L (98-107); Glucose 215 mg/dL (80-115); Sodium 137 mmol/L (136-145)
[2020-07-11 05:06] LABS: #Basophils 0.1 thou/uL (0.0-0.2); #Lymphocytes 0.7 thou/uL (1.20-3.40); #Monocytes 0.7 thou/uL (0.11-0.59); #Neutrophils 5.2 thou/uL (1.40-6.50); %Basophils 0.9 % (0.0-1.0); %Eosinophils 0.4 % (0.0-10.0); %Lymphocytes 10.2 % (21.0-51.0); %Monocytes 11.2 % (0.0-10.0); %Neutrophils 77.4 % (42.0-75.0); Hemoglobin 8.4 g/dL (14.0-18.0); MDiff Complete? YES; Mean Corpuscular HGB CONC 31.5 g/dL (32.0-36.0); Mean Corpuscular Volume 95.2 fL (78.0-98.0); Mean Platelet Volume 8.9 fL (7.4-10.4); Platelet Count 282 thou/uL (130-400); Polychromasia SLIGHT = 2-3 cells (100X) (0-2/hpf); RBC Distribution Width 18.1 % (11.5-14.5); Red Blood Cell (RBC) Count 2.79 mill/uL (4.70-6.10); White Blood Cell (WBC) Count 6.7 thou/uL (4.8-10.8)
[2020-07-11] MEDS: HumaLOG 300 UNITS/3 ML VIAL SC PRN ×2 (05:09→16:00)
[2020-07-11] MEDS ORDERED: Heparin 10,000 UNITS/ 10 ML VIAL ONE ×2 (08:33→12:35)
[2020-07-11] MEDS ORDERED: VANCOMYCIN 1.25 GM/250 ML BAG 1.25 GM in Premix Bag 1 BAG IVPB SCH (09:30)
[2020-07-11] MEDS ORDERED: Ondansetron PF 4 MG/2 ML Vial ONE (09:55)
[2020-07-11] MEDS ORDERED: Rocuronium Bromide 10 MG/ML (10ML VIAL) ONE (09:55)
[2020-07-11] MEDS ORDERED: PHENYLEPHRINE-NS 100 MCG/ML 10 ML SYRINGE ONE (09:55)
[2020-07-11] MEDS: predniSONE 20 MG TAB PO SCH (09:58)
[2020-07-11] MEDS: Saccharomyces boulardii 250 MG CAP PO SCH (09:58)
[2020-07-11] MEDS: Aspirin Chewable 81 MG TAB PER TUBE SCH (09:58)
[2020-07-11] MEDS: Docusate 100 MG CAP PER TUBE SCH ×2 (09:59→21:43)
[2020-07-11] MEDS: clonazePAM 0.5 MG TAB PO SCH ×2 (09:59→21:44)
[2020-07-11] MEDS: Refresh Lacri-lube Opth Oint 7 GM TUBE FS SCH (09:59)
[2020-07-11] MEDS: Fluconazole 100 MG TAB PO SCH (10:09)
[2020-07-11] MEDS: Apixaban 2.5 MG TAB PO SCH ×2 (10:09→21:43)
[2020-07-11] MEDS: EPOETIN ALFA-EPBX (ESRD) 2,000 UNIT/ML VIAL SC SCH (10:21)
[2020-07-11] MEDS: EPOETIN ALFA-EPBX (ESRD) 3,000 UNIT/ML VIAL SC SCH (10:22)
[2020-07-11] MEDS: Insulin Glargine 14 UNITS in Pre-Filled Syringe 1 EACH SC SCH ×2 (10:23→21:44)
[2020-07-11] MEDS ORDERED: Bupivacaine 0.25% HCL 30 ML VIAL ONE (12:35)
[2020-07-11] MEDS ORDERED: Lidocaine 1% w/Epinephrine 1:100K 20 ML VIAL ONE (12:35)
[2020-07-11] MEDS ORDERED: Sodium Chloride 0.9% 30 ML ONE (12:35)
[2020-07-11 13:04] LABS: Actual Bicarbonate (HCO3a) 26.1 mEq/L (22-28); Base Excess (BEa) -1.6 mEq/L (-2.0 to +3.0); CO2 Tension 59.1 mmHg (35.0-45.0); Calcium, Ionized (arterial) 1.18 mmol/L (1.12-1.30); Carboxyhemoglobin (COHb) 1.8 gm% (0.0-3.0); Potassium - ABG Lab 4.06 mmol/L (3.70-5.30); pH, Arterial 7.26 (7.35-7.45)
[2020-07-11 13:05] LABS: O2 Tension (PaO2), arterial 59.2 mmHg (> 80.0)
[2020-07-11 13:06] LABS: Puncture Site LRA
[2020-07-11 13:07] LABS: ALV-art Gradient 152.125 mmHg (0-20)
[2020-07-11] MEDS ORDERED: Midazolam HCl 2 mg/2 ml Vial ONE (13:33)
[2020-07-11] MEDS ORDERED: Fentanyl 100 MCG/2 ML VIAL ONE (13:33)
[2020-07-12] MEDS: Albuterol 200 PUFF (6.7GM INHALER) INH SCH ×5 (00:13→23:35)
[2020-07-12 04:24] LABS: #Lymphocytes 0.7 thou/uL (1.20-3.40); #Monocytes 0.9 thou/uL (0.11-0.59); #Neutrophils 4.9 thou/uL (1.40-6.50); %Basophils 0.6 % (0.0-1.0); %Eosinophils 0.4 % (0.0-10.0); %Lymphocytes 10.3 % (21.0-51.0); %Monocytes 13.2 % (0.0-10.0); %Neutrophils 75.6 % (42.0-75.0); Hemoglobin 8.2 g/dL (14.0-18.0); Mean Corpuscular HGB CONC 32.1 g/dL (32.0-36.0); Mean Corpuscular Hemoglobin 30.2 pg (27.0-31.0); Mean Platelet Volume 8.8 fL (7.4-10.4); Platelet Count 264 thou/uL (130-400); RBC Distribution Width 18.3 % (11.5-14.5); Red Blood Cell (RBC) Count 2.73 mill/uL (4.70-6.10); White Blood Cell (WBC) Count 6.5 thou/uL (4.8-10.8)
[2020-07-12 04:34] LABS: Anion Gap 14 mmol/L (10-20); BUN (Urea Nitrogen) 47 mg/dL (8.4-25.7); Calc. Creatinine Clearance 32 mL/min (70-130); Carbon Dioxide 28 mmol/L (23-31); Chloride 100 mmol/L (98-107); Glucose 82 mg/dL (80-115); Potassium 4.3 mmol/L (3.5-5.1); Sodium 138 mmol/L (136-145)
[2020-07-12] MEDS: Budesonide 0.5 MG/2 ML NEB NEB SCH ×2 (06:58→19:11)
[2020-07-12] MEDS: Apixaban 2.5 MG TAB PO SCH ×2 (07:54→21:27)
[2020-07-12] MEDS: predniSONE 20 MG TAB PO SCH (07:54)
[2020-07-12] MEDS: Fluconazole 100 MG TAB PO SCH (07:54)
[2020-07-12] MEDS: Aspirin Chewable 81 MG TAB PER TUBE SCH (07:54)
[2020-07-12] MEDS: Docusate 100 MG CAP PER TUBE SCH ×2 (07:54→21:27)
[2020-07-12] MEDS: Refresh Lacri-lube Opth Oint 7 GM TUBE FS SCH (07:55)
[2020-07-12] MEDS: Saccharomyces boulardii 250 MG CAP PO SCH (07:55)
[2020-07-12] MEDS: clonazePAM 0.5 MG TAB PO SCH ×2 (07:55→21:27)
[2020-07-12] MEDS: Insulin Glargine 14 UNITS in Pre-Filled Syringe 1 EACH SC SCH ×2 (08:04→21:27)
[2020-07-12 09:20] LABS: Actual Bicarbonate (HCO3a) 27.1 mEq/L (22-28); Base Excess (BEa) 0.6 mEq/L (-2.0 to +3.0); CO2 Tension 53.8 mmHg (35.0-45.0); Calcium, Ionized (arterial) 1.12 mmol/L (1.12-1.30); Carboxyhemoglobin (COHb) 2.3 gm% (0.0-3.0); Hemoglobin (Hb) 8.6 g/dL (14.0-18.0); Potassium - ABG Lab 4.24 mmol/L (3.70-5.30); pH, Arterial 7.32 (7.35-7.45)
[2020-07-12 09:22] LABS: O2 Tension (PaO2), arterial 56.9 mmHg (> 80.0); Puncture Site LRA
[2020-07-12] MEDS: HumaLOG 300 UNITS/3 ML VIAL SC PRN (16:05)
[2020-07-12 20:07] LABS: Bacteria/HPF 3+ HPF (None Seen); Bilirubin Negative (Negative); Blood, Urine 3+ (Negative); Clarity Extra Turbid (Clear); Glucose, Urine (Dipstick) Normal (Negative); Ketone, Urine Negative (Negative); Leukocyte 500 Leu/uL (Negative); Nitrite Negative (Negative); Protein, Urine (Dipstick) 200 mg/dL (Neg-Trace); RBC/HPF Greater than 50 HPF (0-3); Renal Epithelial 0-3 HPF (None Seen); Specific Gravity, Urine 1.022 (1.002-1.036); Squamous Epithelial 0-3 HPF (0-3); Urobilinogen Normal mg/dL (Less than 2); WBC/HPF Greater than 50 HPF (0-3); Yeast-Budding 2+ HPF (None Seen); pH, Urine 5.5 (5.0-9.0)
[2020-07-13 04:18] LABS: #Lymphocytes 0.7 thou/uL (1.20-3.40); #Monocytes 0.9 thou/uL (0.11-0.59); #Neutrophils 5.3 thou/uL (1.40-6.50); %Basophils 0.3 % (0.0-1.0); %Eosinophils 0.5 % (0.0-10.0); %Lymphocytes 9.7 % (21.0-51.0); %Neutrophils 76.6 % (42.0-75.0); Mean Corpuscular Volume 93.8 fL (78.0-98.0); Mean Platelet Volume 8.9 fL (7.4-10.4); Platelet Count 283 thou/uL (130-400); RBC Distribution Width 18.4 % (11.5-14.5); Red Blood Cell (RBC) Count 2.67 mill/uL (4.70-6.10); White Blood Cell (WBC) Count 6.9 thou/uL (4.8-10.8)
[2020-07-13 04:33] LABS: Anion Gap 16 mmol/L (10-20); BUN (Urea Nitrogen) 74 mg/dL (8.4-25.7); Calc. Creatinine Clearance 22 mL/min (70-130); Calcium 8.4 mg/dL (7.8-10.44); Carbon Dioxide 26 mmol/L (23-31); Chloride 100 mmol/L (98-107); Glucose 127 mg/dL (80-115); Sodium 138 mmol/L (136-145)
[2020-07-13] MEDS: Albuterol 200 PUFF (6.7GM INHALER) INH SCH ×4 (06:07→23:05)
[2020-07-13] MEDS: Budesonide 0.5 MG/2 ML NEB NEB SCH ×2 (06:08→18:59)
[2020-07-13] MEDS: Apixaban 2.5 MG TAB PO SCH ×2 (09:43→21:07)
[2020-07-13] MEDS: Docusate Sodium 100 MG/10 ML UDCUP PER TUBE SCH ×2 (09:43→21:08)
[2020-07-13] MEDS: Pantoprazole 40 MG GRANULES PACKET PER TUBE SCH ×2 (09:43→21:08)
[2020-07-13] MEDS: Aspirin Chewable 81 MG TAB PER TUBE SCH (09:44)
[2020-07-13] MEDS: Insulin Glargine 14 UNITS in Pre-Filled Syringe 1 EACH SC SCH ×2 (09:44→21:08)
[2020-07-13] MEDS: Refresh Lacri-lube Opth Oint 7 GM TUBE FS SCH (09:44)
[2020-07-13] MEDS: clonazePAM 0.5 MG TAB PO SCH ×2 (09:44→21:07)
[2020-07-13] MEDS: Saccharomyces boulardii 250 MG CAP PO SCH (09:44)
[2020-07-13] MEDS: predniSONE 20 MG TAB PO SCH (09:44)
[2020-07-13] MEDS: Fluconazole 100 MG TAB PO SCH (09:44)
[2020-07-13] MEDS: Docusate 100 MG CAP PER TUBE SCH (10:21)
[2020-07-13] MEDS ORDERED: Heparin 10,000 UNITS/ 10 ML VIAL ONE (11:11)
[2020-07-13] MEDS ORDERED: Iopamidol-370 76% 500 ML 1 ML ONE (12:01)
[2020-07-13] MEDS: EPOETIN ALFA-EPBX (ESRD) 3,000 UNIT/ML VIAL SC SCH (14:44)
[2020-07-13] MEDS: EPOETIN ALFA-EPBX (ESRD) 2,000 UNIT/ML VIAL SC SCH (14:44)
[2020-07-13] MEDS: HumaLOG 300 UNITS/3 ML VIAL SC PRN (16:49)
[2020-07-13] MEDS: Morphine 4 MG/ML VIAL SLOW IVP PRN (21:06)
[2020-07-14] MEDS: Acetaminophen 325 MG TAB PO PRN ×2 (00:04→05:50)
[2020-07-14 04:00] LABS: #Eosinphils 0.1 thou/uL (0.0-0.7); #Lymphocytes 0.6 thou/uL (1.20-3.40); #Monocytes 0.8 thou/uL (0.11-0.59); #Neutrophils 4.7 thou/uL (1.40-6.50); %Basophils 0.6 % (0.0-1.0); %Eosinophils 1.2 % (0.0-10.0); %Monocytes 12.7 % (0.0-10.0); %Neutrophils 76.6 % (42.0-75.0); Hemoglobin 8.5 g/dL (14.0-18.0); Mean Corpuscular HGB CONC 31.8 g/dL (32.0-36.0); Mean Corpuscular Volume 94.4 fL (78.0-98.0); Platelet Count 308 thou/uL (130-400); RBC Distribution Width 18.1 % (11.5-14.5); Red Blood Cell (RBC) Count 2.82 mill/uL (4.70-6.10); White Blood Cell (WBC) Count 6.2 thou/uL (4.8-10.8)
[2020-07-14 04:14] LABS: Anion Gap 15 mmol/L (10-20); BUN (Urea Nitrogen) 41 mg/dL (8.4-25.7); Calc. Creatinine Clearance 32 mL/min (70-130); Calcium 8.2 mg/dL (7.8-10.44); Carbon Dioxide 28 mmol/L (23-31); Chloride 98 mmol/L (98-107); Glucose 167 mg/dL (80-115); Sodium 137 mmol/L (136-145)
[2020-07-14] MEDS: HumaLOG 300 UNITS/3 ML VIAL SC PRN ×3 (04:28→15:56)
[2020-07-14] MEDS: Budesonide 0.5 MG/2 ML NEB NEB SCH ×2 (06:53→18:51)
[2020-07-14] MEDS: Albuterol 200 PUFF (6.7GM INHALER) INH SCH ×3 (06:53→18:52)
[2020-07-14] MEDS: Aspirin Chewable 81 MG TAB PER TUBE SCH (08:46)
[2020-07-14] MEDS: Apixaban 2.5 MG TAB PO SCH ×2 (08:46→21:35)
[2020-07-14] MEDS: predniSONE 20 MG TAB PO SCH (08:46)
[2020-07-14] MEDS: Saccharomyces boulardii 250 MG CAP PO SCH (08:46)
[2020-07-14] MEDS: Pantoprazole 40 MG GRANULES PACKET PER TUBE SCH ×2 (08:46→21:35)
[2020-07-14] MEDS: Insulin Glargine 14 UNITS in Pre-Filled Syringe 1 EACH SC SCH ×2 (08:46→21:36)
[2020-07-14] MEDS: clonazePAM 0.5 MG TAB PO SCH ×2 (08:46→21:35)
[2020-07-14 13:49] LABS: Bilirubin Negative (Negative); Blood, Urine 2+ (Negative); Clarity Turbid (Clear); Glucose, Urine (Dipstick) 30 mg/dL (Negative); Ketone, Urine Negative (Negative); Leukocyte 500 Leu/uL (Negative); Nitrite Negative (Negative); Protein, Urine (Dipstick) 200 mg/dL (Neg-Trace); RBC/HPF Greater than 50 HPF (0-3); Specific Gravity, Urine 1.026 (1.002-1.036); Squamous Epithelial None Seen HPF (0-3); Urobilinogen Normal mg/dL (Less than 2); WBC/HPF Greater than 50 HPF (0-3)
[2020-07-14 13:57] LABS: Bacteria/HPF 1+ HPF (None Seen)
[2020-07-14] MEDS ORDERED: Pharmacy to Dose VANCOMYCIN AND MEROPENEM IVPB PRN (14:17)
[2020-07-14] MEDS ORDERED: Vancomycin HCl 250 MG in Sodium Chloride 0.9% 100 ML IVPB SCH (14:30)
[2020-07-14] MEDS ORDERED: Vancomycin 1 GM in Premix Bag 1 BAG IVPB SCH (14:30)
[2020-07-14] MEDS ORDERED: Vancomycin HCl 750 MG in Sodium Chloride 0.9% 250 ML 250 ML IVPB SCH (14:30)
[2020-07-14] MEDS ORDERED: Vancomycin HCl 500 MG in Sodium Chloride 0.9% 100 ML IVPB SCH (14:30)
[2020-07-14] MEDS ORDERED: VANCOMYCIN 1.25 GM/250 ML BAG 1.25 GM in Premix Bag 1 BAG IVPB SCH (14:30)
[2020-07-14] MEDS ORDERED: HOLD VANCOMYCIN FOR LEVEL >20 FS SCH (14:30)
[2020-07-14] MEDS: Refresh Lacri-lube Opth Oint 7 GM TUBE FS SCH (15:39)
[2020-07-14] MEDS: Docusate Sodium 100 MG/10 ML UDCUP PER TUBE SCH ×2 (15:39→21:36)
[2020-07-14] MEDS: MEROPENEM 1 GM/50 ML 1 GM in Premix Bag 1 BAG IVPB SCH (15:44)
[2020-07-14] MEDS: Micafungin 100 MG in Sodium Chloride 0.9% 100 ML IVPB SCH (16:26)
[2020-07-14] MEDS ORDERED: Meropenem 500 MG in Sodium Chloride 0.9% 100 ML IVPB SCH (21:00)
[2020-07-15] MEDS: Albuterol 200 PUFF (6.7GM INHALER) INH SCH ×4 (00:27→18:37)
[2020-07-15] MEDS: MEROPENEM 1 GM/50 ML 1 GM in Premix Bag 1 BAG IVPB SCH (03:55)
[2020-07-15 04:34] LABS: #Lymphocytes 0.5 thou/uL (1.20-3.40); #Monocytes 0.7 thou/uL (0.11-0.59); #Neutrophils 4.2 thou/uL (1.40-6.50); %Basophils 0.1 % (0.0-1.0); %Eosinophils 0.7 % (0.0-10.0); %Lymphocytes 9.4 % (21.0-51.0); %Monocytes 13.1 % (0.0-10.0); %Neutrophils 76.7 % (42.0-75.0); Hemoglobin 8.2 g/dL (14.0-18.0); Mean Corpuscular HGB CONC 31.7 g/dL (32.0-36.0); Mean Corpuscular Hemoglobin 30.2 pg (27.0-31.0); Mean Corpuscular Volume 95.3 fL (78.0-98.0); Mean Platelet Volume 9.2 fL (7.4-10.4); Platelet Count 329 thou/uL (130-400); RBC Distribution Width 18.3 % (11.5-14.5); Red Blood Cell (RBC) Count 2.71 mill/uL (4.70-6.10); White Blood Cell (WBC) Count 5.4 thou/uL (4.8-10.8)
[2020-07-15] MEDS: HumaLOG 300 UNITS/3 ML VIAL SC PRN ×3 (04:45→16:01)
[2020-07-15 04:50] LABS: Anion Gap 15 mmol/L (10-20); BUN (Urea Nitrogen) 65 mg/dL (8.4-25.7); Calc. Creatinine Clearance 26 mL/min (70-130); Calcium 8.4 mg/dL (7.8-10.44); Carbon Dioxide 27 mmol/L (23-31); Chloride 99 mmol/L (98-107); Glucose 204 mg/dL (80-115); Potassium 4.3 mmol/L (3.5-5.1); Sodium 137 mmol/L (136-145)
[2020-07-15] MEDS: Acetaminophen 325 MG TAB PO PRN (05:51)
[2020-07-15] MEDS: Budesonide 0.5 MG/2 ML NEB NEB SCH ×2 (07:24→18:37)
[2020-07-15 08:35] LABS: Vancomycin, Random 21.6 ug/mL (See Comment)
[2020-07-15] MEDS ORDERED: Vancomycin HCl 500 MG in Sodium Chloride 0.9% 100 ML IVPB SCH (09:00)
[2020-07-15] MEDS: Pantoprazole 40 MG GRANULES PACKET PER TUBE SCH ×2 (09:39→21:40)
[2020-07-15] MEDS: Insulin Glargine 14 UNITS in Pre-Filled Syringe 1 EACH SC SCH ×2 (09:39→21:40)
[2020-07-15] MEDS: predniSONE 20 MG TAB PO SCH (09:39)
[2020-07-15] MEDS: clonazePAM 0.5 MG TAB PO SCH (09:39)
[2020-07-15] MEDS: Aspirin Chewable 81 MG TAB PER TUBE SCH (09:39)
[2020-07-15] MEDS: Docusate Sodium 100 MG/10 ML UDCUP PER TUBE SCH ×2 (09:40→21:40)
[2020-07-15] MEDS: Refresh Lacri-lube Opth Oint 7 GM TUBE FS SCH (09:41)
[2020-07-15] MEDS: Saccharomyces boulardii 250 MG CAP PO SCH (09:41)
[2020-07-15] MEDS: Apixaban 2.5 MG TAB PO SCH ×2 (10:19→21:40)
[2020-07-15] MEDS ORDERED: Heparin 10,000 UNITS/ 10 ML VIAL ONE (11:07)
[2020-07-15 13:47] VITALS: BMI 21.8
[2020-07-15] MEDS: Micafungin 100 MG in Sodium Chloride 0.9% 100 ML IVPB SCH (17:39)
[2020-07-16] MEDS: Albuterol 200 PUFF (6.7GM INHALER) INH SCH ×4 (00:17→18:46)
[2020-07-16] MEDS: Acetaminophen 325 MG TAB PO PRN (01:47)
[2020-07-16 03:49] LABS: Band 5 % (5-11); Hemoglobin 8.2 g/dL (14.0-18.0); Lymphocytes 9 % (21-51); MDiff Complete? YES; Mean Corpuscular HGB CONC 32.2 g/dL (32.0-36.0); Mean Corpuscular Hemoglobin 30.4 pg (27.0-31.0); Mean Corpuscular Volume 94.5 fL (78.0-98.0); Monocytes 13 % (0-10); Neutrophil 71 % (42-75); Platelet Count 327 thou/uL (130-400); Platelet Morphology Comment Appears Adequate; RBC Distribution Width 18.4 % (11.5-14.5); Reactive Lymphocytes 2 % (0-10); Red Blood Cell (RBC) Count 2.71 mill/uL (4.70-6.10); White Blood Cell (WBC) Count 5.7 thou/uL (4.8-10.8)
[2020-07-16] MEDS: MEROPENEM 1 GM/50 ML 1 GM in Premix Bag 1 BAG IVPB SCH (03:55)
[2020-07-16 04:02] LABS: Anion Gap 15 mmol/L (10-20); BUN (Urea Nitrogen) 36 mg/dL (8.4-25.7); Calc. Creatinine Clearance 35 mL/min (70-130); Calcium 8.4 mg/dL (7.8-10.44); Carbon Dioxide 26 mmol/L (23-31); Chloride 101 mmol/L (98-107); Glucose 173 mg/dL (80-115); Potassium 4.2 mmol/L (3.5-5.1); Sodium 138 mmol/L (136-145)
[2020-07-16] MEDS: HumaLOG 300 UNITS/3 ML VIAL SC PRN ×3 (04:15→21:09)
[2020-07-16] MEDS: Budesonide 0.5 MG/2 ML NEB NEB SCH ×2 (06:56→18:41)
[2020-07-16] MEDS: Apixaban 2.5 MG TAB PO SCH ×2 (09:49→21:04)
[2020-07-16] MEDS: Saccharomyces boulardii 250 MG CAP PO SCH (09:50)
[2020-07-16] MEDS: Aspirin Chewable 81 MG TAB PER TUBE SCH (09:50)
[2020-07-16] MEDS: Pantoprazole 40 MG GRANULES PACKET PER TUBE SCH ×2 (09:50→21:04)
[2020-07-16] MEDS: predniSONE 20 MG TAB PO SCH (09:50)
[2020-07-16] MEDS: EPOETIN ALFA-EPBX (ESRD) 2,000 UNIT/ML VIAL SC SCH (10:05)
[2020-07-16] MEDS: EPOETIN ALFA-EPBX (ESRD) 3,000 UNIT/ML VIAL SC SCH (10:05)
[2020-07-16] MEDS: Insulin Glargine 14 UNITS in Pre-Filled Syringe 1 EACH SC SCH ×2 (10:18→21:04)
[2020-07-16] MEDS: Refresh Lacri-lube Opth Oint 7 GM TUBE FS SCH (10:50)
[2020-07-16] MEDS: Docusate Sodium 100 MG/10 ML UDCUP PER TUBE SCH ×2 (10:51→21:04)
[2020-07-16] MEDS: Micafungin 100 MG in Sodium Chloride 0.9% 100 ML IVPB SCH (16:18)
[2020-07-17] MEDS: Albuterol 200 PUFF (6.7GM INHALER) INH SCH ×4 (00:13→18:52)
[2020-07-17] MEDS: MEROPENEM 1 GM/50 ML 1 GM in Premix Bag 1 BAG IVPB SCH (02:25)
[2020-07-17 04:33] LABS: Anion Gap 15 mmol/L (10-20); BUN (Urea Nitrogen) 61 mg/dL (8.4-25.7); Calc. Creatinine Clearance 23 mL/min (70-130); Carbon Dioxide 28 mmol/L (23-31); Chloride 101 mmol/L (98-107); Glucose 168 mg/dL (80-115); Potassium 3.5 mmol/L (3.5-5.1); Sodium 140 mmol/L (136-145)
[2020-07-17 04:41] LABS: Band 10 % (5-11); Hemoglobin 8.4 g/dL (14.0-18.0); Hypochromia SLIGHT = 6-15 cells (100X) (0-5/hpf); Lymphocytes 6 % (21-51); MDiff Complete? YES; Mean Corpuscular HGB CONC 31.6 g/dL (32.0-36.0); Mean Corpuscular Hemoglobin 29.9 pg (27.0-31.0); Mean Corpuscular Volume 94.6 fL (78.0-98.0); Mean Platelet Volume 8.8 fL (7.4-10.4); Metamyelocyte 1 % (0-0); Monocytes 16 % (0-10); Neutrophil 67 % (42-75); Platelet Count 363 thou/uL (130-400); Platelet Morphology Comment Appears Adequate; RBC Distribution Width 18.3 % (11.5-14.5); Red Blood Cell (RBC) Count 2.82 mill/uL (4.70-6.10); White Blood Cell (WBC) Count 7.6 thou/uL (4.8-10.8)
[2020-07-17 05:25] LABS: ALT (SGPT) 15 U/L (8-55); AST (SGOT) 31 U/L (5-34); Alkaline Phosphatase 111 U/L (40-110); Bilirubin, Direct 0.2 mg/dL (0.1-0.3); Bilirubin, Total 0.4 mg/dL (0.2-1.2); Protein, Total 5.9 g/dL (5.8-8.1)
[2020-07-17] MEDS: Budesonide 0.5 MG/2 ML NEB NEB SCH ×2 (06:23→18:52)
[2020-07-17 07:38] LABS: Actual Bicarbonate (HCO3a) 28.6 mEq/L (22-28); Base Excess (BEa) 2.7 mEq/L (-2.0 to +3.0); CO2 Tension 51.2 mmHg (35.0-45.0); Calcium, Ionized (arterial) 1.23 mmol/L (1.12-1.30); Carboxyhemoglobin (COHb) 1.4 gm% (0.0-3.0); Hemoglobin (Hb) 9.3 g/dL (14.0-18.0); Potassium - ABG Lab 3.39 mmol/L (3.70-5.30); pH, Arterial 7.37 (7.35-7.45)
[2020-07-17 07:41] LABS: O2 Tension (PaO2), arterial 44.2 mmHg (> 80.0)
[2020-07-17 07:42] LABS: Puncture Site LRA
[2020-07-17] MEDS: Apixaban 2.5 MG TAB PO SCH ×2 (08:39→22:02)
[2020-07-17] MEDS: predniSONE 20 MG TAB PO SCH (08:39)
[2020-07-17] MEDS: Saccharomyces boulardii 250 MG CAP PO SCH (08:39)
[2020-07-17] MEDS: Aspirin Chewable 81 MG TAB PER TUBE SCH (08:39)
[2020-07-17] MEDS: Pantoprazole 40 MG GRANULES PACKET PER TUBE SCH ×2 (08:39→22:02)
[2020-07-17] MEDS: Refresh Lacri-lube Opth Oint 7 GM TUBE FS SCH (08:40)
[2020-07-17] MEDS: Docusate Sodium 100 MG/10 ML UDCUP PER TUBE SCH ×2 (08:41→22:11)
[2020-07-17] MEDS: Insulin Glargine 14 UNITS in Pre-Filled Syringe 1 EACH SC SCH ×2 (08:44→22:03)
[2020-07-17 09:37] LABS: Vancomycin, Random 9.8 ug/mL (See Comment)
[2020-07-17 10:00] LABS: HBSAB Concentration Less than 8.00 mIU/mL; Hep B Surf AB Non-Reactive (NonReactive); Hep B Surf Ag Non-Reactive S/CO (NonReactive)
[2020-07-17] MEDS ORDERED: Heparin 10,000 UNITS/ 10 ML VIAL ONE (10:08)
[2020-07-17] MEDS: HumaLOG 300 UNITS/3 ML VIAL SC PRN (15:41)
[2020-07-17] MEDS: Micafungin 100 MG in Sodium Chloride 0.9% 100 ML IVPB SCH (15:52)
[2020-07-17 16:19] LABS: Ref Lab Test Ordered KARIUS; Reference Lab Name KARIUS
[2020-07-17] MEDS ORDERED: GANCICLOVIR SODIUM IVPB SCH (18:00)
[2020-07-17] MEDS ORDERED: SODIUM CHLORIDE 0.9% IVPB SCH (18:00)
[2020-07-17] MEDS: Piperacillin/Tazobactam 2.25 GM in Sodium Chloride 0.9% 100 ML IVPB SCH (22:02)
[2020-07-18] MEDS: Albuterol 200 PUFF (6.7GM INHALER) INH SCH ×4 (00:07→18:36)
[2020-07-18 05:27] LABS: Anion Gap 12 mmol/L (10-20); BUN (Urea Nitrogen) 46 mg/dL (8.4-25.7); Calc. Creatinine Clearance 31 mL/min (70-130); Calcium 8.4 mg/dL (7.8-10.44); Carbon Dioxide 29 mmol/L (23-31); Chloride 103 mmol/L (98-107); Glucose 172 mg/dL (80-115); Potassium 3.8 mmol/L (3.5-5.1); Sodium 140 mmol/L (136-145)
[2020-07-18 05:35] LABS: Band 25 % (5-11); Eosinophils 1 % (0-10); Hemoglobin 8.1 g/dL (14.0-18.0); Lymphocytes 11 % (21-51); MDiff Complete? YES; Mean Corpuscular HGB CONC 32.7 g/dL (32.0-36.0); Mean Corpuscular Volume 94.8 fL (78.0-98.0); Mean Platelet Volume 8.9 fL (7.4-10.4); Metamyelocyte 1 % (0-0); Monocytes 11 % (0-10); Myelocyte 1 % (0-0); Neutrophil 50 % (42-75); Nucleated RBC 3 % (0); Platelet Count 350 thou/uL (130-400); Platelet Morphology Comment Appears Adequate; Red Blood Cell (RBC) Count 2.62 mill/uL (4.70-6.10); White Blood Cell (WBC) Count 7.6 thou/uL (4.8-10.8)
[2020-07-18] MEDS: Piperacillin/Tazobactam 2.25 GM in Sodium Chloride 0.9% 100 ML IVPB SCH ×3 (06:10→22:03)
[2020-07-18] MEDS: Budesonide 0.5 MG/2 ML NEB NEB SCH ×2 (07:04→18:41)
[2020-07-18] MEDS: predniSONE 20 MG TAB PO SCH (08:25)
[2020-07-18] MEDS: Pantoprazole 40 MG GRANULES PACKET PER TUBE SCH ×2 (08:25→21:59)
[2020-07-18] MEDS: Aspirin Chewable 81 MG TAB PER TUBE SCH (08:25)
[2020-07-18] MEDS: Saccharomyces boulardii 250 MG CAP PO SCH (08:25)
[2020-07-18] MEDS: Insulin Glargine 14 UNITS in Pre-Filled Syringe 1 EACH SC SCH ×2 (08:25→21:59)
[2020-07-18] MEDS: Apixaban 2.5 MG TAB PO SCH ×2 (08:25→21:59)
[2020-07-18] MEDS: Refresh Lacri-lube Opth Oint 7 GM TUBE FS SCH (08:31)
[2020-07-18] MEDS: Docusate Sodium 100 MG/10 ML UDCUP PER TUBE SCH ×2 (08:32→22:12)
[2020-07-18] MEDS: HumaLOG 300 UNITS/3 ML VIAL SC PRN ×2 (09:51→15:53)
[2020-07-18] MEDS ORDERED: SODIUM CHLORIDE 0.9% IVPB SCH (12:00)
[2020-07-18] MEDS ORDERED: GANCICLOVIR SODIUM IVPB SCH (12:00)
[2020-07-18 13:46] VITALS: BP 125/78
[2020-07-19] MEDS: Albuterol 200 PUFF (6.7GM INHALER) INH SCH ×4 (00:42→20:01)
[2020-07-19] MEDS: Morphine 4 MG/ML VIAL SLOW IVP PRN (03:40)
[2020-07-19] MEDS: Piperacillin/Tazobactam 2.25 GM in Sodium Chloride 0.9% 100 ML IVPB SCH ×2 (05:42→14:05)
[2020-07-19 05:54] LABS: Hemoglobin 8.2 g/dL (14.0-18.0); Mean Corpuscular HGB CONC 31.3 g/dL (32.0-36.0); Mean Corpuscular Hemoglobin 29.6 pg (27.0-31.0); Mean Corpuscular Volume 94.5 fL (78.0-98.0); Mean Platelet Volume 8.8 fL (7.4-10.4); Platelet Count 364 thou/uL (130-400); RBC Distribution Width 18.1 % (11.5-14.5); Red Blood Cell (RBC) Count 2.77 mill/uL (4.70-6.10); White Blood Cell (WBC) Count 8.4 thou/uL (4.8-10.8)
[2020-07-19] MEDS: Budesonide 0.5 MG/2 ML NEB NEB SCH ×2 (06:09→19:58)
[2020-07-19 06:13] LABS: Anion Gap 15 mmol/L (10-20); BUN (Urea Nitrogen) 66 mg/dL (8.4-25.7); Calc. Creatinine Clearance 0 mL/min (70-130); Calcium 8.8 mg/dL (7.8-10.44); Carbon Dioxide 26 mmol/L (23-31); Chloride 105 mmol/L (98-107); Glucose 158 mg/dL (80-115); Potassium 3.6 mmol/L (3.5-5.1); Sodium 142 mmol/L (136-145)
[2020-07-19 06:38] LABS: Band 19 % (5-11); Lymphocytes 6 % (21-51); MDiff Complete? YES; Monocytes 4 % (0-10); Neutrophil 71 % (42-75)
[2020-07-19] MEDS: EPOETIN ALFA-EPBX (ESRD) 2,000 UNIT/ML VIAL SC SCH (08:41)
[2020-07-19] MEDS: EPOETIN ALFA-EPBX (ESRD) 3,000 UNIT/ML VIAL SC SCH (08:41)
[2020-07-19] MEDS: Insulin Glargine 14 UNITS in Pre-Filled Syringe 1 EACH SC SCH (08:49)
[2020-07-19] MEDS: Apixaban 2.5 MG TAB PO SCH (08:50)
[2020-07-19] MEDS: Pantoprazole 40 MG GRANULES PACKET PER TUBE SCH (08:50)
[2020-07-19] MEDS: Saccharomyces boulardii 250 MG CAP PO SCH (08:50)
[2020-07-19] MEDS: Aspirin Chewable 81 MG TAB PER TUBE SCH (08:50)
[2020-07-19] MEDS: predniSONE 20 MG TAB PO SCH (08:50)
[2020-07-19] MEDS: Docusate Sodium 100 MG/10 ML UDCUP PER TUBE SCH (08:51)
[2020-07-19] MEDS: Refresh Lacri-lube Opth Oint 7 GM TUBE FS SCH (09:04)
[2020-07-19] MEDS ORDERED: Morphine 4 MG/ML VIAL SLOW IVP PRN (15:20)
[2020-07-19 15:59] VITALS: TEMP 99
[2020-07-19] MEDS: HumaLOG 300 UNITS/3 ML VIAL SC PRN (16:27)
[2020-07-19] MEDS ORDERED: GANCICLOVIR SODIUM IVPB SCH (18:00)
[2020-07-19] MEDS ORDERED: SODIUM CHLORIDE 0.9% IVPB SCH (18:00)
[2020-08-14 14:37] LABS: Fungus Culture Final report (.); Fungus Culture Result 1 Candida parapsilosis (.)
== END 2020-07-19 19:30 | DRG 4 ==
LOC: ERS 10:32 → T4-A 12:30 → CCU 06-04 09:18
PROVIDERS: ADMIT Internal Medicine; ATTEND Internal Medicine
PROC: 5A09357 Assistance with Respiratory Ventilation, Less than 24 Consecutive Hours, Continuous Positive Airway Pressure (ICD-10-PCS; principal; 2020-05-23)
PROC: XW13325 Transfusion of Convalescent Plasma (Nonautologous) into Peripheral Vein, Percutaneous Approach, New Technology Group 5 (ICD-10-PCS; 2020-05-23)
PROC: XW033E5 Introduction of Remdesivir Anti-infective into Peripheral Vein, Percutaneous Approach, New Technology Group 5 (ICD-10-PCS; 2020-05-24)
PROC: 5A1955Z Respiratory Ventilation, Greater than 96 Consecutive Hours (ICD-10-PCS; 2020-06-04)
PROC: 0BH17EZ Insertion of Endotracheal Airway into Trachea, Via Natural or Artificial Opening (ICD-10-PCS; 2020-06-04)
PROC: 06H033Z Insertion of Infusion Device into Inferior Vena Cava, Percutaneous Approach (ICD-10-PCS; 2020-06-08)
PROC: 06HY33Z Insertion of Infusion Device into Lower Vein, Percutaneous Approach (ICD-10-PCS; 2020-06-16)
PROC: 5A1D70Z Performance of Urinary Filtration, Intermittent, Less than 6 Hours Per Day (ICD-10-PCS; 2020-06-17)
PROC: 0DJ08ZZ Inspection of Upper Intestinal Tract, Via Natural or Artificial Opening Endoscopic (ICD-10-PCS; 2020-06-18)
PROC: 0DH68UZ Insertion of Feeding Device into Stomach, Via Natural or Artificial Opening Endoscopic (ICD-10-PCS; 2020-06-18)
PROC: 30233N1 Transfusion of Nonautologous Red Blood Cells into Peripheral Vein, Percutaneous Approach (ICD-10-PCS; 2020-06-18)
PROC: 5A12012 Performance of Cardiac Output, Single, Manual (ICD-10-PCS; 2020-06-20)
PROC: 3E033XZ Introduction of Vasopressor into Peripheral Vein, Percutaneous Approach (ICD-10-PCS; 2020-06-20)
PROC: 0B113F4 Bypass Trachea to Cutaneous with Tracheostomy Device, Percutaneous Approach (ICD-10-PCS; 2020-06-27)
PROC: 0DH63UZ Insertion of Feeding Device into Stomach, Percutaneous Approach (ICD-10-PCS; 2020-06-27)
PROC: 0B9B8ZZ Drainage of Left Lower Lobe Bronchus, Via Natural or Artificial Opening Endoscopic (ICD-10-PCS; 2020-06-27)
PROC: 0B948ZZ Drainage of Right Upper Lobe Bronchus, Via Natural or Artificial Opening Endoscopic (ICD-10-PCS; 2020-06-27)
PROC: 0B988ZZ Drainage of Left Upper Lobe Bronchus, Via Natural or Artificial Opening Endoscopic (ICD-10-PCS; 2020-06-27)
PROC: 0B968ZZ Drainage of Right Lower Lobe Bronchus, Via Natural or Artificial Opening Endoscopic (ICD-10-PCS; 2020-06-27)
PROC: 0JH63XZ Insertion of Tunneled Vascular Access Device into Chest Subcutaneous Tissue and Fascia, Percutaneous Approach (ICD-10-PCS; 2020-07-11)
PROC: 02HV33Z Insertion of Infusion Device into Superior Vena Cava, Percutaneous Approach (ICD-10-PCS; 2020-07-11)
PROC: B5181ZA Fluoroscopy of Superior Vena Cava using Low Osmolar Contrast, Guidance (ICD-10-PCS; 2020-07-11)
PROC: 06HY33Z Insertion of Infusion Device into Lower Vein, Percutaneous Approach (ICD-10-PCS; 2020-07-12)
DX: A41.89 Other specified sepsis (principal); U07.1 COVID-19; J12.82 Pneumonia due to coronavirus disease 2019; J80 Acute respiratory distress syndrome; N17.0 Acute kidney failure with tubular necrosis; K29.71 Gastritis, unspecified, with bleeding; I46.9 Cardiac arrest, cause unspecified; G93.41 Metabolic encephalopathy; D62 Acute posthemorrhagic anemia; I47.2 Ventricular tachycardia; T82.868A Thrombosis due to vascular prosthetic devices, implants and grafts, initial encounter; T82.49XA Other complication of vascular dialysis catheter, initial encounter; B37.49 Other urogenital candidiasis; E87.1 Hypo-osmolality and hyponatremia; B25.9 Cytomegaloviral disease, unspecified; Z16.32 Resistance to antifungal drug(s); G72.81 Critical illness myopathy; E87.4 Mixed disorder of acid-base balance; E88.09 Other disorders of plasma-protein metabolism, not elsewhere classified; D63.1 Anemia in chronic kidney disease; E11.22 Type 2 diabetes mellitus with diabetic chronic kidney disease; I95.9 Hypotension, unspecified; R65.20 Severe sepsis without septic shock; E78.5 Hyperlipidemia, unspecified; I25.10 Atherosclerotic heart disease of native coronary artery without angina pectoris; E87.6 Hypokalemia; D50.9 Iron deficiency anemia, unspecified; E87.5 Hyperkalemia; E11.65 Type 2 diabetes mellitus with hyperglycemia; E87.70 Fluid overload, unspecified; R31.0 Gross hematuria; T85.898A Other specified complication of other internal prosthetic devices, implants and grafts, initial encounter; Y84.8 Other medical procedures as the cause of abnormal reaction of the patient, or of later complication, without mention of misadventure at the time of the procedure; R19.7 Diarrhea, unspecified; B96.5 Pseudomonas (aeruginosa) (mallei) (pseudomallei) as the cause of diseases classified elsewhere; B95.2 Enterococcus as the cause of diseases classified elsewhere; Z95.5 Presence of coronary angioplasty implant and graft; Z87.891 Personal history of nicotine dependence; Z79.84 Long term (current) use of oral hypoglycemic drugs; Z79.82 Long term (current) use of aspirin; Z79.51 Long term (current) use of inhaled steroids; Z79.899 Other long term (current) drug therapy; Z78.1 Physical restraint status; N18.9 Chronic kidney disease, unspecified; I12.9 Hypertensive chronic kidney disease with stage 1 through stage 4 chronic kidney disease, or unspecified chronic kidney disease
CPT/HCPCS: 31624; 36415; 36416; 36430; 36600; 71045; 71260; 71275; 74018; 74177; 76770; 80048; 80053; 80069; 80076; 80202; 81001; 81003; 81015; 82040; 82271; 82550; 82552; 82553; 82570; 82728; 82805; 83540; 83550; 83605; 83615; 83690; 83735; 83880; 84100; 84145; 84156; 84300; 84484; 84540; 85025; 85379; 85652; 86140; 86160; 86704; 86706; 86803; 86850; 86870; 86880; 86900; 86901; 86905; 86922; 87040; 87070; 87071; 87077; 87081; 87086; 87102; 87103; 87149; 87186; 87205; 87340; 89220; 90935; 92950; 93005; 93010; 93306; 93970; 93976; 94002; 94003; 94640; 94760; 95712; 95819; 95957; 96374; C1752; C9113; G0257; J0171; J0360; J0456; J0692; J0696; J1100; J1450; J1570; J1642; J1644; J1650; J1815; J1940; J2060; J2185; J2248; J2250; J2270; J2405; J2543; J2704; J2765; J2916; J2997; J3010; J3370; J3490; J7050; J7070; J7512; J7626; J8540; P9016; P9017; P9045; P9047; Q5105; Q9967; S0020; S0028

== ENCOUNTER 2020-09-23 13:14 | Inpatient (IN) | payer BC ==
[~2020-09-23 13:14] MED LIST: Heparin 1,000 UNITS/ML VIAL ONE; Iopamidol-370 76% 500 ML 1 ML ONE
[2020-09-23 13:57] LABS: Hemoglobin 7.5 g/dL (14.0-18.0); Mean Corpuscular Hemoglobin 28.4 pg (27.0-31.0); Mean Corpuscular Volume 91.6 fL (78.0-98.0); Mean Platelet Volume 7.9 fL (7.4-10.4); Platelet Count 405 thou/uL (130-400); RBC Distribution Width 14.5 % (11.5-14.5); Red Blood Cell (RBC) Count 2.66 mill/uL (4.70-6.10); White Blood Cell (WBC) Count 14.7 thou/uL (4.8-10.8)
[2020-09-23 13:59] LABS: PTT 41.3 sec (22.9-36.1); Prothrombin Time 16.1 sec (12.0-14.7)
[2020-09-23 14:00] LABS: INR-International Normal Ratio 1.3
[2020-09-23 14:08] LABS: ALT (SGPT) 9 U/L (8-55); AST (SGOT) 20 U/L (5-34); Albumin 2.7 g/dL (3.4-4.8); Alkaline Phosphatase 95 U/L (40-110); Anion Gap 13 mmol/L (10-20); BUN (Urea Nitrogen) 13 mg/dL (8.4-25.7); Bilirubin, Total 0.3 mg/dL (0.2-1.2); Calc. Creatinine Clearance 0 mL/min (70-130); Calcium 8.9 mg/dL (7.8-10.44); Carbon Dioxide 23 mmol/L (23-31); Chloride 104 mmol/L (98-107); Globulin 4.4 g/dL (2.4-3.5); Glucose 169 mg/dL (80-115); Potassium 4.4 mmol/L (3.5-5.1); Protein, Total 7.1 g/dL (5.8-8.1); Sodium 136 mmol/L (136-145)
[2020-09-23 14:15] LABS: Band 6 % (5-11); Eosinophils 1 % (0-10); Lymphocytes 4 % (21-51); MDiff Complete? YES; Monocytes 7 % (0-10); Neutrophil 82 % (42-75); Platelet Morphology Comment Appears Increased; Polychromasia SLIGHT = 2-3 cells (100X) (0-2/hpf)
[2020-09-23 14:40] LABS: CKMB 0.7 ng/mL (0-6.6)
[2020-09-23] MEDS ORDERED: Aspirin Chewable 81 MG TAB ONE (16:06)
[2020-09-23] MEDS ORDERED: Ondansetron ODT 4 MG TAB SL PRN (17:15)
[2020-09-23] MEDS ORDERED: Sodium Chloride 0.9% 1,000 ML IV SCH (17:15)
[2020-09-23] MEDS ORDERED: Ondansetron PF 4 MG/2 ML Vial IVP PRN (17:15)
[2020-09-23] MEDS ORDERED: Dextrose 5% in Water 1,000 ML IV PRN (21:24)
[2020-09-23] MEDS ORDERED: Dextrose 50% Abboject 50 ML SYRINGE SLOW IVP PRN (21:24)
[2020-09-23] MEDS ORDERED: HYDROcodone/Acetaminophen 5/325 mg Tablet PO PRN (21:24)
[2020-09-23 22:53] LABS: Syphilis Antibody Nonreactive (Nonreactive); Syphilis Antibody Index 0.08 S/CO (<1.00 Non-Reactive)
[2020-09-24] MEDS: Acetaminophen 325 MG TAB PO PRN ×3 (00:07→20:06)
[2020-09-24 02:15] LABS: SARS-CoV-2 PCR by NAA Not Detected (NotDetected)
[2020-09-24 06:08] LABS: Cardiac Risk 8.6 (Less than 4.5)
[2020-09-24] MEDS ORDERED: Aspirin 325 mg Enteric Coated Tablet PO SCH (09:00)
[2020-09-24] MEDS ORDERED: Enoxaparin Sodium 40 MG/0.4 ML SYRINGE SC SCH (09:00)
[2020-09-24 09:53] LABS: Critical Call Chem Troponin I RESULT DECREASING; Troponin I 0.526 ng/mL (< 0.028)
[2020-09-24] MEDS: Alogliptin 6.25 MG TAB PO SCH (09:58)
[2020-09-24] MEDS: Clopidogrel Bisulfate 75 MG TAB PO SCH (10:01)
[2020-09-24] MEDS: Aspirin Chewable 81 MG TAB PO SCH (10:01)
[2020-09-24] MEDS: Saccharomyces boulardii 250 MG CAP PO SCH ×2 (10:02→20:06)
[2020-09-24] MEDS: Folic Acid/Vit B Comp W-C PO SCH (10:02)
[2020-09-24] MEDS: Apixaban 2.5 MG TAB PO SCH ×2 (10:02→20:06)
[2020-09-24] MEDS: Tamsulosin HCl 0.4 MG CAP PO SCH (10:03)
[2020-09-24] MEDS: Carvedilol 6.25 MG TAB PO SCH ×2 (10:49→20:05)
[2020-09-24] MEDS: Losartan 25 MG TAB PO SCH (10:50)
[2020-09-24 11:50] LABS: Critical Call Chem Troponin I RESULT DECREASING; Troponin I 0.479 ng/mL (< 0.028)
[2020-09-24 12:21] LABS: Bacteria/HPF None Seen HPF (None Seen); Bilirubin Negative (Negative); Blood, Urine Negative (Negative); Clarity Clear (Clear); Glucose, Urine (Dipstick) Normal (Negative); Ketone, Urine Negative (Negative); Leukocyte Negative Leu/uL (Negative); Nitrite Negative (Negative); Protein, Urine (Dipstick) 30 mg/dL (Neg-Trace); RBC/HPF 0-3 HPF (0-3); Specific Gravity, Urine 1.034 (1.002-1.036); Squamous Epithelial None Seen HPF (0-3); Urobilinogen Normal mg/dL (Less than 2); WBC/HPF 0-3 HPF (0-3); pH, Urine 6.5 (5.0-9.0)
[2020-09-24 12:24] LABS: Urine Culture Reflex No No
[2020-09-24] MEDS: GUAIFENESIN SF SOLN 200 MG/10 ML UDCUP PO PRN (15:42)
[2020-09-24] MEDS ORDERED: Fluticasone Propionate Nasal Spray 16 gm Bottle NASAL SCH (18:00)
[2020-09-24] MEDS: Atorvastatin Calcium 40 MG TAB PO SCH (20:06)
[2020-09-24] MEDS ORDERED: Atorvastatin Calcium 40 MG TAB PO SCH (21:00)
[2020-09-25] MEDS: GUAIFENESIN SF SOLN 200 MG/10 ML UDCUP PO PRN (05:33)
[2020-09-25 05:59] LABS: Anion Gap 13 mmol/L (10-20); BUN (Urea Nitrogen) 9 mg/dL (8.4-25.7); Calc. Creatinine Clearance 86 mL/min (70-130); Calcium 8.8 mg/dL (7.8-10.44); Carbon Dioxide 20 mmol/L (23-31); Chloride 106 mmol/L (98-107); Glucose 114 mg/dL (80-115); Potassium 4.2 mmol/L (3.5-5.1); Sodium 135 mmol/L (136-145)
[2020-09-25 06:11] LABS: Mean Corpuscular HGB CONC 29.9 g/dL (32.0-36.0); Mean Corpuscular Hemoglobin 27.1 pg (27.0-31.0); Mean Corpuscular Volume 90.8 fL (78.0-98.0); Mean Platelet Volume 7.7 fL (7.4-10.4); Platelet Count 385 thou/uL (130-400); RBC Distribution Width 14.3 % (11.5-14.5); Red Blood Cell (RBC) Count 2.58 mill/uL (4.70-6.10)
[2020-09-25 06:14] LABS: Hypochromia SLIGHT = 6-15 cells (100X) (0-5/hpf); MDiff Complete? YES; Platelet Morphology Comment Appears Adequate
[2020-09-25 06:35] LABS: Critical Call Chem Troponin I RESULT DECREASING; Troponin I 0.393 ng/mL (< 0.028)
[2020-09-25] MEDS ORDERED: PROPOFOL 200 MG/20 ML VIAL ONE (09:03)
[2020-09-25] MEDS: cefTRIAXone\\ROCEPHIN 2 GM in Sodium Chloride 0.9% 100 ML IVPB SCH ×3 (10:05→23:01)
[2020-09-25] MEDS: Aspirin Chewable 81 MG TAB PO SCH (10:58)
[2020-09-25] MEDS: Folic Acid/Vit B Comp W-C PO SCH (10:58)
[2020-09-25] MEDS: Saccharomyces boulardii 250 MG CAP PO SCH ×2 (10:58→21:40)
[2020-09-25] MEDS: Carvedilol 6.25 MG TAB PO SCH ×2 (10:59→21:41)
[2020-09-25] MEDS: Tamsulosin HCl 0.4 MG CAP PO SCH (10:59)
[2020-09-25] MEDS: Losartan 25 MG TAB PO SCH (10:59)
[2020-09-25] MEDS: Clopidogrel Bisulfate 75 MG TAB PO SCH (10:59)
[2020-09-25] MEDS: AMPicillin 2 GM in Sodium Chloride 0.9% 100 ML IVPB SCH ×3 (11:00→18:09)
[2020-09-25] MEDS: Alogliptin 6.25 MG TAB PO SCH (11:09)
[2020-09-25] MEDS: Acetaminophen 325 MG TAB PO PRN ×2 (11:14→22:02)
[2020-09-25] MEDS: Apixaban 2.5 MG TAB PO SCH ×2 (11:14→22:43)
[2020-09-25 11:40] LABS: ANA Symphony (Qualitative) Negative (Negative); ANA Symphony (Quantitative) 0.2 Ratio (< 0.7 Negative); dsDNA IgG Antibody 1.1 IU/mL (<10 Negative)
[2020-09-25 13:57] LABS: Hemoglobin 7.8 g/dL (14.0-18.0); Platelet Count 406 thou/uL (130-400)
[2020-09-25] MEDS: Fluticasone Propionate Nasal Spray 16 gm Bottle NASAL SCH (18:08)
[2020-09-25] MEDS: Atorvastatin Calcium 40 MG TAB PO SCH (21:40)
[2020-09-26] MEDS: AMPicillin 2 GM in Sodium Chloride 0.9% 100 ML IVPB SCH ×7 (00:15→21:50)
[2020-09-26 05:41] LABS: #Basophils 0.1 thou/uL (0.0-0.2); #Eosinphils 0.4 thou/uL (0.0-0.7); #Lymphocytes 1.2 thou/uL (1.20-3.40); #Neutrophils 11.7 thou/uL (1.40-6.50); %Basophils 0.6 % (0.0-1.0); %Eosinophils 2.5 % (0.0-10.0); %Lymphocytes 7.7 % (21.0-51.0); %Monocytes 13.1 % (0.0-10.0); %Neutrophils 76.1 % (42.0-75.0); Hemoglobin 7.6 g/dL (14.0-18.0); Mean Corpuscular HGB CONC 32.3 g/dL (32.0-36.0); Mean Corpuscular Hemoglobin 30.1 pg (27.0-31.0); Mean Corpuscular Volume 93.2 fL (78.0-98.0); Platelet Count 424 thou/uL (130-400); RBC Distribution Width 14.6 % (11.5-14.5); Red Blood Cell (RBC) Count 2.52 mill/uL (4.70-6.10); White Blood Cell (WBC) Count 15.4 thou/uL (4.8-10.8)
[2020-09-26 06:00] LABS: Anion Gap 14 mmol/L (10-20); BUN (Urea Nitrogen) 9 mg/dL (8.4-25.7); Calc. Creatinine Clearance 88 mL/min (70-130); Calcium 8.7 mg/dL (7.8-10.44); Carbon Dioxide 22 mmol/L (23-31); Chloride 106 mmol/L (98-107); Glucose 97 mg/dL (80-115); Potassium 3.8 mmol/L (3.5-5.1); Sodium 138 mmol/L (136-145)
[2020-09-26 06:06] LABS: Troponin I 0.279 ng/mL (< 0.028)
[2020-09-26] MEDS: cefTRIAXone\\ROCEPHIN 2 GM in Sodium Chloride 0.9% 100 ML IVPB SCH ×2 (09:09→20:28)
[2020-09-26] MEDS: Carvedilol 6.25 MG TAB PO SCH ×2 (09:10→20:29)
[2020-09-26] MEDS: Folic Acid/Vit B Comp W-C PO SCH (09:10)
[2020-09-26] MEDS: Saccharomyces boulardii 250 MG CAP PO SCH ×2 (09:10→20:28)
[2020-09-26] MEDS: Aspirin Chewable 81 MG TAB PO SCH (09:10)
[2020-09-26] MEDS: Alogliptin 6.25 MG TAB PO SCH (09:10)
[2020-09-26] MEDS: Losartan 25 MG TAB PO SCH (09:11)
[2020-09-26] MEDS: Clopidogrel Bisulfate 75 MG TAB PO SCH (09:11)
[2020-09-26] MEDS: Fluticasone Propionate Nasal Spray 16 gm Bottle NASAL SCH (09:11)
[2020-09-26] MEDS: Tamsulosin HCl 0.4 MG CAP PO SCH (09:11)
[2020-09-26] MEDS ORDERED: Clopidogrel Bisulfate 75 MG TAB PO SCH (09:30)
[2020-09-26] MEDS: Acetaminophen 325 MG TAB PO PRN (18:35)
[2020-09-26] MEDS: Atorvastatin Calcium 40 MG TAB PO SCH (20:28)
[2020-09-26] MEDS: Enoxaparin Sodium 30 MG/0.3 ML SYRINGE SC SCH (20:29)
[2020-09-27] MEDS: AMPicillin 2 GM in Sodium Chloride 0.9% 100 ML IVPB SCH ×6 (02:00→21:32)
[2020-09-27] MEDS: Acetaminophen 325 MG TAB PO PRN ×2 (02:40→21:38)
[2020-09-27 05:31] LABS: #Eosinphils 0.5 thou/uL (0.0-0.7); #Lymphocytes 1.1 thou/uL (1.20-3.40); #Monocytes 1.7 thou/uL (0.11-0.59); #Neutrophils 10.9 thou/uL (1.40-6.50); %Basophils 0.3 % (0.0-1.0); %Eosinophils 3.5 % (0.0-10.0); %Lymphocytes 7.7 % (21.0-51.0); %Monocytes 12.1 % (0.0-10.0); %Neutrophils 76.4 % (42.0-75.0); Hemoglobin 6.8 g/dL (14.0-18.0); Mean Corpuscular HGB CONC 30.1 g/dL (32.0-36.0); Mean Corpuscular Hemoglobin 28.3 pg (27.0-31.0); Mean Corpuscular Volume 93.8 fL (78.0-98.0); Mean Platelet Volume 7.7 fL (7.4-10.4); Platelet Count 468 thou/uL (130-400); RBC Distribution Width 14.5 % (11.5-14.5); White Blood Cell (WBC) Count 14.3 thou/uL (4.8-10.8)
[2020-09-27] MEDS: Alogliptin 6.25 MG TAB PO SCH (09:45)
[2020-09-27] MEDS: Losartan 25 MG TAB PO SCH (09:46)
[2020-09-27] MEDS: Saccharomyces boulardii 250 MG CAP PO SCH ×2 (09:46→20:16)
[2020-09-27] MEDS: Tamsulosin HCl 0.4 MG CAP PO SCH (09:46)
[2020-09-27] MEDS: Aspirin Chewable 81 MG TAB PO SCH (09:46)
[2020-09-27] MEDS: Carvedilol 6.25 MG TAB PO SCH ×2 (09:46→20:14)
[2020-09-27] MEDS: Folic Acid/Vit B Comp W-C PO SCH (09:46)
[2020-09-27] MEDS: Clopidogrel Bisulfate 75 MG TAB PO SCH (09:48)
[2020-09-27] MEDS: Fluticasone Propionate Nasal Spray 16 gm Bottle NASAL SCH (09:49)
[2020-09-27] MEDS: cefTRIAXone\\ROCEPHIN 2 GM in Sodium Chloride 0.9% 100 ML IVPB SCH ×2 (11:34→20:15)
[2020-09-27 15:38] LABS: Hemoglobin 6.6 g/dL (14.0-18.0); Platelet Count 418 thou/uL (130-400)
[2020-09-27] MEDS: Enoxaparin Sodium 30 MG/0.3 ML SYRINGE SC SCH (20:08)
[2020-09-27] MEDS: Atorvastatin Calcium 40 MG TAB PO SCH (20:14)
[2020-09-28] MEDS: AMPicillin 2 GM in Sodium Chloride 0.9% 100 ML IVPB SCH ×6 (01:44→22:47)
[2020-09-28 05:53] LABS: #Eosinphils 0.5 thou/uL (0.0-0.7); #Lymphocytes 0.9 thou/uL (1.20-3.40); #Monocytes 1.4 thou/uL (0.11-0.59); #Neutrophils 9.7 thou/uL (1.40-6.50); %Basophils 0.4 % (0.0-1.0); %Eosinophils 4.2 % (0.0-10.0); %Lymphocytes 7.4 % (21.0-51.0); Hemoglobin 7.7 g/dL (14.0-18.0); Mean Corpuscular HGB CONC 30.9 g/dL (32.0-36.0); Mean Corpuscular Hemoglobin 28.8 pg (27.0-31.0); Mean Corpuscular Volume 93.2 fL (78.0-98.0); Mean Platelet Volume 7.4 fL (7.4-10.4); Platelet Count 451 thou/uL (130-400); RBC Distribution Width 14.2 % (11.5-14.5); Red Blood Cell (RBC) Count 2.66 mill/uL (4.70-6.10); White Blood Cell (WBC) Count 12.6 thou/uL (4.8-10.8)
[2020-09-28] MEDS: Tamsulosin HCl 0.4 MG CAP PO SCH (08:36)
[2020-09-28] MEDS: Folic Acid/Vit B Comp W-C PO SCH (08:36)
[2020-09-28] MEDS: Losartan 25 MG TAB PO SCH (08:36)
[2020-09-28] MEDS: Saccharomyces boulardii 250 MG CAP PO SCH ×2 (08:36→20:48)
[2020-09-28] MEDS: Aspirin Chewable 81 MG TAB PO SCH (08:37)
[2020-09-28] MEDS: cefTRIAXone\\ROCEPHIN 2 GM in Sodium Chloride 0.9% 100 ML IVPB SCH ×2 (08:37→20:48)
[2020-09-28] MEDS: Carvedilol 6.25 MG TAB PO SCH ×2 (08:37→20:48)
[2020-09-28] MEDS: Clopidogrel Bisulfate 75 MG TAB PO SCH (08:37)
[2020-09-28] MEDS: Alogliptin 6.25 MG TAB PO SCH (08:37)
[2020-09-28] MEDS: Fluticasone Propionate Nasal Spray 16 gm Bottle NASAL SCH ×2 (08:38→08:43)
[2020-09-28] MEDS ORDERED: Benzonatate 100 MG CAP PO PRN (14:44)
[2020-09-28 15:18] LABS: Iron Binding Capacity, Total 129 mcg/dL (261-462)
[2020-09-28 15:19] LABS: Iron 15 ug/dL (65-175)
[2020-09-28] MEDS: GUAIFENESIN SF SOLN 200 MG/10 ML UDCUP PO PRN (18:01)
[2020-09-28] MEDS: Atorvastatin Calcium 40 MG TAB PO SCH (20:47)
[2020-09-28] MEDS: Acetaminophen 325 MG TAB PO PRN (23:37)
[2020-09-29] MEDS ORDERED: Fluticasone Propionate Nasal Spray 16 gm Bottle NASAL SCH (01:15)
[2020-09-29] MEDS: AMPicillin 2 GM in Sodium Chloride 0.9% 100 ML IVPB SCH ×6 (01:16→22:45)
[2020-09-29 07:12] LABS: #Eosinphils 0.5 thou/uL (0.0-0.7); #Lymphocytes 0.9 thou/uL (1.20-3.40); #Monocytes 1.2 thou/uL (0.11-0.59); %Basophils 0.3 % (0.0-1.0); %Eosinophils 4.3 % (0.0-10.0); %Lymphocytes 8.4 % (21.0-51.0); %Monocytes 11.4 % (0.0-10.0); %Neutrophils 75.6 % (42.0-75.0); Hemoglobin 7.9 g/dL (14.0-18.0); Mean Corpuscular HGB CONC 31.9 g/dL (32.0-36.0); Mean Corpuscular Hemoglobin 29.4 pg (27.0-31.0); Mean Corpuscular Volume 92.2 fL (78.0-98.0); Mean Platelet Volume 7.2 fL (7.4-10.4); Platelet Count 433 thou/uL (130-400); RBC Distribution Width 14.4 % (11.5-14.5); Red Blood Cell (RBC) Count 2.69 mill/uL (4.70-6.10); White Blood Cell (WBC) Count 10.6 thou/uL (4.8-10.8)
[2020-09-29] MEDS: cefTRIAXone\\ROCEPHIN 2 GM in Sodium Chloride 0.9% 100 ML IVPB SCH ×2 (09:01→23:54)
[2020-09-29] MEDS: Folic Acid/Vit B Comp W-C PO SCH (09:02)
[2020-09-29] MEDS: Tamsulosin HCl 0.4 MG CAP PO SCH (09:02)
[2020-09-29] MEDS: Losartan 25 MG TAB PO SCH (09:02)
[2020-09-29] MEDS: Saccharomyces boulardii 250 MG CAP PO SCH ×2 (09:03→22:44)
[2020-09-29] MEDS: Alogliptin 6.25 MG TAB PO SCH (09:03)
[2020-09-29] MEDS: Carvedilol 6.25 MG TAB PO SCH ×2 (09:04→22:44)
[2020-09-29] MEDS: Aspirin 81 mg Enteric Coated Tablet PO SCH (09:04)
[2020-09-29] MEDS: Clopidogrel Bisulfate 75 MG TAB PO SCH (09:04)
[2020-09-29 15:56] LABS: Anion Gap 12 mmol/L (10-20); BUN (Urea Nitrogen) 4 mg/dL (8.4-25.7); Calc. Creatinine Clearance 86 mL/min (70-130); Calcium 8.6 mg/dL (7.8-10.44); Carbon Dioxide 27 mmol/L (23-31); Chloride 105 mmol/L (98-107); Glucose 135 mg/dL (80-115); Magnesium 1.6 mg/dL (1.6-2.6); Potassium 3.7 mmol/L (3.5-5.1); Sodium 140 mmol/L (136-145)
[2020-09-29] MEDS: GUAIFENESIN SF SOLN 200 MG/10 ML UDCUP PO PRN (16:19)
[2020-09-29] MEDS: Fluticasone Propionate Nasal Spray 16 gm Bottle NASAL SCH (22:42)
[2020-09-29] MEDS: Atorvastatin Calcium 40 MG TAB PO SCH (22:43)
[2020-09-30] MEDS: AMPicillin 2 GM in Sodium Chloride 0.9% 100 ML IVPB SCH ×2 (05:34→05:35)
[2020-09-30 07:59] LABS: #Eosinphils 0.5 thou/uL (0.0-0.7); #Lymphocytes 1.1 thou/uL (1.20-3.40); #Neutrophils 8.1 thou/uL (1.40-6.50); %Basophils 0.2 % (0.0-1.0); %Eosinophils 4.3 % (0.0-10.0); %Lymphocytes 10.5 % (21.0-51.0); %Monocytes 9.7 % (0.0-10.0); %Neutrophils 75.3 % (42.0-75.0); Hemoglobin 7.3 g/dL (14.0-18.0); Mean Corpuscular HGB CONC 31.9 g/dL (32.0-36.0); Mean Corpuscular Hemoglobin 29.3 pg (27.0-31.0); Mean Corpuscular Volume 91.9 fL (78.0-98.0); Mean Platelet Volume 7.1 fL (7.4-10.4); Platelet Count 445 thou/uL (130-400); RBC Distribution Width 14.4 % (11.5-14.5); Red Blood Cell (RBC) Count 2.49 mill/uL (4.70-6.10); White Blood Cell (WBC) Count 10.8 thou/uL (4.8-10.8)
[2020-09-30] MEDS: Alogliptin 6.25 MG TAB PO SCH (09:21)
[2020-09-30] MEDS: Tamsulosin HCl 0.4 MG CAP PO SCH (09:21)
[2020-09-30] MEDS: Folic Acid/Vit B Comp W-C PO SCH (09:21)
[2020-09-30] MEDS: Fluticasone Propionate Nasal Spray 16 gm Bottle NASAL SCH (09:21)
[2020-09-30] MEDS: cefTRIAXone\\ROCEPHIN 2 GM in Sodium Chloride 0.9% 100 ML IVPB SCH ×2 (09:22→21:22)
[2020-09-30] MEDS: Carvedilol 6.25 MG TAB PO SCH ×2 (09:22→21:22)
[2020-09-30] MEDS: Clopidogrel Bisulfate 75 MG TAB PO SCH (09:23)
[2020-09-30] MEDS: Aspirin 81 mg Enteric Coated Tablet PO SCH (09:23)
[2020-09-30] MEDS: Saccharomyces boulardii 250 MG CAP PO SCH ×2 (09:23→21:23)
[2020-09-30] MEDS: Losartan 25 MG TAB PO SCH (09:23)
[2020-09-30] MEDS: Ampicillin 2 GM in Sodium Chloride 0.9% 100 ML IVPB SCH ×4 (10:09→21:22)
[2020-09-30] MEDS ORDERED: Sodium Chloride 0.9% 10 ML ONE (10:11)
[2020-09-30] MEDS: Atorvastatin Calcium 40 MG TAB PO SCH (21:22)
[2020-10-01] MEDS: Ampicillin 2 GM in Sodium Chloride 0.9% 100 ML IVPB SCH ×6 (01:58→22:09)
[2020-10-01 05:50] LABS: #Eosinphils 0.5 thou/uL (0.0-0.7); #Lymphocytes 1.1 thou/uL (1.20-3.40); #Monocytes 1.1 thou/uL (0.11-0.59); #Neutrophils 8.1 thou/uL (1.40-6.50); %Basophils 0.3 % (0.0-1.0); %Eosinophils 4.3 % (0.0-10.0); %Lymphocytes 10.1 % (21.0-51.0); %Monocytes 10.4 % (0.0-10.0); %Neutrophils 74.9 % (42.0-75.0); Hemoglobin 7.1 g/dL (14.0-18.0); Mean Corpuscular HGB CONC 31.3 g/dL (32.0-36.0); Mean Corpuscular Hemoglobin 28.9 pg (27.0-31.0); Mean Corpuscular Volume 92.2 fL (78.0-98.0); Mean Platelet Volume 7.4 fL (7.4-10.4); Platelet Count 432 thou/uL (130-400); RBC Distribution Width 14.5 % (11.5-14.5); Red Blood Cell (RBC) Count 2.44 mill/uL (4.70-6.10); White Blood Cell (WBC) Count 10.9 thou/uL (4.8-10.8)
[2020-10-01 06:14] LABS: Anion Gap 11 mmol/L (10-20); BUN (Urea Nitrogen) 5 mg/dL (8.4-25.7); Calc. Creatinine Clearance 89 mL/min (70-130); Calcium 8.5 mg/dL (7.8-10.44); Carbon Dioxide 26 mmol/L (23-31); Chloride 106 mmol/L (98-107); Glucose 86 mg/dL (80-115); Potassium 3.3 mmol/L (3.5-5.1); Sodium 140 mmol/L (136-145)
[2020-10-01] MEDS: Folic Acid/Vit B Comp W-C PO SCH (08:44)
[2020-10-01] MEDS: Alogliptin 6.25 MG TAB PO SCH (08:44)
[2020-10-01] MEDS: Tamsulosin HCl 0.4 MG CAP PO SCH (08:46)
[2020-10-01] MEDS: Clopidogrel Bisulfate 75 MG TAB PO SCH (08:46)
[2020-10-01] MEDS: Aspirin 81 mg Enteric Coated Tablet PO SCH (08:46)
[2020-10-01] MEDS: Losartan 25 MG TAB PO SCH (08:46)
[2020-10-01] MEDS: Saccharomyces boulardii 250 MG CAP PO SCH ×2 (08:47→22:21)
[2020-10-01] MEDS: Carvedilol 6.25 MG TAB PO SCH ×2 (08:47→22:21)
[2020-10-01] MEDS: Fluticasone Propionate Nasal Spray 16 gm Bottle NASAL SCH (08:48)
[2020-10-01] MEDS: cefTRIAXone\\ROCEPHIN 2 GM in Sodium Chloride 0.9% 100 ML IVPB SCH ×2 (08:57→22:10)
[2020-10-01] MEDS: Potassium Chloride 20 MEQ in Premix Bag 1 BAG IVPB SCH ×2 (09:12→10:27)
[2020-10-01] MEDS ORDERED: Magnesium 2 GM/50 ML 2 GM in Premix Bag 1 BAG IVPB SCH (21:30)
[2020-10-01] MEDS: Atorvastatin Calcium 40 MG TAB PO SCH (22:22)
[2020-10-01] MEDS: GUAIFENESIN SF SOLN 200 MG/10 ML UDCUP PO PRN (22:30)
[2020-10-02] MEDS: Ampicillin 2 GM in Sodium Chloride 0.9% 100 ML IVPB SCH ×6 (01:40→20:15)
[2020-10-02 05:02] LABS: #Eosinphils 0.5 thou/uL (0.0-0.7); #Lymphocytes 1.2 thou/uL (1.20-3.40); #Monocytes 1.2 thou/uL (0.11-0.59); #Neutrophils 8.6 thou/uL (1.40-6.50); %Basophils 0.1 % (0.0-1.0); %Eosinophils 4.8 % (0.0-10.0); %Lymphocytes 10.2 % (21.0-51.0); %Monocytes 10.7 % (0.0-10.0); %Neutrophils 74.2 % (42.0-75.0); Hemoglobin 7.7 g/dL (14.0-18.0); Mean Corpuscular HGB CONC 31.2 g/dL (32.0-36.0); Mean Corpuscular Hemoglobin 28.8 pg (27.0-31.0); Mean Corpuscular Volume 92.5 fL (78.0-98.0); Mean Platelet Volume 7.4 fL (7.4-10.4); Platelet Count 450 thou/uL (130-400); RBC Distribution Width 14.8 % (11.5-14.5); Red Blood Cell (RBC) Count 2.66 mill/uL (4.70-6.10); White Blood Cell (WBC) Count 11.5 thou/uL (4.8-10.8)
[2020-10-02 05:28] LABS: Anion Gap 11 mmol/L (10-20); BUN (Urea Nitrogen) 6 mg/dL (8.4-25.7); Calc. Creatinine Clearance 87 mL/min (70-130); Calcium 8.7 mg/dL (7.8-10.44); Carbon Dioxide 28 mmol/L (23-31); Chloride 105 mmol/L (98-107); Glucose 118 mg/dL (80-115); Potassium 3.7 mmol/L (3.5-5.1); Sodium 140 mmol/L (136-145)
[2020-10-02] MEDS: cefTRIAXone\\ROCEPHIN 2 GM in Sodium Chloride 0.9% 100 ML IVPB SCH ×2 (08:50→20:15)
[2020-10-02] MEDS: Folic Acid/Vit B Comp W-C PO SCH (09:01)
[2020-10-02] MEDS: Losartan 25 MG TAB PO SCH (09:01)
[2020-10-02] MEDS: Saccharomyces boulardii 250 MG CAP PO SCH ×2 (09:02→20:15)
[2020-10-02] MEDS: Carvedilol 6.25 MG TAB PO SCH ×2 (09:02→20:15)
[2020-10-02] MEDS: Alogliptin 6.25 MG TAB PO SCH (09:02)
[2020-10-02] MEDS: Clopidogrel Bisulfate 75 MG TAB PO SCH (09:03)
[2020-10-02] MEDS: Aspirin 81 mg Enteric Coated Tablet PO SCH (09:03)
[2020-10-02] MEDS: Tamsulosin HCl 0.4 MG CAP PO SCH (09:04)
[2020-10-02] MEDS: Insulin Regular 300 UNITS/3 ML VIAL SC PRN (12:22)
[2020-10-02] MEDS ORDERED: Activase 2 MG VIAL CATH SCH (14:15)
[2020-10-02] MEDS ORDERED: Sterile Water 10 ML VIAL IVP SCH (14:15)
[2020-10-02] MEDS: Atorvastatin Calcium 40 MG TAB PO SCH (20:15)
[2020-10-02] MEDS: GUAIFENESIN SF SOLN 200 MG/10 ML UDCUP PO PRN (20:27)
[2020-10-03] MEDS: Ampicillin 2 GM in Sodium Chloride 0.9% 100 ML IVPB SCH ×5 (01:48→21:52)
[2020-10-03 05:50] LABS: Anion Gap 10 mmol/L (10-20); BUN (Urea Nitrogen) 7 mg/dL (8.4-25.7); Calc. Creatinine Clearance 92 mL/min (70-130); Calcium 8.8 mg/dL (7.8-10.44); Carbon Dioxide 31 mmol/L (23-31); Chloride 105 mmol/L (98-107); Glucose 104 mg/dL (80-115); Magnesium 1.9 mg/dL (1.6-2.6); Potassium 3.7 mmol/L (3.5-5.1); Sodium 142 mmol/L (136-145)
[2020-10-03] MEDS: Fluticasone Propionate Nasal Spray 16 gm Bottle NASAL SCH ×2 (07:15→18:49)
[2020-10-03 08:07] LABS: #Basophils 0.1 thou/uL (0.0-0.2); #Eosinphils 0.5 thou/uL (0.0-0.7); #Lymphocytes 1.3 thou/uL (1.20-3.40); #Monocytes 1.2 thou/uL (0.11-0.59); #Neutrophils 8.1 thou/uL (1.40-6.50); %Basophils 0.6 % (0.0-1.0); %Eosinophils 4.5 % (0.0-10.0); %Lymphocytes 11.3 % (21.0-51.0); %Monocytes 10.4 % (0.0-10.0); %Neutrophils 73.2 % (42.0-75.0); Hemoglobin 7.5 g/dL (14.0-18.0); Mean Corpuscular HGB CONC 31.6 g/dL (32.0-36.0); Mean Corpuscular Hemoglobin 29.3 pg (27.0-31.0); Mean Corpuscular Volume 92.9 fL (78.0-98.0); Mean Platelet Volume 7.4 fL (7.4-10.4); Platelet Count 440 thou/uL (130-400); RBC Distribution Width 14.8 % (11.5-14.5); Red Blood Cell (RBC) Count 2.57 mill/uL (4.70-6.10)
[2020-10-03] MEDS: Alogliptin 6.25 MG TAB PO SCH (08:20)
[2020-10-03] MEDS: Saccharomyces boulardii 250 MG CAP PO SCH ×2 (08:20→21:51)
[2020-10-03] MEDS: Carvedilol 6.25 MG TAB PO SCH ×2 (08:20→21:50)
[2020-10-03] MEDS: Losartan 25 MG TAB PO SCH (08:22)
[2020-10-03] MEDS: Folic Acid/Vit B Comp W-C PO SCH (08:22)
[2020-10-03] MEDS: Tamsulosin HCl 0.4 MG CAP PO SCH (08:24)
[2020-10-03] MEDS: Aspirin 81 mg Enteric Coated Tablet PO SCH (08:24)
[2020-10-03] MEDS: Clopidogrel Bisulfate 75 MG TAB PO SCH (08:24)
[2020-10-03] MEDS: cefTRIAXone\\ROCEPHIN 2 GM in Sodium Chloride 0.9% 100 ML IVPB SCH ×2 (09:04→21:52)
[2020-10-03] MEDS: Insulin Regular 300 UNITS/3 ML VIAL SC PRN (11:50)
[2020-10-03] MEDS: GUAIFENESIN SF SOLN 200 MG/10 ML UDCUP PO PRN (15:14)
[2020-10-03] MEDS ORDERED: Ketamine 50 MG/ML (10ML VIAL) ONE (17:35)
[2020-10-03] MEDS ORDERED: Rocuronium Bromide 10 MG/ML (10ML VIAL) ONE (17:35)
[2020-10-03] MEDS ORDERED: Succinylcholine 200 MG/10 ml SYRINGE FS ONE (17:42)
[2020-10-03 17:44] LABS: #Eosinphils 0.5 thou/uL (0.0-0.7); #Lymphocytes 1.3 thou/uL (1.20-3.40); #Neutrophils 6.6 thou/uL (1.40-6.50); %Basophils 0.3 % (0.0-1.0); %Eosinophils 5.2 % (0.0-10.0); %Lymphocytes 13.7 % (21.0-51.0); %Monocytes 10.1 % (0.0-10.0); %Neutrophils 70.7 % (42.0-75.0); Hemoglobin 7.2 g/dL (14.0-18.0); Mean Corpuscular HGB CONC 31.1 g/dL (32.0-36.0); Mean Corpuscular Volume 93.3 fL (78.0-98.0); Mean Platelet Volume 7.7 fL (7.4-10.4); Platelet Count 499 thou/uL (130-400); RBC Distribution Width 14.8 % (11.5-14.5); Red Blood Cell (RBC) Count 2.47 mill/uL (4.70-6.10); White Blood Cell (WBC) Count 9.4 thou/uL (4.8-10.8)
[2020-10-03 17:54] LABS: INR-International Normal Ratio 1.1; Prothrombin Time 14.1 sec (12.0-14.7)
[2020-10-03 18:08] LABS: ALT (SGPT) Less than 7 U/L (8-55); AST (SGOT) 15 U/L (5-34); Albumin 2.7 g/dL (3.4-4.8); Alkaline Phosphatase 83 U/L (40-110); Anion Gap 12 mmol/L (10-20); BUN (Urea Nitrogen) 7 mg/dL (8.4-25.7); Bilirubin, Total 0.2 mg/dL (0.2-1.2); CK (CPK) 28 U/L (30-200); Calc. Creatinine Clearance 92 mL/min (70-130); Calcium 8.8 mg/dL (7.8-10.44); Carbon Dioxide 28 mmol/L (23-31); Chloride 106 mmol/L (98-107); Globulin 3.7 g/dL (2.4-3.5); Glucose 116 mg/dL (80-115); Protein, Total 6.4 g/dL (5.8-8.1); Sodium 142 mmol/L (136-145)
[2020-10-03 18:30] LABS: CKMB 1.5 ng/mL (0-6.6)
[2020-10-03] MEDS ORDERED: Lidocaine 1% (PF) 30 ML VIAL ONE (18:32)
[2020-10-03] MEDS ORDERED: Fentanyl BOLUS 250 ML IVPB PRN (19:00)
[2020-10-03] MEDS ORDERED: Propofol 1,000 MG/100 ML VIAL IV PRN (19:00)
[2020-10-03] MEDS ORDERED: Propofol BOLUS 1,000 MG/100 ML VIAL IV PRN (19:00)
[2020-10-03] MEDS ORDERED: Mannitol 12.5 GM/50 ML IV SCH (19:00)
[2020-10-03] MEDS ORDERED: Fentanyl CADD 100 ML IV SCH (19:00)
[2020-10-03] MEDS: Sodium Chloride 0.9% 1,000 ML IV SCH (19:00)
[2020-10-03] MEDS ORDERED: Lorazepam 2 MG/ML VIAL SLOW IVP PRN (19:00)
[2020-10-03] MEDS ORDERED: DISCONTINUE PREVIOUS NARCOTIC PAIN MEDICATIONS AND BENZODIAZEPINES FS SCH (19:00)
[2020-10-03 19:38] LABS: Actual Bicarbonate (HCO3a) 30.6 mEq/L (22-28); Base Excess (BEa) 4.9 mEq/L (-2.0 to +3.0); CO2 Tension 53.2 mmHg (35.0-45.0); Calcium, Ionized (arterial) 1.17 mmol/L (1.12-1.30); Carboxyhemoglobin (COHb) 0.8 gm% (0.0-3.0); Hemoglobin (Hb) 7.1 g/dL (14.0-18.0); O2 Tension (PaO2), arterial 95.3 mmHg (> 80.0); Potassium - ABG Lab 3.86 mmol/L (3.70-5.30); pH, Arterial 7.38 (7.35-7.45)
[2020-10-03] MEDS: Labetalol HCl 100 MG/20 ML VIAL SLOW IVP PRN (19:38)
[2020-10-03 19:40] LABS: Puncture Site RRA
[2020-10-03] MEDS: Atorvastatin Calcium 40 MG TAB PO SCH (21:51)
[2020-10-03] MEDS: hydrALAZINE 20 MG/ML VIAL SLOW IVP PRN (23:03)
[2020-10-04] MEDS: Ampicillin 2 GM in Sodium Chloride 0.9% 100 ML IVPB SCH ×7 (01:22→20:44)
[2020-10-04] MEDS: Labetalol HCl 100 MG/20 ML VIAL SLOW IVP PRN ×3 (02:05→17:27)
[2020-10-04 04:19] LABS: #Eosinphils 0.1 thou/uL (0.0-0.7); #Lymphocytes 1.2 thou/uL (1.20-3.40); #Monocytes 1.1 thou/uL (0.11-0.59); #Neutrophils 9.6 thou/uL (1.40-6.50); %Basophils 0.4 % (0.0-1.0); %Eosinophils 0.6 % (0.0-10.0); %Lymphocytes 10.3 % (21.0-51.0); %Monocytes 9.3 % (0.0-10.0); %Neutrophils 79.4 % (42.0-75.0); Hemoglobin 6.9 g/dL (14.0-18.0); Mean Corpuscular HGB CONC 32.2 g/dL (32.0-36.0); Mean Corpuscular Hemoglobin 30.2 pg (27.0-31.0); Mean Corpuscular Volume 93.8 fL (78.0-98.0); Mean Platelet Volume 7.7 fL (7.4-10.4); Platelet Count 460 thou/uL (130-400); RBC Distribution Width 14.7 % (11.5-14.5); Red Blood Cell (RBC) Count 2.28 mill/uL (4.70-6.10)
[2020-10-04] MEDS: Sodium Chloride 0.9% 1,000 ML IV SCH ×3 (05:50→20:48)
[2020-10-04 06:54] LABS: Anion Gap 13 mmol/L (10-20); BUN (Urea Nitrogen) 7 mg/dL (8.4-25.7); Calc. Creatinine Clearance 99 mL/min (70-130); Calcium 8.6 mg/dL (7.8-10.44); Carbon Dioxide 27 mmol/L (23-31); Chloride 105 mmol/L (98-107); Glucose 87 mg/dL (80-115); Potassium 3.6 mmol/L (3.5-5.1); Sodium 141 mmol/L (136-145)
[2020-10-04] MEDS: Tamsulosin HCl 0.4 MG CAP PO SCH (09:05)
[2020-10-04] MEDS: Aspirin 81 mg Enteric Coated Tablet PO SCH (09:05)
[2020-10-04] MEDS: Saccharomyces boulardii 250 MG CAP PO SCH ×2 (09:05→20:47)
[2020-10-04] MEDS: Carvedilol 6.25 MG TAB PO SCH ×2 (09:05→20:45)
[2020-10-04] MEDS: Folic Acid/Vit B Comp W-C PO SCH (09:06)
[2020-10-04] MEDS: Losartan 25 MG TAB PO SCH (09:06)
[2020-10-04] MEDS: Alogliptin 6.25 MG TAB PO SCH (09:08)
[2020-10-04] MEDS: Fluticasone Propionate Nasal Spray 16 gm Bottle NASAL SCH (09:49)
[2020-10-04] MEDS: cefTRIAXone\\ROCEPHIN 2 GM in Sodium Chloride 0.9% 100 ML IVPB SCH ×2 (09:52→20:48)
[2020-10-04] MEDS ORDERED: Heparin 1,000 UNITS/ML VIAL ONE (10:24)
[2020-10-04] MEDS: hydrALAZINE 20 MG/ML VIAL SLOW IVP PRN ×2 (18:32→19:39)
[2020-10-04] MEDS: Atorvastatin Calcium 40 MG TAB PO SCH (20:45)
[2020-10-05] MEDS: Ampicillin 2 GM in Sodium Chloride 0.9% 100 ML IVPB SCH ×6 (00:22→20:37)
[2020-10-05 03:47] LABS: Band 4 % (5-11); Hemoglobin 8.4 g/dL (14.0-18.0); Hypochromia SLIGHT = 6-15 cells (100X) (0-5/hpf); Lymphocytes 7 % (21-51); MDiff Complete? YES; Mean Corpuscular HGB CONC 32.2 g/dL (32.0-36.0); Mean Corpuscular Hemoglobin 29.5 pg (27.0-31.0); Mean Corpuscular Volume 91.6 fL (78.0-98.0); Mean Platelet Volume 7.7 fL (7.4-10.4); Monocytes 7 % (0-10); Neutrophil 82 % (42-75); Platelet Count 353 thou/uL (130-400); Platelet Morphology Comment Appears Adequate; RBC Distribution Width 14.8 % (11.5-14.5); Red Blood Cell (RBC) Count 2.86 mill/uL (4.70-6.10); White Blood Cell (WBC) Count 15.7 thou/uL (4.8-10.8)
[2020-10-05 03:49] LABS: Anion Gap 15 mmol/L (10-20); BUN (Urea Nitrogen) 10 mg/dL (8.4-25.7); Calc. Creatinine Clearance 98 mL/min (70-130); Calcium 8.5 mg/dL (7.8-10.44); Carbon Dioxide 25 mmol/L (23-31); Chloride 108 mmol/L (98-107); Glucose 127 mg/dL (80-115); Potassium 3.5 mmol/L (3.5-5.1); Sodium 144 mmol/L (136-145)
[2020-10-05] MEDS: hydrALAZINE 20 MG/ML VIAL SLOW IVP PRN ×3 (06:07→12:50)
[2020-10-05] MEDS: Alogliptin 6.25 MG TAB PO SCH (07:59)
[2020-10-05] MEDS: Carvedilol 6.25 MG TAB PO SCH ×2 (08:00→20:36)
[2020-10-05] MEDS: Aspirin 81 mg Enteric Coated Tablet PO SCH (08:00)
[2020-10-05] MEDS: Fluticasone Propionate Nasal Spray 16 gm Bottle NASAL SCH (08:01)
[2020-10-05] MEDS: Tamsulosin HCl 0.4 MG CAP PO SCH (08:01)
[2020-10-05] MEDS: Folic Acid/Vit B Comp W-C PO SCH (08:01)
[2020-10-05] MEDS: Saccharomyces boulardii 250 MG CAP PO SCH ×2 (08:01→20:37)
[2020-10-05] MEDS: cefTRIAXone\\ROCEPHIN 2 GM in Sodium Chloride 0.9% 100 ML IVPB SCH (09:34)
[2020-10-05] MEDS ORDERED: Furosemide 20 MG/2 ML VIAL SLOW IVP SCH (09:45)
[2020-10-05] MEDS: Sodium Chloride 0.9% 1,000 ML IV SCH (10:04)
[2020-10-05] MEDS: Atorvastatin Calcium 40 MG TAB PO SCH (20:37)
[2020-10-06] MEDS: hydrALAZINE 20 MG/ML VIAL SLOW IVP PRN ×2 (00:14→06:51)
[2020-10-06] MEDS: Morphine 2 MG/ML VIAL SLOW IVP PRN ×4 (00:15→10:48)
[2020-10-06] MEDS: Ampicillin 2 GM in Sodium Chloride 0.9% 100 ML IVPB SCH ×6 (00:33→21:31)
[2020-10-06 04:02] LABS: Hemoglobin 8.5 g/dL (14.0-18.0); Mean Corpuscular HGB CONC 31.2 g/dL (32.0-36.0); Mean Corpuscular Hemoglobin 28.8 pg (27.0-31.0); Mean Corpuscular Volume 92.1 fL (78.0-98.0); Mean Platelet Volume 8.1 fL (7.4-10.4); Platelet Count 402 thou/uL (130-400); Red Blood Cell (RBC) Count 2.95 mill/uL (4.70-6.10)
[2020-10-06 04:13] LABS: Anion Gap 16 mmol/L (10-20); BUN (Urea Nitrogen) 12 mg/dL (8.4-25.7); Calc. Creatinine Clearance 105 mL/min (70-130); Calcium 8.4 mg/dL (7.8-10.44); Carbon Dioxide 22 mmol/L (23-31); Chloride 111 mmol/L (98-107); Glucose 115 mg/dL (80-115); Potassium 3.2 mmol/L (3.5-5.1); Sodium 146 mmol/L (136-145)
[2020-10-06 04:27] LABS: MDiff Complete? YES; Monocytes 3 % (0-10); Neutrophil 97 % (42-75); Platelet Morphology Comment Appears Increased; White Blood Cell (WBC) Count 21.8 thou/uL (4.8-10.8)
[2020-10-06] MEDS: GUAIFENESIN SF SOLN 200 MG/10 ML UDCUP PO PRN (05:19)
[2020-10-06] MEDS: Sodium Chloride 0.9% 1,000 ML IV SCH ×2 (06:18→13:51)
[2020-10-06] MEDS: Labetalol HCl 100 MG/20 ML VIAL SLOW IVP PRN (07:08)
[2020-10-06 07:58] LABS: Actual Bicarbonate (HCO3a) 23.2 mEq/L (22-28); Base Excess (BEa) -1.1 mEq/L (-2.0 to +3.0); Calcium, Ionized (arterial) 1.21 mmol/L (1.12-1.30); Carboxyhemoglobin (COHb) 0.5 gm% (0.0-3.0); Hemoglobin (Hb) 9.3 g/dL (14.0-18.0); Potassium - ABG Lab 3.09 mmol/L (3.70-5.30); pH, Arterial 7.42 (7.35-7.45)
[2020-10-06] MEDS: Carvedilol 6.25 MG TAB PO SCH ×2 (08:04→22:24)
[2020-10-06] MEDS: Tamsulosin HCl 0.4 MG CAP PO SCH (08:04)
[2020-10-06] MEDS: Aspirin 81 mg Enteric Coated Tablet PO SCH (08:04)
[2020-10-06] MEDS: Alogliptin 6.25 MG TAB PO SCH (08:04)
[2020-10-06] MEDS: Folic Acid/Vit B Comp W-C PO SCH (08:04)
[2020-10-06] MEDS: Saccharomyces boulardii 250 MG CAP PO SCH ×2 (08:05→22:24)
[2020-10-06] MEDS: Fluticasone Propionate Nasal Spray 16 gm Bottle NASAL SCH (08:06)
[2020-10-06 08:11] LABS: Puncture Site RRA
[2020-10-06] MEDS ORDERED: hydrALAZINE 20 MG/ML VIAL ONE (09:22)
[2020-10-06] MEDS ORDERED: hydrALAZINE 20 MG/ML VIAL SLOW IVP SCH (10:00)
[2020-10-06] MEDS ORDERED: niCARdipine 25 MG in Sodium Chloride 0.9% 250 ML 240 ML IVPB SCH (10:15)
[2020-10-06] MEDS ORDERED: niCARdipine 40MG In NaCl 40 MG/200 ML BAG IVPB SCH (13:15)
[2020-10-06] MEDS: hydrALAZINE 20 MG/ML VIAL SLOW IVP SCH ×3 (14:58→22:35)
[2020-10-06] MEDS ORDERED: Furosemide 20 MG/2 ML VIAL SLOW IVP SCH (16:30)
[2020-10-06] MEDS ORDERED: Electrolyte Replacement Protocol FS PRN (17:45)
[2020-10-06] MEDS ORDERED: Potassium Chloride 40 MEQ in Premix Bag 1 BAG IVPB SCH (19:45)
[2020-10-06] MEDS: Atorvastatin Calcium 40 MG TAB PO SCH (22:24)
[2020-10-07] MEDS: Ampicillin 2 GM in Sodium Chloride 0.9% 100 ML IVPB SCH ×6 (00:22→21:43)
[2020-10-07] MEDS: Labetalol HCl 100 MG/20 ML VIAL SLOW IVP PRN (00:22)
[2020-10-07] MEDS: hydrALAZINE 20 MG/ML VIAL SLOW IVP SCH ×6 (02:12→22:10)
[2020-10-07 03:45] LABS: Band 4 % (5-11); Hemoglobin 9.7 g/dL (14.0-18.0); Hypochromia SLIGHT = 6-15 cells (100X) (0-5/hpf); Lymphocytes 3 % (21-51); MDiff Complete? YES; Mean Corpuscular HGB CONC 31.9 g/dL (32.0-36.0); Mean Corpuscular Hemoglobin 29.9 pg (27.0-31.0); Mean Corpuscular Volume 93.7 fL (78.0-98.0); Mean Platelet Volume 7.7 fL (7.4-10.4); Monocytes 6 % (0-10); Neutrophil 87 % (42-75); Platelet Count 454 thou/uL (130-400); Platelet Morphology Comment Appears Increased; RBC Distribution Width 15.4 % (11.5-14.5); Red Blood Cell (RBC) Count 3.22 mill/uL (4.70-6.10); White Blood Cell (WBC) Count 15.2 thou/uL (4.8-10.8)
[2020-10-07 03:47] LABS: Anion Gap 13 mmol/L (10-20); BUN (Urea Nitrogen) 12 mg/dL (8.4-25.7); Calc. Creatinine Clearance 99 mL/min (70-130); Carbon Dioxide 24 mmol/L (23-31); Chloride 112 mmol/L (98-107); Glucose 141 mg/dL (80-115); Potassium 3.7 mmol/L (3.5-5.1); Sodium 145 mmol/L (136-145)
[2020-10-07] MEDS: Carvedilol 6.25 MG TAB PO SCH ×2 (09:09→21:47)
[2020-10-07] MEDS: Alogliptin 6.25 MG TAB PO SCH (09:09)
[2020-10-07] MEDS: Tamsulosin HCl 0.4 MG CAP PO SCH (09:09)
[2020-10-07] MEDS: Aspirin 81 mg Enteric Coated Tablet PO SCH (09:10)
[2020-10-07] MEDS: Saccharomyces boulardii 250 MG CAP PO SCH ×2 (09:10→21:48)
[2020-10-07] MEDS: Fluticasone Propionate Nasal Spray 16 gm Bottle NASAL SCH (10:18)
[2020-10-07] MEDS: Folic Acid/Vit B Comp W-C PO SCH (10:20)
[2020-10-07] MEDS ORDERED: hydrALAZINE 20 MG/ML VIAL ONE ×2 (14:31→17:59)
[2020-10-07] MEDS ORDERED: Guaifenesin DM 100-10/5 ML UDCUP PO PRN (17:16)
[2020-10-07] MEDS: Sodium Chloride 0.9% 1,000 ML IV SCH ×2 (18:05→23:06)
[2020-10-07] MEDS: Pantoprazole 40 MG GRANULES PACKET PO SCH (21:48)
[2020-10-07] MEDS: Atorvastatin Calcium 40 MG TAB PO SCH (21:48)
[2020-10-08] MEDS: hydrALAZINE 20 MG/ML VIAL SLOW IVP SCH ×7 (01:10→22:28)
[2020-10-08] MEDS: Ampicillin 2 GM in Sodium Chloride 0.9% 100 ML IVPB SCH ×6 (01:12→21:37)
[2020-10-08 03:56] LABS: Hemoglobin 9.4 g/dL (14.0-18.0); Mean Corpuscular HGB CONC 32.1 g/dL (32.0-36.0); Mean Corpuscular Hemoglobin 30.8 pg (27.0-31.0); Mean Corpuscular Volume 95.8 fL (78.0-98.0); Mean Platelet Volume 8.1 fL (7.4-10.4); Platelet Count 418 thou/uL (130-400); RBC Distribution Width 15.3 % (11.5-14.5); Red Blood Cell (RBC) Count 3.06 mill/uL (4.70-6.10); White Blood Cell (WBC) Count 15.3 thou/uL (4.8-10.8)
[2020-10-08] MEDS: Insulin Regular 300 UNITS/3 ML VIAL SC PRN (03:59)
[2020-10-08 04:05] LABS: Anion Gap 12 mmol/L (10-20); BUN (Urea Nitrogen) 15 mg/dL (8.4-25.7); Calc. Creatinine Clearance 100 mL/min (70-130); Calcium 8.8 mg/dL (7.8-10.44); Carbon Dioxide 26 mmol/L (23-31); Chloride 113 mmol/L (98-107); Glucose 180 mg/dL (80-115); Potassium 3.4 mmol/L (3.5-5.1); Sodium 148 mmol/L (136-145)
[2020-10-08 04:20] LABS: Eosinophils 1 % (0-10); Lymphocytes 4 % (21-51); MDiff Complete? YES; Monocytes 3 % (0-10); Neutrophil 92 % (42-75); Platelet Morphology Comment Appears Increased
[2020-10-08] MEDS ORDERED: Potassium Chloride 40 MEQ in Premix Bag 1 BAG IVPB SCH (05:30)
[2020-10-08] MEDS: Carvedilol 6.25 MG TAB PO SCH ×2 (10:00→21:38)
[2020-10-08] MEDS: Pantoprazole 40 MG GRANULES PACKET PO SCH ×2 (10:00→21:38)
[2020-10-08] MEDS: Folic Acid/Vit B Comp W-C PO SCH (10:00)
[2020-10-08] MEDS: Saccharomyces boulardii 250 MG CAP PO SCH ×2 (10:00→21:37)
[2020-10-08] MEDS: Tamsulosin HCl 0.4 MG CAP PO SCH (10:00)
[2020-10-08] MEDS: Alogliptin 6.25 MG TAB PO SCH (10:01)
[2020-10-08] MEDS: Aspirin 81 mg Enteric Coated Tablet PO SCH (10:01)
[2020-10-08] MEDS: Fluticasone Propionate Nasal Spray 16 gm Bottle NASAL SCH (11:11)
[2020-10-08] MEDS: Sodium Chloride 0.9% 1,000 ML IV SCH (13:40)
[2020-10-08] MEDS ORDERED: Midazolam HCl 2 mg/2 ml Vial ONE (13:45)
[2020-10-08] MEDS ORDERED: Propofol 1,000 MG/100 ML VIAL IV ONE (13:46)
[2020-10-08] MEDS ORDERED: Fentanyl CADD 100 ML IV SCH (14:30)
[2020-10-08] MEDS ORDERED: Propofol BOLUS 1,000 MG/100 ML VIAL IV PRN (14:30)
[2020-10-08] MEDS ORDERED: Fentanyl BOLUS 250 ML IVPB PRN (14:30)
[2020-10-08] MEDS ORDERED: Morphine 2 MG/ML VIAL SLOW IVP PRN (14:30)
[2020-10-08] MEDS ORDERED: Lorazepam 2 MG/ML VIAL SLOW IVP PRN (14:30)
[2020-10-08] MEDS ORDERED: DISCONTINUE PREVIOUS NARCOTIC PAIN MEDICATIONS AND BENZODIAZEPINES FS SCH (14:30)
[2020-10-08 14:40] LABS: Actual Bicarbonate (HCO3a) 27.1 mEq/L (22-28); Base Excess (BEa) 1.1 mEq/L (-2.0 to +3.0); CO2 Tension 49.9 mmHg (35.0-45.0); Calcium, Ionized (arterial) 1.26 mmol/L (1.12-1.30); Carboxyhemoglobin (COHb) 0.2 gm% (0.0-3.0); Hemoglobin (Hb) 9.6 g/dL (14.0-18.0); O2 Tension (PaO2), arterial 115.7 mmHg (> 80.0); Potassium - ABG Lab 3.44 mmol/L (3.70-5.30); pH, Arterial 7.35 (7.35-7.45)
[2020-10-08] MEDS ORDERED: Fentanyl CADD 100 ML ONE (14:41)
[2020-10-08 14:43] LABS: ALV-art Gradient 107.125 mmHg (0-20); Puncture Site RRA
[2020-10-08] MEDS ORDERED: Lidocaine 1% w/Epinephrine 1:100K 20 ML VIAL IJ SCH (17:00)
[2020-10-08] MEDS ORDERED: Midazolam HCl 2 mg/2 ml Vial SLOW IVP SCH (17:15)
[2020-10-08] MEDS: Atorvastatin Calcium 40 MG TAB PO SCH (21:38)
[2020-10-08] MEDS ORDERED: Pancrelipase DR 12,000 1 CAP FS PRN (22:00)
[2020-10-08] MEDS ORDERED: Sodium Bicarbonate Tab 325 MG TAB PER TUBE PRN (22:00)
[2020-10-09] MEDS: Sodium Chloride 0.9% 1,000 ML IV SCH ×3 (00:29→21:21)
[2020-10-09] MEDS: Propofol 1,000 MG/100 ML VIAL IV PRN ×2 (01:03→21:25)
[2020-10-09] MEDS: Ampicillin 2 GM in Sodium Chloride 0.9% 100 ML IVPB SCH ×6 (01:03→21:21)
[2020-10-09] MEDS: hydrALAZINE 20 MG/ML VIAL SLOW IVP SCH ×6 (01:04→21:25)
[2020-10-09 04:46] LABS: Band 2 % (5-11); Eosinophils 2 % (0-10); Hemoglobin 8.7 g/dL (14.0-18.0); Hypochromia SLIGHT = 6-15 cells (100X) (0-5/hpf); Lymphocytes 8 % (21-51); MDiff Complete? YES; Mean Corpuscular HGB CONC 31.6 g/dL (32.0-36.0); Mean Corpuscular Hemoglobin 30.2 pg (27.0-31.0); Mean Corpuscular Volume 95.7 fL (78.0-98.0); Mean Platelet Volume 8.2 fL (7.4-10.4); Monocytes 4 % (0-10); Neutrophil 84 % (42-75); Platelet Count 341 thou/uL (130-400); Platelet Morphology Comment Appears Adequate; RBC Distribution Width 15.1 % (11.5-14.5); Red Blood Cell (RBC) Count 2.87 mill/uL (4.70-6.10); White Blood Cell (WBC) Count 10.2 thou/uL (4.8-10.8)
[2020-10-09 04:53] LABS: Anion Gap 10 mmol/L (10-20); BUN (Urea Nitrogen) 13 mg/dL (8.4-25.7); Calc. Creatinine Clearance 109 mL/min (70-130); Calcium 8.3 mg/dL (7.8-10.44); Carbon Dioxide 27 mmol/L (23-31); Chloride 115 mmol/L (98-107); Glucose 89 mg/dL (80-115); Potassium 3.2 mmol/L (3.5-5.1); Sodium 149 mmol/L (136-145)
[2020-10-09] MEDS ORDERED: Potassium Chloride 40 MEQ in Premix Bag 1 BAG IVPB SCH (05:15)
[2020-10-09] MEDS: Carvedilol 6.25 MG TAB PO SCH ×2 (05:33→21:24)
[2020-10-09] MEDS ORDERED: Vecuronium 10 MG VIAL IVP SCH ×2 (07:27→07:46)
[2020-10-09] MEDS ORDERED: CEFAZOLIN 2 GM in Premix Bag 1 BAG IVPB SCH (07:34)
[2020-10-09] MEDS ORDERED: Vecuronium 10 MG VIAL ONE (07:35)
[2020-10-09] MEDS ORDERED: Albumin 5% 0 ML ONE (07:40)
[2020-10-09 07:50] LABS: Actual Bicarbonate (HCO3a) 27.1 mEq/L (22-28); Base Excess (BEa) 1.6 mEq/L (-2.0 to +3.0); CO2 Tension 47.4 mmHg (35.0-45.0); Calcium, Ionized (arterial) 1.25 mmol/L (1.12-1.30); Carboxyhemoglobin (COHb) 0.3 gm% (0.0-3.0); O2 Tension (PaO2), arterial 95.6 mmHg (> 80.0); Potassium - ABG Lab 3.69 mmol/L (3.70-5.30); pH, Arterial 7.38 (7.35-7.45)
[2020-10-09 07:51] LABS: Puncture Site RRA
[2020-10-09] MEDS: Pantoprazole 40 MG GRANULES PACKET PO SCH ×2 (09:33→21:25)
[2020-10-09] MEDS: Tamsulosin HCl 0.4 MG CAP PO SCH (09:33)
[2020-10-09] MEDS: Saccharomyces boulardii 250 MG CAP PO SCH ×2 (09:33→21:25)
[2020-10-09] MEDS: Folic Acid/Vit B Comp W-C PO SCH (09:33)
[2020-10-09] MEDS: Alogliptin 6.25 MG TAB PO SCH (09:34)
[2020-10-09] MEDS: Fluticasone Propionate Nasal Spray 16 gm Bottle NASAL SCH (09:36)
[2020-10-09] MEDS: cefTRIAXone\\ROCEPHIN 2 GM in Sodium Chloride 0.9% 100 ML IVPB SCH (13:32)
[2020-10-09] MEDS: Atorvastatin Calcium 40 MG TAB PO SCH (21:24)
[2020-10-10] MEDS: Ampicillin 2 GM in Sodium Chloride 0.9% 100 ML IVPB SCH ×6 (01:15→20:08)
[2020-10-10] MEDS: cefTRIAXone\\ROCEPHIN 2 GM in Sodium Chloride 0.9% 100 ML IVPB SCH ×2 (01:16→12:49)
[2020-10-10] MEDS: hydrALAZINE 20 MG/ML VIAL SLOW IVP SCH ×6 (01:18→20:12)
[2020-10-10 04:14] LABS: Hemoglobin 9.7 g/dL (14.0-18.0); Mean Corpuscular HGB CONC 30.5 g/dL (32.0-36.0); Mean Corpuscular Hemoglobin 29.5 pg (27.0-31.0); Mean Corpuscular Volume 96.7 fL (78.0-98.0); Mean Platelet Volume 8.2 fL (7.4-10.4); Platelet Count 364 thou/uL (130-400); RBC Distribution Width 15.6 % (11.5-14.5); White Blood Cell (WBC) Count 14.1 thou/uL (4.8-10.8)
[2020-10-10 04:38] LABS: Lymphocytes 10 % (21-51); MDiff Complete? YES; Monocytes 3 % (0-10); Neutrophil 86 % (42-75); Platelet Morphology Comment Appears Adequate
[2020-10-10 04:44] LABS: Anion Gap 14 mmol/L (10-20); BUN (Urea Nitrogen) 11 mg/dL (8.4-25.7); Calc. Creatinine Clearance 113 mL/min (70-130); Calcium 8.9 mg/dL (7.8-10.44); Carbon Dioxide 21 mmol/L (23-31); Chloride 118 mmol/L (98-107); Glucose 91 mg/dL (80-115); Potassium 3.8 mmol/L (3.5-5.1); Sodium 149 mmol/L (136-145)
[2020-10-10] MEDS: Sodium Chloride 0.9% 1,000 ML IV SCH (05:46)
[2020-10-10] MEDS: Saccharomyces boulardii 250 MG CAP PO SCH ×2 (09:35→20:10)
[2020-10-10] MEDS: Tamsulosin HCl 0.4 MG CAP PO SCH (09:35)
[2020-10-10] MEDS: Carvedilol 6.25 MG TAB PO SCH ×2 (09:35→20:11)
[2020-10-10] MEDS: Alogliptin 6.25 MG TAB PO SCH (09:35)
[2020-10-10] MEDS: Pantoprazole 40 MG GRANULES PACKET PO SCH ×2 (09:36→20:11)
[2020-10-10] MEDS: Folic Acid/Vit B Comp W-C PO SCH (09:40)
[2020-10-10] MEDS: Fluticasone Propionate Nasal Spray 16 gm Bottle NASAL SCH (10:21)
[2020-10-10] MEDS: Dextrose 5% in Water 1,000 ML IV SCH (10:54)
[2020-10-10] MEDS: Scopolamine 1.5 mg/72 hour Patch TD SCH (10:55)
[2020-10-10] MEDS ORDERED: Furosemide 20 MG/2 ML VIAL SLOW IVP SCH (11:00)
[2020-10-10] MEDS: Furosemide 20 MG/2 ML VIAL SLOW IVP SCH (13:58)
[2020-10-10] MEDS: Atorvastatin Calcium 40 MG TAB PO SCH (20:10)
[2020-10-11] MEDS: Ampicillin 2 GM in Sodium Chloride 0.9% 100 ML IVPB SCH ×6 (01:19→20:41)
[2020-10-11] MEDS: cefTRIAXone\\ROCEPHIN 2 GM in Sodium Chloride 0.9% 100 ML IVPB SCH ×2 (01:19→14:00)
[2020-10-11] MEDS: hydrALAZINE 20 MG/ML VIAL SLOW IVP SCH ×6 (01:21→22:55)
[2020-10-11 03:47] LABS: Anion Gap 11 mmol/L (10-20); BUN (Urea Nitrogen) 10 mg/dL (8.4-25.7); Calc. Creatinine Clearance 98 mL/min (70-130); Calcium 8.5 mg/dL (7.8-10.44); Carbon Dioxide 25 mmol/L (23-31); Chloride 118 mmol/L (98-107); Glucose 173 mg/dL (80-115); Potassium 4.3 mmol/L (3.5-5.1); Sodium 150 mmol/L (136-145)
[2020-10-11 04:21] LABS: Band 10 % (5-11); Eosinophils 2 % (0-10); Hemoglobin 9.2 g/dL (14.0-18.0); Lymphocytes 13 % (21-51); MDiff Complete? YES; Mean Corpuscular Volume 96.6 fL (78.0-98.0); Mean Platelet Volume 8.5 fL (7.4-10.4); Monocytes 6 % (0-10); Neutrophil 69 % (42-75); Platelet Count 339 thou/uL (130-400); RBC Distribution Width 15.4 % (11.5-14.5); Red Blood Cell (RBC) Count 3.08 mill/uL (4.70-6.10); White Blood Cell (WBC) Count 13.4 thou/uL (4.8-10.8)
[2020-10-11] MEDS: Furosemide 20 MG/2 ML VIAL SLOW IVP SCH ×2 (06:03→14:01)
[2020-10-11] MEDS: Alogliptin 6.25 MG TAB PO SCH (09:15)
[2020-10-11] MEDS: Saccharomyces boulardii 250 MG CAP PO SCH ×2 (09:16→20:41)
[2020-10-11] MEDS: Pantoprazole 40 MG GRANULES PACKET PO SCH ×2 (09:16→20:39)
[2020-10-11] MEDS: Carvedilol 6.25 MG TAB PO SCH ×2 (09:16→20:40)
[2020-10-11] MEDS: Tamsulosin HCl 0.4 MG CAP PO SCH (09:16)
[2020-10-11] MEDS: Dextrose 5% in Water 1,000 ML IV SCH (09:43)
[2020-10-11] MEDS: Folic Acid/Vit B Comp W-C PO SCH (09:59)
[2020-10-11] MEDS: Fluticasone Propionate Nasal Spray 16 gm Bottle NASAL SCH (10:03)
[2020-10-11] MEDS: Insulin Regular 300 UNITS/3 ML VIAL SC PRN ×2 (11:51→23:00)
[2020-10-11 14:16] VITALS: BMI 25.1
[2020-10-11] MEDS: Labetalol HCl 100 MG/20 ML VIAL SLOW IVP PRN (18:08)
[2020-10-11] MEDS: Atorvastatin Calcium 40 MG TAB PO SCH (20:40)
[2020-10-12] MEDS: Ampicillin 2 GM in Sodium Chloride 0.9% 100 ML IVPB SCH ×6 (01:04→21:16)
[2020-10-12] MEDS: cefTRIAXone\\ROCEPHIN 2 GM in Sodium Chloride 0.9% 100 ML IVPB SCH ×2 (02:04→13:16)
[2020-10-12] MEDS: hydrALAZINE 20 MG/ML VIAL SLOW IVP SCH ×6 (02:05→21:17)
[2020-10-12 05:00] LABS: Anion Gap 10 mmol/L (10-20); BUN (Urea Nitrogen) 10 mg/dL (8.4-25.7); Calc. Creatinine Clearance 103 mL/min (70-130); Calcium 8.5 mg/dL (7.8-10.44); Carbon Dioxide 32 mmol/L (23-31); Chloride 111 mmol/L (98-107); Glucose 156 mg/dL (80-115); Potassium 3.2 mmol/L (3.5-5.1); Sodium 150 mmol/L (136-145)
[2020-10-12 05:32] LABS: Band 3 % (5-11); Eosinophils 5 % (0-10); Hemoglobin 8.1 g/dL (14.0-18.0); Lymphocytes 7 % (21-51); MDiff Complete? YES; Mean Corpuscular HGB CONC 30.2 g/dL (32.0-36.0); Mean Corpuscular Hemoglobin 28.9 pg (27.0-31.0); Mean Corpuscular Volume 95.7 fL (78.0-98.0); Mean Platelet Volume 8.1 fL (7.4-10.4); Monocytes 6 % (0-10); Myelocyte 1 % (0-0); Neutrophil 78 % (42-75); Platelet Count 273 thou/uL (130-400); RBC Distribution Width 15.1 % (11.5-14.5); Red Blood Cell (RBC) Count 2.81 mill/uL (4.70-6.10); White Blood Cell (WBC) Count 12.7 thou/uL (4.8-10.8)
[2020-10-12] MEDS: Furosemide 20 MG/2 ML VIAL SLOW IVP SCH (06:00)
[2020-10-12] MEDS: Potassium Chloride 20 MEQ in Premix Bag 1 BAG IVPB SCH ×2 (06:04→09:24)
[2020-10-12] MEDS: Alogliptin 6.25 MG TAB PO SCH (08:50)
[2020-10-12] MEDS: Carvedilol 6.25 MG TAB PO SCH ×2 (08:50→21:16)
[2020-10-12] MEDS: Folic Acid/Vit B Comp W-C PO SCH (08:50)
[2020-10-12] MEDS: Tamsulosin HCl 0.4 MG CAP PO SCH (08:50)
[2020-10-12] MEDS: Saccharomyces boulardii 250 MG CAP PO SCH ×2 (08:50→21:16)
[2020-10-12] MEDS: Pantoprazole 40 MG GRANULES PACKET PO SCH ×2 (08:50→21:17)
[2020-10-12] MEDS: Fluticasone Propionate Nasal Spray 16 gm Bottle NASAL SCH (08:51)
[2020-10-12] MEDS: Dextrose 5% in Water 1,000 ML IV SCH ×2 (13:14→21:18)
[2020-10-12] MEDS: Insulin Regular 300 UNITS/3 ML VIAL SC PRN (15:11)
[2020-10-12] MEDS: Atorvastatin Calcium 40 MG TAB PO SCH (21:17)
[2020-10-13] MEDS: Ampicillin 2 GM in Sodium Chloride 0.9% 100 ML IVPB SCH ×6 (00:53→19:59)
[2020-10-13] MEDS: hydrALAZINE 20 MG/ML VIAL SLOW IVP SCH ×6 (01:00→22:14)
[2020-10-13] MEDS: cefTRIAXone\\ROCEPHIN 2 GM in Sodium Chloride 0.9% 100 ML IVPB SCH (01:56)
[2020-10-13 04:19] LABS: Anion Gap 12 mmol/L (10-20); BUN (Urea Nitrogen) 13 mg/dL (8.4-25.7); Calc. Creatinine Clearance 105 mL/min (70-130); Calcium 8.7 mg/dL (7.8-10.44); Carbon Dioxide 30 mmol/L (23-31); Chloride 109 mmol/L (98-107); Glucose 145 mg/dL (80-115); Potassium 3.3 mmol/L (3.5-5.1); Sodium 148 mmol/L (136-145)
[2020-10-13 04:40] LABS: Band 12 % (5-11); Eosinophils 5 % (0-10); Lymphocytes 13 % (21-51); MDiff Complete? YES; Mean Corpuscular HGB CONC 30.1 g/dL (32.0-36.0); Mean Corpuscular Hemoglobin 28.8 pg (27.0-31.0); Mean Corpuscular Volume 95.8 fL (78.0-98.0); Mean Platelet Volume 8.6 fL (7.4-10.4); Monocytes 5 % (0-10); Neutrophil 65 % (42-75); Platelet Count 261 thou/uL (130-400); RBC Distribution Width 14.9 % (11.5-14.5); Red Blood Cell (RBC) Count 2.79 mill/uL (4.70-6.10)
[2020-10-13] MEDS: Potassium Chloride 20 MEQ in Premix Bag 1 BAG IVPB SCH ×2 (06:30→11:30)
[2020-10-13] MEDS: Alogliptin 6.25 MG TAB PO SCH (10:29)
[2020-10-13] MEDS: Saccharomyces boulardii 250 MG CAP PO SCH ×2 (10:29→20:00)
[2020-10-13] MEDS: Furosemide 40 MG/4 ML VIAL SLOW IVP SCH (10:29)
[2020-10-13] MEDS: Carvedilol 6.25 MG TAB PO SCH ×2 (10:29→20:00)
[2020-10-13] MEDS: Pantoprazole 40 MG GRANULES PACKET PO SCH ×2 (10:29→20:00)
[2020-10-13] MEDS: Folic Acid/Vit B Comp W-C PO SCH (10:30)
[2020-10-13] MEDS: Scopolamine 1.5 mg/72 hour Patch TD SCH (10:30)
[2020-10-13] MEDS: Tamsulosin HCl 0.4 MG CAP PO SCH (10:30)
[2020-10-13] MEDS: Fluticasone Propionate Nasal Spray 16 gm Bottle NASAL SCH (16:50)
[2020-10-13] MEDS: Insulin Regular 300 UNITS/3 ML VIAL SC PRN (16:51)
[2020-10-13] MEDS: Atorvastatin Calcium 40 MG TAB PO SCH (20:00)
[2020-10-13] MEDS ORDERED: Ondansetron PF 4 MG/2 ML Vial IVP PRN (20:18)
[2020-10-13] MEDS ORDERED: Cefepime 2 GM in Sodium Chloride 0.9% 100 ML IVPB SCH (21:00)
[2020-10-14] MEDS: Ampicillin 2 GM in Sodium Chloride 0.9% 100 ML IVPB SCH ×6 (00:36→21:28)
[2020-10-14] MEDS: hydrALAZINE 20 MG/ML VIAL SLOW IVP SCH ×6 (03:34→21:30)
[2020-10-14 03:52] LABS: Hemoglobin 8.7 g/dL (14.0-18.0); Mean Corpuscular HGB CONC 31.2 g/dL (32.0-36.0); Mean Corpuscular Hemoglobin 30.6 pg (27.0-31.0); Mean Corpuscular Volume 98.2 fL (78.0-98.0); Mean Platelet Volume 8.8 fL (7.4-10.4); Platelet Count 245 thou/uL (130-400); Red Blood Cell (RBC) Count 2.85 mill/uL (4.70-6.10); White Blood Cell (WBC) Count 10.3 thou/uL (4.8-10.8)
[2020-10-14 04:15] LABS: Anion Gap 9 mmol/L (10-20); BUN (Urea Nitrogen) 16 mg/dL (8.4-25.7); Calc. Creatinine Clearance 102 mL/min (70-130); Calcium 8.8 mg/dL (7.8-10.44); Carbon Dioxide 35 mmol/L (23-31); Chloride 107 mmol/L (98-107); Glucose 160 mg/dL (80-115); Sodium 147 mmol/L (136-145)
[2020-10-14 04:39] LABS: Band 3 % (5-11); Eosinophils 5 % (0-10); Lymphocytes 8 % (21-51); MDiff Complete? YES; Monocytes 9 % (0-10); Neutrophil 75 % (42-75)
[2020-10-14] MEDS: Insulin Regular 300 UNITS/3 ML VIAL SC PRN ×2 (06:23→17:44)
[2020-10-14] MEDS: Furosemide 40 MG/4 ML VIAL SLOW IVP SCH (09:29)
[2020-10-14] MEDS: Alogliptin 6.25 MG TAB PO SCH (09:30)
[2020-10-14] MEDS: Tamsulosin HCl 0.4 MG CAP PO SCH (09:30)
[2020-10-14] MEDS: Saccharomyces boulardii 250 MG CAP PO SCH ×2 (09:30→21:31)
[2020-10-14] MEDS: Carvedilol 6.25 MG TAB PO SCH ×2 (09:30→21:31)
[2020-10-14] MEDS: Pantoprazole 40 MG GRANULES PACKET PER TUBE SCH ×2 (09:30→21:31)
[2020-10-14] MEDS: Cefepime 2 GM in Sodium Chloride 0.9% 100 ML IVPB SCH ×2 (09:31→17:42)
[2020-10-14] MEDS: Folic Acid/Vit B Comp W-C PO SCH (09:46)
[2020-10-14] MEDS: Fluticasone Propionate Nasal Spray 16 gm Bottle NASAL SCH (13:04)
[2020-10-14] MEDS: MEROPENEM/VABORBACTAM 4 GM in Sodium Chloride 0.9% 250 ML 250 ML IVPB SCH (21:28)
[2020-10-14] MEDS: Atorvastatin Calcium 40 MG TAB PO SCH (21:31)
[2020-10-15] MEDS: Ampicillin 2 GM in Sodium Chloride 0.9% 100 ML IVPB SCH ×5 (01:15→17:49)
[2020-10-15] MEDS: hydrALAZINE 20 MG/ML VIAL SLOW IVP SCH ×5 (01:15→17:49)
[2020-10-15 03:49] LABS: Anion Gap 12 mmol/L (10-20); BUN (Urea Nitrogen) 19 mg/dL (8.4-25.7); Calc. Creatinine Clearance 102 mL/min (70-130); Calcium 8.4 mg/dL (7.8-10.44); Carbon Dioxide 33 mmol/L (23-31); Chloride 107 mmol/L (98-107); Glucose 152 mg/dL (80-115); Potassium 4.1 mmol/L (3.5-5.1); Sodium 148 mmol/L (136-145)
[2020-10-15] MEDS: Insulin Regular 300 UNITS/3 ML VIAL SC PRN (04:14)
[2020-10-15 04:21] LABS: Band 8 % (5-11); Eosinophils 3 % (0-10); Hemoglobin 8.1 g/dL (14.0-18.0); Lymphocytes 16 % (21-51); MDiff Complete? YES; Mean Corpuscular HGB CONC 30.3 g/dL (32.0-36.0); Mean Corpuscular Hemoglobin 29.2 pg (27.0-31.0); Mean Corpuscular Volume 96.6 fL (78.0-98.0); Monocytes 12 % (0-10); Neutrophil 61 % (42-75); Platelet Count 232 thou/uL (130-400); Red Blood Cell (RBC) Count 2.78 mill/uL (4.70-6.10); White Blood Cell (WBC) Count 11.1 thou/uL (4.8-10.8)
[2020-10-15] MEDS: MEROPENEM/VABORBACTAM 4 GM in Sodium Chloride 0.9% 250 ML 250 ML IVPB SCH ×2 (06:25→13:56)
[2020-10-15] MEDS ORDERED: Carvedilol 25 MG TAB PO SCH (09:00)
[2020-10-15] MEDS: Saccharomyces boulardii 250 MG CAP PO SCH (10:02)
[2020-10-15] MEDS: Pantoprazole 40 MG GRANULES PACKET PER TUBE SCH (10:02)
[2020-10-15] MEDS: Tamsulosin HCl 0.4 MG CAP PO SCH (10:02)
[2020-10-15] MEDS: Furosemide 40 MG/4 ML VIAL SLOW IVP SCH (10:02)
[2020-10-15] MEDS: Folic Acid/Vit B Comp W-C PO SCH (10:02)
[2020-10-15] MEDS: Fluticasone Propionate Nasal Spray 16 gm Bottle NASAL SCH (10:03)
[2020-10-15] MEDS: Alogliptin 6.25 MG TAB PO SCH (10:03)
[2020-10-15 15:00] VITALS: TEMP 98.8
[2020-10-15 15:54] LABS: Ref Lab Test Ordered SUSCEPT 1 DRUG; Reference Lab Name LABCORP
[2020-10-15 17:49] VITALS: BP 125/67
== END 2020-10-15 17:50 | DRG 4 ==
LOC: ERS 13:14 → 2SE 16:08 → CCU 17:01
PROVIDERS: ADMIT Internal Medicine; ATTEND Internal Medicine
PROC: 02H633Z Insertion of Infusion Device into Right Atrium, Percutaneous Approach (ICD-10-PCS; 2020-09-26)
PROC: B518ZZA Fluoroscopy of Superior Vena Cava, Guidance (ICD-10-PCS; 2020-09-26)
PROC: B548ZZA Ultrasonography of Superior Vena Cava, Guidance (ICD-10-PCS; 2020-09-26)
PROC: 30233N1 Transfusion of Nonautologous Red Blood Cells into Peripheral Vein, Percutaneous Approach (ICD-10-PCS; 2020-09-27)
PROC: 02HV33Z Insertion of Infusion Device into Superior Vena Cava, Percutaneous Approach (ICD-10-PCS; 2020-09-30)
PROC: B518ZZA Fluoroscopy of Superior Vena Cava, Guidance (ICD-10-PCS; 2020-09-30)
PROC: 30233R1 Transfusion of Nonautologous Platelets into Peripheral Vein, Percutaneous Approach (ICD-10-PCS; 2020-10-03)
PROC: 0BH17EZ Insertion of Endotracheal Airway into Trachea, Via Natural or Artificial Opening (ICD-10-PCS; 2020-10-03)
PROC: 5A1945Z Respiratory Ventilation, 24-96 Consecutive Hours (ICD-10-PCS; 2020-10-03)
PROC: 0DH67UZ Insertion of Feeding Device into Stomach, Via Natural or Artificial Opening (ICD-10-PCS; 2020-10-06)
PROC: 5A0935A Assistance with Respiratory Ventilation, Less than 24 Consecutive Hours, High Flow/Velocity Cannula (ICD-10-PCS; 2020-10-07)
PROC: 5A1955Z Respiratory Ventilation, Greater than 96 Consecutive Hours (ICD-10-PCS; principal; 2020-10-08)
PROC: 0B918ZZ Drainage of Trachea, Via Natural or Artificial Opening Endoscopic (ICD-10-PCS; 2020-10-08)
PROC: 0BH17EZ Insertion of Endotracheal Airway into Trachea, Via Natural or Artificial Opening (ICD-10-PCS; 2020-10-08)
PROC: 0B113F4 Bypass Trachea to Cutaneous with Tracheostomy Device, Percutaneous Approach (ICD-10-PCS; 2020-10-09)
PROC: 0DH63UZ Insertion of Feeding Device into Stomach, Percutaneous Approach (ICD-10-PCS; 2020-10-09)
DX: I63.432 Cerebral infarction due to embolism of left posterior cerebral artery (principal); N18.6 End stage renal disease; I33.0 Acute and subacute infective endocarditis; I21.A1 Myocardial infarction type 2; I61.1 Nontraumatic intracerebral hemorrhage in hemisphere, cortical; I61.5 Nontraumatic intracerebral hemorrhage, intraventricular; J96.01 Acute respiratory failure with hypoxia; N17.9 Acute kidney failure, unspecified; E87.1 Hypo-osmolality and hyponatremia; E87.2 Acidosis; I47.2 Ventricular tachycardia; Z16.29 Resistance to other single specified antibiotic; I12.0 Hypertensive chronic kidney disease with stage 5 chronic kidney disease or end stage renal disease; G93.49 Other encephalopathy; R78.81 Bacteremia; G81.91 Hemiplegia, unspecified affecting right dominant side; B25.8 Other cytomegaloviral diseases; E87.0 Hyperosmolality and hypernatremia; Z20.822 Contact with and (suspected) exposure to COVID-19; R47.01 Aphasia; E11.65 Type 2 diabetes mellitus with hyperglycemia; E11.22 Type 2 diabetes mellitus with diabetic chronic kidney disease; E78.5 Hyperlipidemia, unspecified; I25.10 Atherosclerotic heart disease of native coronary artery without angina pectoris; H53.461 Homonymous bilateral field defects, right side; D63.1 Anemia in chronic kidney disease; I08.3 Combined rheumatic disorders of mitral, aortic and tricuspid valves; B95.2 Enterococcus as the cause of diseases classified elsewhere; R47.81 Slurred speech; R29.701 NIHSS score 1; R13.10 Dysphagia, unspecified; E87.6 Hypokalemia; E83.42 Hypomagnesemia; I48.0 Paroxysmal atrial fibrillation; E87.70 Fluid overload, unspecified; J40 Bronchitis, not specified as acute or chronic; B96.5 Pseudomonas (aeruginosa) (mallei) (pseudomallei) as the cause of diseases classified elsewhere; Z79.4 Long term (current) use of insulin; Z78.1 Physical restraint status; Z99.2 Dependence on renal dialysis; Z95.5 Presence of coronary angioplasty implant and graft; Z86.16 Personal history of COVID-19; Z87.891 Personal history of nicotine dependence; Z86.79 Personal history of other diseases of the circulatory system; Z79.899 Other long term (current) drug therapy; Z79.82 Long term (current) use of aspirin; Z79.01 Long term (current) use of anticoagulants; Z79.51 Long term (current) use of inhaled steroids; Z82.49 Family history of ischemic heart disease and other diseases of the circulatory system; Z79.2 Long term (current) use of antibiotics; Z79.52 Long term (current) use of systemic steroids; Z87.01 Personal history of pneumonia (recurrent); Z86.74 Personal history of sudden cardiac arrest; Z87.19 Personal history of other diseases of the digestive system; Z86.73 Personal history of transient ischemic attack (TIA), and cerebral infarction without residual deficits
CPT/HCPCS: 31624; 36415; 36416; 36430; 36569; 36600; 70450; 70496; 70498; 70551; 71045; 80048; 80053; 80061; 81001; 82140; 82274; 82550; 82553; 82728; 82805; 83090; 83540; 83550; 83605; 83735; 84443; 84484; 85007; 85025; 85027; 85610; 85730; 86038; 86225; 86780; 86850; 86900; 86901; 86922; 87040; 87070; 87077; 87149; 87186; 87205; 93005; 93010; 93306; 94002; 94003; 94640; 95712; 95819; 95957; C1751; J0290; J0360; J0690; J0692; J0696; J1644; J1650; J1815; J1940; J2001; J2060; J2150; J2186; J2250; J2270; J2405; J2704; J2997; J3010; J3475; J3480; J3490; J7050; P9016; P9035; Q9967; U0003; U0005